=== PATIENT | female | born 1955 | race Caucasian/White ===

== ENCOUNTER 2016-10-25 16:12 | Inpatient (IN) | payer MEDICARE, OTHER ==
[2016-10-25] MEDS ORDERED: SODIUM CHLORIDE 0.9% 1,000 ML IV STA (16:43)
[2016-10-25] MEDS ORDERED: ONDANSETRON 4 MG/2 ML VIAL IVP STA (16:43)
--- NOTE | 2016-10-25 16:49 | ED ---
Nausea/Vomiting/Diarrhea HPI - General Chief complaint: Nausea/Vomiting/Diarrhea Stated complaint: chest pain Time Seen by Provider: 10/25/16 16:37 Source: patient Mode of arrival: EMS Limitations: no limitations - History of Present Illness Initial comments: 61-year-old female complains of onset of vomiting yesterday some dizziness diarrhea is concerned because she recently had a fecal transplant for C. diff. She's had no blood or mucous noted in the stool she's having dry heaves. Patient is a home peritoneal dialysis patient on dialysis for the last 6 months. She has history of pacemaker atrial fibrillation. She had no headaches dizziness focal numbness or weakness she has some brief chest discomfort but is actually describing PVCs. Occurs briefly feels like her heart flips. She does have PVCs on the monitor. She has no distinct fever chills no cough congestion she has back muscle pain and some discomfort in the abdomen. - Related Data Home Medications Medication Instructions Recorded Confirmed Insulin Glargine,Hum.rec.anlog 22 unit SQ HS 08/12/15 10/25/16 [Lantus Solostar] Ferrous Sulfate [Iron (65 MG 325 mg PO AC-SUPPER 08/13/15 10/25/16 Elemental)] Ergocalciferol [Vitamin D2 50,000 unit PO TH 04/01/16 10/25/16 (DRISDOL)] Methimazole 5 mg PO DAILY 04/01/16 10/25/16 INSULIN LISPRO (humaLOG) [humaLOG 15 units SQ AC-TID PRN 05/10/16 10/25/16 (formulary)] Omeprazole [PriLOSEC] 20 mg PO AC-BRKFST 05/10/16 10/25/16 Polyethylene Glycol 3350 [Miralax] 17 gm PO DAILY PRN 05/27/16 10/25/16 ALPRAZolam [Xanax] 1 mg PO HS 10/25/16 10/25/16 Albuterol Nebulized [Ventolin 2.5 mg INHALATION RT-QID 10/25/16 10/25/16 Nebulized] Docusate [Colace] 100 mg PO DAILY 10/25/16 10/25/16 HYDROcodone/APAP 10-325MG [[place] 1 tab PO Q6H 10/25/16 10/25/16 10-325] Lidocaine 4% Cream [Lmx 4] 1 applic TOPICAL BID PRN 10/25/16 10/25/16 Previous Rx's Medication Instructions Recorded Torsemide [Demadex] 60 mg PO DAILY tab 08/20/15 Magnesium Oxide [Mag-Ox] 250 mg PO TID tab 08/25/16 Midodrine [ProAmatine] 5 mg PO DAILY #60 tab 10/25/16 Allergies Allergy/AdvReac Type Severity Reaction Status Date / Time ketorolac tromethamine Allergy Severe Rash/Hives Verified 10/25/16 16:14 [From Toradol] influenza virus vaccine, Allergy Intermediate Swelling Verified 10/25/16 16:14 specific [Influenza Virus Vacc,Specific] Review of Systems ROS Statement: Those systems with pertinent positive or pertinent negative responses have been documented in the HPI. ROS Other: All systems not noted in ROS Statement are negative. Constitutional: Denies: fever, chills Eyes: Denies: eye pain ENT: Denies: ear pain, throat pain Respiratory: Denies: cough Cardiovascular: Reports: chest pain, palpitations Gastrointestinal: Reports: abdominal pain, nausea, vomiting, diarrhea Genitourinary: Reports: other (No urine production) Skin: Denies: rash Neurological: Denies: headache, numbness Psychiatric: Denies: anxiety, depression Hematological/Lymphatic: Denies: easy bleeding, easy bruising Past Medical History Past Medical History: Atrial Fibrillation, Chest Pain / Angina, Heart Failure, COPD, CVA/TIA, Deep Vein Thrombosis (DVT), GERD/Reflux, Hyperlipidemia, Hypertension, Memory Impairment, Renal Disease Additional Past Medical History / Comment(s): short term memory impairment;CHF- , UTI with sepsis-septic shock 10/2014; IDDM type II; back pain; neuropathy bilateral feet/legs; osteoporosis;DJD, fx sternum; blood clots/DVT, 2000 CVA with R sided weaknes, chronic kidney disease-peritoneal dialysis, 03/2016 L humerus fx, RLS, paroxysmal AFib, anemia multifactoral, cataracts bilaterally, anemia, rheumatic fever, urinary calculus , C Diff colitis, UTIs, UTI with sepsis/septic shock, chronic abdominal pain, falls. History of Any Multi-Drug Resistant Organisms: C-DIFF Date of last positivie culture/infection: 06/22/2016 MDRO Source:: stool- Cdiff Past Surgical History: Adenoidectomy, AICD, Bladder Surgery, Cholecystectomy, Heart Catheterization, Hysterectomy, Pacemaker, Tonsillectomy Additional Past Surgical History / Comment(s): AICD/pacer, colonoscopy with benign polyps removed, EGD with polyps removed from vocal cord; Benign R lung biopsy; bladder susp, peritoneal dialysis cath inserted , fecal transplant for cdiff 08/2016 Past Anesthesia/Blood Transfusion Reactions: No Reported Reaction Additional Past Anesthesia/Blood Transfusion Reaction / Comment(s): Pt has clausterphobia-doesn't like to be in room with door closed . Pt has received blood in past without reaction. Type of Cardiac Device: AICD Device Placement Date:: Past Psychological History: No Psychological Hx Reported Additional Psychological History / Comment(s): PT LIVES AT HOME WITH HER SWING SAW OPERATOR OF 23 YEARS(GABINO). She has a daughter who is very involved with her care. She has [facility] home care nurse and PT/OT. She NO LONGER DRIVES-HER DAUGHTER TAKES HER TO APPTS AND DOES SHOPPING. Pt uses a walker or cane to ambulate most of the time now. Pt has home o2 at 2.5L/NC ATC, a nebilizer, and hospital bed. 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 Adult daughter is very helpful with day- to-day activity and helping her with her CAPD. No animal exposures. No experience. No international travel Smoking Status: Former smoker Past Alcohol Use History: None Reported Additional Past Alcohol Use History / Comment(s): Pt startes smoking in 1964 and quit in 2011 Past Drug Use History: None Reported Additional Drug Use History / Comment(s): Pt has hx of alcoholism. She has not drank alcohol for 25 yrs. - Past Family History Sister(s) Family Medical History: Cancer Additional Family Medical History / Comment(s): SISTER IN HER MID 40'S OF [place] LYMPHOMA. Father Family Medical History: Congestive Heart Failure (CHF), COPD, Deep Vein Thrombosis (DVT) Additional Family Medical History / Comment(s): ETOH ABUSE. FATHER AT AGE 67 OF EMPHYSEMA AND CHF AND ETOH. Mother Family Medical History: Cancer Additional Family Medical History / Comment(s): MOTHER AT AGE 53 YRS OF LEUKEMIA. General Exam Limitations: no limitations General appearance: alert, in no apparent distress Head exam: Present: atraumatic Eye exam: Present: PERRL, EOMI. Absent: scleral icterus ENT exam: Present: normal oropharynx, mucous membranes moist Neck exam: Present: normal inspection Respiratory exam: Present: normal lung sounds bilaterally Cardiovascular Exam: Present: normal heart sounds GI/Abdominal exam: Present: soft, tenderness (Generalized tenderness no rebound or guarding) Neurological exam: Present: alert, CN II-XII intact Psychiatric exam: Present: normal affect, normal mood Skin exam: Present: warm, dry Course Vital Signs 10/25/16 10/25/16 10/25/16 16:14 17:29 18:29 Temperature 97.1 F L Pulse Rate 114 H 90 100 Respiratory 20 20 20 Rate Blood Pressure 119/75 130/56 113/65 O2 Sat by Pulse 96 97 94 L Oximetry 10/25/16 20:15 Temperature 98.1 F Pulse Rate 90 Respiratory 18 Rate Blood Pressure 101/59 O2 Sat by Pulse 97 Oximetry Medical Decision Making - Medical Decision Making Patient continues to be nauseated her lab is satisfactory for dialysis patient except for her troponin being slightly elevated but with normal CKs is mostly from her troponin leak related to her chronic renal failure. The spoken to Dr. Ko, Randallexor continue nauseated will admit her. To maintain hydration. - Lab Data Result diagrams: 10/25/16 16:20 10/25/16 16:20 Lab Results 10/25/16 10/25/16 10/25/16 Range/Units 13:24 16:20 16:20 WBC 9.0 (3.8-10.6) k/uL RBC 3.76 L (3.80-5.40) m/uL Hgb 11.3 L (11.4-16.0) gm/dL Hct 35.8 (34.0-46.0) % MCV 95.3 (80.0-100.0) fL MCH 30.1 (25.0-35.0) pg MCHC 31.6 (31.0-37.0) g/dL RDW 15.0 (11.5-15.5) % Plt Count 181 (150-450) k/uL Neutrophils % 73 % Lymphocytes % 16 % Monocytes % 6 % Eosinophils % 3 % Basophils % 1 % Neutrophils # 6.6 (1.3-7.7) k/uL Lymphocytes # 1.4 (1.0-4.8) k/uL Monocytes # 0.5 (0-1.0) k/uL Eosinophils # 0.3 (0-0.7) k/uL Basophils # 0.1 (0-0.2) k/uL Sodium 138 (137-145) mmol/L Potassium 4.6 (3.5-5.1) mmol/L Chloride 98 (98-107) mmol/L Carbon Dioxide 27 (22-30) mmol/L Anion Gap 13 mmol/L BUN 29 H (7-17) mg/dL Creatinine 7.20 H* (0.52-1.04) mg/dL Est GFR (MDRD) Af Amer 7 (>60 ml/min/1.73 sqM) Est GFR (MDRD) Non-Af 6 (>60 ml/min/1.73 sqM) Glucose 144 H (74-99) mg/dL POC Glucose (mg/dL) 147 H (75-99) mg/dL POC Glu Mortgage Loan Officer Originator ID Ailyn Douglas Calcium 8.0 L (8.4-10.2) mg/dL Total Bilirubin 0.6 (0.2-1.3) mg/dL AST 11 L (14-36) U/L ALT 30 (9-52) U/L Alkaline Phosphatase 156 H (38-126) U/L Total Creatine Kinase (30-135) U/L CK-MB (CK-2) (0.0-2.4) ng/mL CK-MB (CK-2) Rel Index Troponin I (0.000-0.034) ng/mL Total Protein 5.3 L (6.3-8.2) g/dL Albumin 2.6 L (3.5-5.0) g/dL Amylase <30 L (30-110) U/L Lipase 19 L (23-300) U/L 10/25/16 Range/Units 16:20 WBC (3.8-10.6) k/uL RBC (3.80-5.40) m/uL Hgb (11.4-16.0) gm/dL Hct (34.0-46.0) % MCV (80.0-100.0) fL MCH (25.0-35.0) pg MCHC (31.0-37.0) g/dL RDW (11.5-15.5) % Plt Count (150-450) k/uL Neutrophils % % Lymphocytes % % Monocytes % % Eosinophils % % Basophils % % Neutrophils # (1.3-7.7) k/uL Lymphocytes # (1.0-4.8) k/uL Monocytes # (0-1.0) k/uL Eosinophils # (0-0.7) k/uL Basophils # (0-0.2) k/uL Sodium (137-145) mmol/L Potassium (3.5-5.1) mmol/L Chloride (98-107) mmol/L Carbon Dioxide (22-30) mmol/L Anion Gap mmol/L BUN (7-17) mg/dL Creatinine (0.52-1.04) mg/dL Est GFR (MDRD) Af Amer (>60 ml/min/1.73 sqM) Est GFR (MDRD) Non-Af (>60 ml/min/1.73 sqM) Glucose (74-99) mg/dL POC Glucose (mg/dL) (75-99) mg/dL POC Glu Mortgage Loan Officer Originator ID Calcium (8.4-10.2) mg/dL Total Bilirubin (0.2-1.3) mg/dL AST (14-36) U/L ALT (9-52) U/L Alkaline Phosphatase (38-126) U/L Total Creatine Kinase 28 L (30-135) U/L CK-MB (CK-2) 3.0 H* (0.0-2.4) ng/mL CK-MB (CK-2) Rel Index 10.7 Troponin I 0.053 H* (0.000-0.034) ng/mL Total Protein (6.3-8.2) g/dL Albumin (3.5-5.0) g/dL Amylase (30-110) U/L Lipase (23-300) U/L - EKG Data -: EKG Interpreted by Me 10/25/16 16:49 EKG 10/25/2016 at 1622 ventricular rate 1 10 bpm, WA interval 116 ms, QRS duration 118 ms QT interval 386 ms atrial sensed ventricular paced rhythm biventricular pacemaker detected abnormal ECG - Radiology Data Radiology results: report reviewed Cardiomegaly interstitial opacities correlate for congestive heart failure Disposition Clinical Impression: Persistent vomiting, History of Clostridium difficile, Chronic renal failure Disposition: ADMITTED IP TO THIS HOSP Condition: Fair Time of Disposition: 20:54
[2016-10-25 17:07] LABS: Basophils # (A) 0.1 k/uL (0-0.2); Basophils % (A) 1 %; CH 30.8; CHCM 32.5; Eosinophils # (A) 0.3 k/uL (0-0.7); Eosinophils % (A) 3 %; HCT 35.8 % (34.0-46.0); HDW 2.82; HGB 11.3 gm/dL (11.4-16.0); Luc # (Auto) 0.11; Luc % (Auto) 1; Lymphocytes # (A) 1.4 k/uL (1.0-4.8); Lymphocytes % (A) 16 %; MCH 30.1 pg (25.0-35.0); MCHC 31.6 g/dL (31.0-37.0); MCV 95.3 fL (80.0-100.0); Mean Platelet Volume 8.2; Monocytes # (A) 0.5 k/uL (0-1.0); Monocytes % (A) 6 %; Neutrophils # (A) 6.6 k/uL (1.3-7.7); Neutrophils % (A) 73 %; RBC 3.76 m/uL (3.80-5.40); WBC (Perox) 9.17
[2016-10-25 17:20] LABS: ALT 30 U/L (9-52); AST 11 U/L (14-36); Alkaline Phosphatase 156 U/L (38-126); Amylase <30 U/L (30-110); Anion Gap 13 mmol/L; Blood Urea Nitrogen 29 mg/dL (7-17); Carbon Dioxide 27 mmol/L (22-30); Chloride 98 mmol/L (98-107); Glucose 144 mg/dL (74-99); Potassium 4.6 mmol/L (3.5-5.1); Sodium 138 mmol/L (137-145); Total Bilirubin 0.6 mg/dL (0.2-1.3); Total Protein 5.3 g/dL (6.3-8.2)
--- NOTE | 2016-10-25 17:22 | XR ---
EXAMINATION TYPE: XR chest 2V DATE OF EXAM: 10/25/2016 5:08 PM COMPARISON: 08/21/2016 HISTORY: 61-year-old female weakness, dizziness, pain. TECHNIQUE: AP and lateral views FINDINGS: Left anterior chest wall pacemaker generator with right atrial, right ventricular, and coronary sinus leads. Heart remains mildly enlarged. There is diffuse interstitial densities which persist. Suggestion of a small pleural effusion on the lateral view. No christopher consolidation. IMPRESSION: Mild cardiomegaly with interstitial opacities and small pleural effusion on the lateral view. Correla te for mild CHF with pulmonary vascular congestion.
[2016-10-25] MEDS ORDERED: HYDROmorphone 1 MG/ML 1 ML SYRINGE IVP STA ×2 (17:31→18:16)
[2016-10-25 17:33] LABS: Non-African American GFR(MDRD) 6 (>60 ml/min/1.73 sqM)
[2016-10-25 18:38] LABS: Troponin I 0.053 ng/mL (0.000-0.034)
[2016-10-25 20:40] LABS: Glucose,Whole Blood 147 mg/dL (75-99)
[2016-10-25] MEDS ORDERED: NALOXONE 0.4 MG/ML 1 ML VIAL IV PRN (20:55)
[2016-10-25] MEDS ORDERED: ONDANSETRON 4 MG/2 ML VIAL IVP PRN (20:55)
[2016-10-25] MEDS ORDERED: LIDOCAINE 4% CREAM 5 GM TUBE TOPICAL PRN (20:57)
[2016-10-25] MEDS ORDERED: INSULIN LISPRO (humaLOG) 300 UNIT/3 ML VIAL SQ PRN (20:57)
[2016-10-25] MEDS: HYDROcodone/APAP 10-325MG 1 EACH TAB PO SCH (21:16)
[2016-10-25] MEDS ORDERED: 0.9% NACL WITH KCL 20 MEQ/L 1,000 ML IV SCH (21:30)
[2016-10-25 21:39] LABS: Glucose,Whole Blood 114 mg/dL (75-99)
[2016-10-25] MEDS: INSULIN LISPRO (humaLOG) 300 UNIT/3 ML VIAL SQ SCH (22:09)
[2016-10-25] MEDS: INSULIN GLARGINE 100 UNIT/ML 10 ML VIAL SQ SCH (22:10)
[2016-10-25] MEDS: ALPRAZolam 0.5 MG TAB PO SCH (22:19)
[2016-10-25] MEDS: MAGNESIUM OXIDE 250 MG TAB PO SCH (22:20)
[2016-10-26] MEDS: HYDROcodone/APAP 10-325MG 1 EACH TAB PO SCH ×4 (03:44→20:53)
[2016-10-26 07:37] LABS: Glucose,Whole Blood 82 mg/dL (75-99)
[2016-10-26 08:01] LABS: Basophils # (A) 0.1 k/uL (0-0.2); Basophils % (A) 1 %; CH 30.5; CHCM 31.2; Eosinophils # (A) 0.3 k/uL (0-0.7); Eosinophils % (A) 4 %; HCT 32.3 % (34.0-46.0); HDW 2.73; Hypochromasia Slight; Luc # (Auto) 0.14; Luc % (Auto) 2; Lymphocytes # (A) 1.4 k/uL (1.0-4.8); Lymphocytes % (A) 24 %; MCH 29.7 pg (25.0-35.0); MCHC 30.1 g/dL (31.0-37.0); MCV 98.4 fL (80.0-100.0); Mean Platelet Volume 8.4; Monocytes # (A) 0.4 k/uL (0-1.0); Monocytes % (A) 6 %; Neutrophils # (A) 3.7 k/uL (1.3-7.7); Neutrophils % (A) 63 %; RBC 3.28 m/uL (3.80-5.40); RDW 14.8 % (11.5-15.5); WBC (Perox) 6.33
[2016-10-26 08:08] LABS: HGB 9.7 gm/dL (11.4-16.0)
[2016-10-26 08:33] LABS: Calcium 7.8 mg/dL (8.4-10.2); Potassium 5.3 mmol/L (3.5-5.1)
[2016-10-26] MEDS: MAGNESIUM OXIDE 250 MG TAB PO SCH ×3 (08:40→20:53)
[2016-10-26] MEDS: INSULIN LISPRO (humaLOG) 300 UNIT/3 ML VIAL SQ SCH ×4 (08:40→21:33)
[2016-10-26] MEDS: METHIMAZOLE 5 MG TAB PO SCH (08:40)
[2016-10-26] MEDS: PANTOPRAZOLE 40 MG TABLET PO SCH (08:40)
[2016-10-26] MEDS: TORSEMIDE 20 MG TAB PO SCH (08:40)
[2016-10-26] MEDS: ALBUTEROL NEBULIZED 2.5 MG/3 ML INHALATION SCH ×4 (09:02→19:31)
[2016-10-26 12:21] LABS: Glucose,Whole Blood 91 mg/dL (75-99)
--- NOTE | 2016-10-26 13:00 | P.NPCON ---
History of Present Illness - Reason for Consult Consult date: 10/26/16 end stage renal disease - Chief Complaint Nausea vomiting diarrhea in a patient with CAPD - History of Present Illness This is a 61-year-old female with ESRD on CAPD came in with nausea vomiting diarrhea for the last 2 days no fever chills. No headache dizziness cough shortness of breath. She is improved this morning with no nausea vomiting diarrhea. Past history significant for C. diff colitis with of fecal transplant supposedly approximately in August 2016 Prior to this recent illness 2 days ago she was doing very well on CAPD with a cycler she's not sure of the exchanges as her daughter does her for her. Past history significant for pacer atrial fibrillation COPD DVT and diabetes with diabetic neuropathy with severe pain in her legs. She has had a heart catheterization cholecystectomy tonsillectomy AICD pacer. Past Medical History Past Medical History: Atrial Fibrillation, Chest Pain / Angina, Heart Failure, COPD, CVA/TIA, Deep Vein Thrombosis (DVT), GERD/Reflux, Hyperlipidemia, Hypertension, Memory Impairment, Renal Disease Additional Past Medical History / Comment(s): short term memory impairment;CHF- , UTI with sepsis-septic shock 10/2014; IDDM type II; back pain; neuropathy bilateral feet/legs; osteoporosis;DJD, fx sternum; blood clots/DVT, 2000 CVA with R sided weaknes, chronic kidney disease-peritoneal dialysis, 03/2016 L humerus fx, RLS, paroxysmal AFib, anemia multifactoral, cataracts bilaterally, anemia, rheumatic fever, urinary calculus , C Diff colitis, UTIs, UTI with sepsis/septic shock, chronic abdominal pain, falls. History of Any Multi-Drug Resistant Organisms: C-DIFF Date of last positivie culture/infection: 06/22/2016 MDRO Source:: stool- Cdiff Past Surgical History: Adenoidectomy, AICD, Bladder Surgery, Cholecystectomy, Heart Catheterization, Hysterectomy, Pacemaker, Tonsillectomy Additional Past Surgical History / Comment(s): AICD/pacer, colonoscopy with benign polyps removed, EGD with polyps removed from vocal cord; Benign R lung biopsy; bladder susp, peritoneal dialysis cath inserted , fecal transplant for cdiff 08/2016 at [facility] Past Anesthesia/Blood Transfusion Reactions: No Reported Reaction Additional Past Anesthesia/Blood Transfusion Reaction / Comment(s): Pt has clausterphobia-doesn't like to be in room with door closed . Pt has received blood in past without reaction. Type of Cardiac Device: AICD Device Placement Date:: w Past Psychological History: No Psychological Hx Reported Additional Psychological History / Comment(s): PT LIVES AT HOME WITH HER TUBE MAN OF 23 YEARS(GABINO). She has a daughter who is very involved with her care. She has [facility] home care nurse and PT/OT. She NO LONGER DRIVES-HER DAUGHTER TAKES HER TO APPTS AND DOES SHOPPING. Pt uses a walker or cane to ambulate most of the time now. Pt has home o2 at 2.5L/NC ATC, a nebilizer, and hospital bed. 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 Adult daughter is very helpful with day- to-day activity and helping her with her CAPD. No animal exposures. No experience. No international travel Smoking Status: Former smoker Past Alcohol Use History: None Reported Additional Past Alcohol Use History / Comment(s): Pt startes smoking in 1964 and quit in 2011 Past Drug Use History: None Reported Additional Drug Use History / Comment(s): Pt has hx of alcoholism. She has not drank alcohol for 25 yrs. - Past Family History Sister(s) Family Medical History: Cancer Additional Family Medical History / Comment(s): SISTER IN HER MID 40'S OF [place] LYMPHOMA. Father Family Medical History: Congestive Heart Failure (CHF), COPD, Deep Vein Thrombosis (DVT) Additional Family Medical History / Comment(s): ETOH ABUSE. FATHER AT AGE 67 OF EMPHYSEMA AND CHF AND ETOH. Mother Family Medical History: Cancer Additional Family Medical History / Comment(s): MOTHER AT AGE 53 YRS OF LEUKEMIA. Medications and Allergies Home Medications Medication Instructions Recorded Confirmed Type Insulin Glargine,Hum.rec.anlog 22 unit SQ HS 08/12/15 10/25/16 History [Lantus Solostar] Ferrous Sulfate [Iron (65 MG 325 mg PO AC-SUPPER 08/13/15 10/25/16 History Elemental)] Ergocalciferol [Vitamin D2 50,000 unit PO TH 04/01/16 10/25/16 History (DRISDOL)] Methimazole 5 mg PO DAILY 04/01/16 10/25/16 History INSULIN LISPRO (humaLOG) [humaLOG 15 units SQ AC-TID PRN 05/10/16 10/25/16 History (formulary)] Omeprazole [PriLOSEC] 20 mg PO AC-BRKFST 05/10/16 10/25/16 History Polyethylene Glycol 3350 [Miralax] 17 gm PO DAILY PRN 05/27/16 10/25/16 History ALPRAZolam [Xanax] 1 mg PO HS 10/25/16 10/25/16 History Albuterol Nebulized [Ventolin 2.5 mg INHALATION RT-QID 10/25/16 10/25/16 History Nebulized] Docusate [Colace] 100 mg PO DAILY 10/25/16 10/25/16 History HYDROcodone/APAP 10-325MG [[place] 1 tab PO Q6H 10/25/16 10/25/16 History 10-325] Lidocaine 4% Cream [Lmx 4] 1 applic TOPICAL BID PRN 10/25/16 10/25/16 History Allergies Allergy/AdvReac Type Severity Reaction Status Date / Time ketorolac tromethamine Allergy Severe Rash/Hives Verified 10/25/16 16:14 [From Toradol] influenza virus vaccine, Allergy Intermediate Swelling Verified 10/25/16 16:14 specific [Influenza Virus Vacc,Specific] Physical Exam Vitals: Vital Signs Temp Pulse Pulse Resp BP BP Pulse Ox 10/26/16 07:00 96.9 F L 80 16 83/51 97 10/25/16 23:00 98.2 F 114 H 16 112/68 98 10/25/16 21:16 98.3 F 79 18 106/73 95 Intake and Output 10/25/16 10/26/16 10/26/16 22:59 06:59 14:59 Output Total 0 Balance 0 Output: Urine 0 Stool 0 Other: Voiding Method Toilet Bedside Commode CAPD CAPD # Voids 0 Weight 73 kg On examination she is awake alert oriented. HEENT exam no JVP neck is supple no facial asymmetry no thyromegaly card bruit no nodes in the neck axilla Lungs are clear to auscultation percussion good air entry bilaterally Heart sounds are unremarkable for any murmur rub gallop. Abdomen soft nontender no organomegaly status masses. Extremity exam was no edema Neurologically awake alert oriented. No focal motor deficit. She has painful legs because of neuropathy Results - Lab Results Most recent lab results Calcium 7.8 mg/dL (8.4-10.2) L 10/26/16 07:29 10/26/16 07:29 10/26/16 07:29 Assessment and Plan Plan: Impression. 1. ESRD on CAPD with a cycler at home. 2. Admitted with nausea vomiting diarrhea likely a viral syndrome for 2 days. Better this morning 3. History of diabetes with multiple competition including neuropathy and nephropathy. 4. History of DVT, CVA right-sided weakness which seemingly has resolved, atrial fibrillation, ASHD with cardiac catheterization, pacer, 5. History of recent C. diff colitis requiring fecal transplant in August 2016. 6. Anemia of ESRD. Hemoglobin is 11.3 yesterday and this morning 9.7, likely fall from IV fluids Recommendation. Discontinue IV fluids. We will watch hemoglobin either here in the hospital or as an outpatient. She will need to resume her Epogen. Patient may be discharged home if she is better by this evening. If necessary we'll start her on 1.5% 2500 mL 4 exchanges a day, if she has to stay back..
--- NOTE | 2016-10-26 14:08 | HP ---
DATE OF ADMISSION: 10/25/2016 PRESENTING COMPLAINT: Diarrhea and dry heaving. HISTORY OF PRESENTING COMPLAINT: This is a 61-year-old patient well known to be from multiple prior admissions. Patient's chronic stable medical conditions include end-stage kidney disease on peritoneal dialysis being followed by Dr. Renner. Other stable medical conditions include diabetes mellitus type 2 on insulin, COPD, chronic respiratory failure, home oxygen, sleep apnea, peripheral neuropathy, secondary hyperparathyroidism. Patient has got chronic abdominal pain on and off, has had multiple episodes. C. diff. [facility] to have any [facility] for 2 weeks. Patient presents with dry heaving for 24 hours and also had diarrhea for 2 days, mushy and actually after presenting to the hospital her diarrhea actually resolves. Patient is keen to eat food. Patient is on peritoneal dialysis. REVIEW OF SYSTEMS: CONSTITUTIONAL: Weak and tired. HEENT: None. RESPIRATORY: Baseline some short of breath. CARDIOVASCULAR: None. GASTROINTESTINAL: As above. GENITOURINARY: No urinary frequency or dysuria. MUSCULOSKELETAL: None. DERMATOLOGICAL: None. HEMATOLOGICAL: None. LYMPHATICS: None. PSYCHIATRY: Anxiety. NEUROLOGICAL: Peripheral neuropathy. 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 diff infection with fecal transplant, chronic abdominal pain. PAST SURGICAL HISTORY: Adenoidectomy, AICD, bladder surgery, cholecystectomy, cardiac catheterization, hysterectomy, pacemaker, tonsillectomy, bladder suspension. Past psych history of claustrophobia. SOCIAL HISTORY: Lives with a branch service representative over 20 years, name Gilberto, a daughter ( ). Uses a cane and a walker. Home oxygen 2.5 L nasal cannula. 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 Patient used to drink excessive alcohol in the past. HOME MEDICATIONS: 1. Demadex 60 mg p.o. daily. 2. MiraLax 17 gm p.o. daily p.r.n. 3. Prilosec 20 mg p.o. at breakfast. 4. ProAmatine 5 mg p.o. daily. 5. Methimazole 5 mg p.o. daily. 6. Magnesium-oxide 250 mg p.o. t.i.d. 7. Lidocaine 4% one application topical b.i.d. p.r.n. 8. Insulin Lantus 22 units subQ q.h.s. 9. Humalog 15 units subQ t.i.d. p.r.n. 10. [place] 10 one tablet q.6. 11. Iron 325 p.o. with supper. 12. Vitamin D2 fifty thousand units on . 13. Colace 100 mg p.o. daily. 14. Ventolin 2.5 nebulizer q.i.d. 15. Xanax 1 mg p.o. q.h.s. Allergies to KETOROLAC, INFLUENZA VACCINE. On examination, vital signs on presentation: Temperature 97.1, pulse 114, respiration 20, blood pressure 109/75, pulse ox 96% on room air. GENERAL APPEARANCE: Average build, lying in bed, tired-appearing. EYES: Pupils equal, conjunctivae are pale. HEENT: External and ears normal. Oral cavity dry. NECK: JVD unable to assess. Mass not palpable. Respiratory effort normal. LUNGS: Diminished breath sounds. CARDIOVASCULAR: First and second sounds normal. Mild edema. ABDOMEN: Mild distention, soft. Liver and spleen not palpable. LYMPHATIC: No lymph nodes palpable in neck or axillae. PSYCHIATRY: Alert and oriented x3. Mood and affect anxious-appearing. NEUROLOGICAL: Pupils are equal. Cranial nerves grossly intact. Power and sensation grossly intact. INVESTIGATIONS: White count 9. Hemoglobin 9.3, repeat 9.7. Potassium 5.3, BUN 33, creatinine 7.79, bilirubin 0.6, albumin 2.6. ASSESSMENT: 1. Acute gastroenteritis, probably viral, likely self-limiting as patient's diarrhea is settling down. Patient also had lot of nausea. Pain actually wanting food. There is no fever. History of Clostridium difficile with ( ) fecal transplant. 2. Chronic congestive heart failure; ejection fraction 20% to 25% systolic dysfunction from nonischemic cardiomyopathy. 3. End-stage kidney disease on peritoneal dialysis. 4. Diabetes mellitus type 2, causing peripheral neuropathy, currently requiring insulin. 5. Chronic obstructive pulmonary disease in an ex-smoker. 6. Chronic respiratory failure, hypoxic, on home oxygen 2.5 L. 7. Essential hypertension. 8. Chronic hyperlipidemia. 9. Sleep apnea. 10. Restless leg syndrome. 11. Pacemaker. 12. Chronically thrombosed portal vein. 13. Secondary hypoparathyroid. 14. Paroxysmal atrial fibrillation. 15. Anemia, multifactorial, including renal failure. 16. Chronic functional abdominal pain. PLAN: At this point, home medications are resumed. Patient is put on a clear liquid diet. As patient's stools have settled down, I highly doubt this is C. diff. Patient did not have any obvious evidence of active infection at this point. Care was discussed with the patient. Nephrology has been consulted for peritoneal dialysis.
[2016-10-26] MEDS: PSYLLIUM HUSK 100% 6 GM PACKET PO SCH ×2 (14:52→20:53)
[2016-10-26] MEDS: SODIUM CHLORIDE 0.9% 250 ML IV SCH ×4 (17:21→18:59)
[2016-10-26 17:30] LABS: Glucose,Whole Blood 110 mg/dL (75-99)
[2016-10-26] MEDS: DIALYSIS (PERITONEAL) DEX 1.5% 2,500 ML INTRAPERIT SCH ×2 (18:07→23:50)
[2016-10-26] MEDS: ALPRAZolam 0.5 MG TAB PO SCH (20:53)
[2016-10-26 21:22] LABS: Glucose,Whole Blood 199 mg/dL (75-99)
[2016-10-26] MEDS: INSULIN GLARGINE 100 UNIT/ML 10 ML VIAL SQ SCH (21:33)
[2016-10-27] MEDS: HYDROcodone/APAP 10-325MG 1 EACH TAB PO SCH ×4 (03:48→20:02)
[2016-10-27] MEDS: DIALYSIS (PERITONEAL) DEX 1.5% 2,500 ML INTRAPERIT SCH ×3 (06:01→17:54)
[2016-10-27 07:44] LABS: Glucose,Whole Blood 137 mg/dL (75-99)
[2016-10-27] MEDS: ALBUTEROL NEBULIZED 2.5 MG/3 ML INHALATION SCH ×4 (07:48→19:13)
[2016-10-27] MEDS: INSULIN LISPRO (humaLOG) 300 UNIT/3 ML VIAL SQ SCH ×6 (08:08→21:12)
[2016-10-27] MEDS: METHIMAZOLE 5 MG TAB PO SCH (08:09)
[2016-10-27] MEDS: TORSEMIDE 20 MG TAB PO SCH (08:09)
[2016-10-27] MEDS: MAGNESIUM OXIDE 250 MG TAB PO SCH ×3 (08:09→21:13)
[2016-10-27] MEDS: PANTOPRAZOLE 40 MG TABLET PO SCH (08:10)
[2016-10-27] MEDS: PSYLLIUM HUSK 100% 6 GM PACKET PO SCH ×2 (08:13→20:02)
--- NOTE | 2016-10-27 10:58 | P.PN ---
Subjective Patient is seen in follow-up for end-stage renal disease. She is maintained on peritoneal dialysis. Patient presented with nausea vomiting and diarrhea for 2 days. She did have 1 episode of diarrhea last night but none this morning area she did eat breakfast this morning. Denies any chest pain or shortness of breath. Vital signs are stable. General: The patient appeared well nourished and normally developed. HEENT: Head exam is unremarkable. Neck is without jugular venous distension. LUNGS: Lungs are clear to auscultation and percussion. Breath sounds decreased. HEART: Rate and Rhythm are regular. First and second heart sounds normal. No murmurs, rubs or gallops. ABDOMEN: Abdominal exam reveals normal bowel sounds. Non-tender and non- distended. No evidence of peritonitis. EXTREMITITES: No clubbing, cyanosis, or edema. Objective - Vital Signs Vital signs: Vital Signs Temp 96.8 F L 10/27/16 07:00 Pulse 93 10/27/16 07:00 Resp 18 10/27/16 08:00 BP 110/62 10/27/16 07:00 Pulse Ox 97 10/27/16 07:00 Intake & Output 10/26/16 10/27/16 10/27/16 18:59 06:59 18:59 Intake Total 440 200 Balance 440 200 Weight 75.4 kg Intake: Oral 440 200 Other: Voiding Method Bedside Commode Bedside Commode CAPD CAPD # Voids 0 0 # Bowel Movements 0 - Labs CBC & Chem 7: 10/26/16 07:29 10/26/16 07:29 Labs: Abnormal Lab Results - Last 24 Hours (Table) 10/26/16 10/26/16 10/27/16 Range/Units 17:12 21:21 07:42 POC Glucose (mg/dL) 110 H 199 H 137 H (75-99) mg/dL Assessment and Plan Plan: Assessment: #1. End-stage renal disease maintained on peritoneal dialysis. #2. Vomiting and diarrhea possibly related to gastroenteritis. Improved. #3. Anemia of chronic kidney disease. Rule out iron deficiency. #4. Chronic kidney disease mineral bone disease. #5. 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 Plan: Continue with current peritoneal dialysis exchanges with 2.5 L 1.5% exchanges every 6 hours. Nephrocaps daily. Check iron studies. Stable to be discharged home from nephrology standpoint.
[2016-10-27 11:57] LABS: Phosphorous 4.9 mg/dL (2.5-4.5)
[2016-10-27 12:05] LABS: % Iron Saturation 33.3 % (20-50)
[2016-10-27 12:24] LABS: Glucose,Whole Blood 115 mg/dL (75-99)
[2016-10-27] MEDS: FOLIC ACID-VIT B COMPLEX-VIT C 1 CAP PO SCH (13:14)
[2016-10-27 17:17] LABS: Glucose,Whole Blood 124 mg/dL (75-99)
[2016-10-27] MEDS: ALPRAZolam 0.5 MG TAB PO SCH (20:02)
[2016-10-27 20:51] LABS: Glucose,Whole Blood 151 mg/dL (75-99)
[2016-10-27] MEDS: INSULIN GLARGINE 100 UNIT/ML 10 ML VIAL SQ SCH ×2 (21:13→21:16)
[2016-10-27 21:33] LABS: Amorphous Sediment,Urine Occasional /hpf; Appearance,Urine Turbid (Clear); Bacteria,Urine Many /hpf; Bilirubin,Urine Negative (Negative); Glucose,Urine (UA) Negative (Negative); Ketones,Urine Negative (Negative); Leukocyte Esterase,Urine Large (Negative); Nitrite,Urine Negative (Negative); PH, Urine 6.5 (5.0-8.0); Particle Count 59121; Protein,Urine 2+ (Negative); RBC,Urine 31 /hpf (0-5); Squamous Epithelial Cell,Urine 28 /hpf (0-4); UA Billing (MACRO vs. MICRO) MICRO; Urobilinogen,Urine <2.0 mg/dL (<2.0); WBC,Urine >182 /hpf (0-5)
[2016-10-27 21:57] LABS: Specific Gravity,Urine 1.015 (1.001-1.035)
--- NOTE | 2016-10-27 22:03 | PN ---
DATE OF SERVICE: 10/27/2016 PRESENTING COMPLAINT: Diarrhea and ( ). INTERVAL HISTORY: This patient presented with multiple problems and end-stage kidney disease, presented with acute gastroenteritis. Diarrhea is actually resolved. Patient feeling much better, requesting to stay another day. Getting peritoneal dialysis. Review of systems done for constitutional, cardiovascular, GI, pulmonary; relevant findings as above. Current medications are reviewed. On examination, temperature 96.8, pulse 93, respirations 20, blood pressure 110/62, pulse ox 97% on room air. GENERAL APPEARANCE: Sitting up, comfortable. EYES: Pupils equal. Conjunctivae normal. NECK: JVD not raised. Mass not palpable. RESPIRATORY: Effort normal. LUNGS: Fair air entry. Decreased breath sounds. CARDIOVASCULAR: First and second sounds normal. Minimal edema. ABDOMEN: Soft, nontender. Liver and spleen not palpable. PSYCHIATRY: Awake, answering questions. INVESTIGATIONS: Accu-Cheks are noted. ASSESSMENT: 1. Acute gastroenteritis likely viral self-limiting much improved. 2. Patient is status post treatment for fecal transplant for Clostridium difficile. 3. Chronic congestive heart failure; ejection fraction 20% to 25% from nonischemic cardiomyopathy. 4. End stage kidney disease, on peritoneal dialysis. 5. Diabetes mellitus type 2 causing peripheral neuropathy requiring insulin. 6. Chronic obstructive pulmonary disease in an ex-smoker. 7. Respiratory failure, hypoxic, on home oxygen 2.5 liters. 8. Essential hypertension. 9. Chronic hyperlipidemia. 10. Sleep apnea. 11. Restless leg syndrome. 12. Pacemaker. 13. Chronically thrombosed portal vein. 14. Secondary hypoparathyroidism. 15. Paroxysmal atrial fibrillation. 16. Anemia, multifactorial, including renal failure. 17. Chronic functional abdominal pain. PLAN: Doing much better. The patient will be discharged tomorrow. Patient diet has been advanced to a soft bland.
[2016-10-28] MEDS: DIALYSIS (PERITONEAL) DEX 1.5% 2,500 ML INTRAPERIT SCH ×3 (00:21→13:16)
[2016-10-28] MEDS: HYDROcodone/APAP 10-325MG 1 EACH TAB PO SCH ×3 (02:09→14:12)
[2016-10-28 07:16] LABS: Glucose,Whole Blood 118 mg/dL (75-99)
[2016-10-28] MEDS: ALBUTEROL NEBULIZED 2.5 MG/3 ML INHALATION SCH ×2 (08:02→11:27)
[2016-10-28 08:26] VITALS: BP 99/64
[2016-10-28] MEDS: PSYLLIUM HUSK 100% 6 GM PACKET PO SCH (08:29)
[2016-10-28] MEDS: TORSEMIDE 20 MG TAB PO SCH (08:29)
[2016-10-28] MEDS: MAGNESIUM OXIDE 250 MG TAB PO SCH (08:29)
[2016-10-28] MEDS: METHIMAZOLE 5 MG TAB PO SCH (08:29)
[2016-10-28] MEDS: PANTOPRAZOLE 40 MG TABLET PO SCH (08:29)
[2016-10-28] MEDS: INSULIN LISPRO (humaLOG) 300 UNIT/3 ML VIAL SQ SCH ×4 (08:30→13:17)
[2016-10-28] MEDS: FOLIC ACID-VIT B COMPLEX-VIT C 1 CAP PO SCH (08:30)
--- NOTE | 2016-10-28 11:39 | P.PN ---
Subjective Patient is seen in follow-up for end-stage renal disease. She is maintained on peritoneal dialysis. Patient presented with nausea vomiting and diarrhea for 2 days. This seems to have resolved and she is tolerating oral intake well. Denies any chest pain or shortness of breath. Does admit to weight gain. Vital signs are stable. General: The patient appeared well nourished and normally developed. HEENT: Head exam is unremarkable. Neck is without jugular venous distension. LUNGS: Lungs are clear to auscultation and percussion. Breath sounds decreased. HEART: Rate and Rhythm are regular. First and second heart sounds normal. No murmurs, rubs or gallops. ABDOMEN: Abdominal exam reveals normal bowel sounds. Non-tender and non- distended. No evidence of peritonitis. EXTREMITITES: No clubbing, cyanosis, or edema. Objective - Vital Signs Vital signs: Vital Signs Temp 96.5 F L 10/28/16 07:00 Pulse 104 H 10/28/16 07:00 Resp 20 10/28/16 07:00 BP 99/64 10/28/16 07:00 Pulse Ox 95 10/28/16 07:00 Intake & Output 10/27/16 10/28/16 10/28/16 18:59 06:59 18:59 Intake Total 400 Output Total 0 Balance 0 400 Weight 78.3 kg 79.6 kg Intake: Oral 400 Output: Stool 0 Other: Voiding Method Bedside Commode Bedside Commode CAPD # Voids 0 1 # Bowel Movements 0 0 - Labs CBC & Chem 7: 10/26/16 07:29 10/26/16 07:29 Labs: Abnormal Lab Results - Last 24 Hours (Table) 10/27/16 10/27/16 10/27/16 Range/Units 11:09 12:23 17:15 POC Glucose (mg/dL) 115 H 124 H (75-99) mg/dL Phosphorus 4.9 H (2.5-4.5) mg/dL TIBC 189 L (265-497) ug/dL Ferritin 772 H (11-264) ng/mL Urine Appearance (Clear) Urine Protein (Negative) Urine Blood (Negative) Ur Leukocyte Esterase (Negative) Urine RBC (0-5) /hpf Urine WBC (0-5) /hpf Urine WBC Clumps (None) /hpf Ur Squamous Epith Cells (0-4) /hpf Amorphous Sediment (None) /hpf Urine Bacteria (None) /hpf 10/27/16 10/27/16 10/28/16 Range/Units 20:49 21:20 07:14 POC Glucose (mg/dL) 151 H 118 H (75-99) mg/dL Phosphorus (2.5-4.5) mg/dL TIBC (265-497) ug/dL Ferritin (11-264) ng/mL Urine Appearance Turbid H (Clear) Urine Protein 2+ H (Negative) Urine Blood Moderate H (Negative) Ur Leukocyte Esterase Large H (Negative) Urine RBC 31 H (0-5) /hpf Urine WBC >182 H (0-5) /hpf Urine WBC Clumps Many H (None) /hpf Ur Squamous Epith Cells 28 H (0-4) /hpf Amorphous Sediment Occasional H (None) /hpf Urine Bacteria Many H (None) /hpf Assessment and Plan Plan: Assessment: #1. End-stage renal disease maintained on peritoneal dialysis. #2. Vomiting and diarrhea possibly related to gastroenteritis. Improved. #3. Anemia of chronic kidney disease. #4. Chronic kidney disease mineral bone disease. #5. 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 Plan: Continue with current peritoneal dialysis exchanges - I will increase the dose to 2.5% solution. Nephrocaps daily. Stable to be discharged home from nephrology standpoint.
[2016-10-28] MEDS ORDERED: DIALYSIS (PERITONEAL) DEX 2.5% 2,500 ML INTRAPERIT ONE (12:00)
[2016-10-28 12:32] LABS: Glucose,Whole Blood 118 mg/dL (75-99)
[2016-10-28 15:08] VITALS: PULSE 109; RESP 21; TEMP 95.9
--- NOTE | 2016-10-28 22:12 | DS ---
DATE OF ADMISSION: 10/25/2016 DATE OF DISCHARGE: 10/28/2016 FINAL DIAGNOSES: 1. Acute gastroenteritis, likely viral, self-limiting. 2. Patient is status post treatment for fecal transplant for recurrent Clostridium difficile. 3. Chronic congestive heart failure, ejection fraction 25% from nonischemic cardiomyopathy. 4. End-stage kidney disease on peritoneal dialysis. 5. Diabetes mellitus type 2 causing peripheral neuropathy, requiring insulin. 6. Chronic obstructive pulmonary disease in an ex-smoker. 7. Respiratory failure, hypoxic, on home oxygen, chronic 2.5L. 8. Essential hypertension. 9. Chronic hyperlipidemia. 10. Sleep apnea. 11. Restless legs syndrome. 12. Patient has a chronically thrombosed portal vein. 13. Secondary hyperparathyroidism from end-stage kidney disease. 14. Paroxysmal atrial fibrillation. 15. Anemia, multifactorial, including renal failure. 16. Chronic functional abdominal pain. 17. End-stage kidney disease from diabetic nephropathy and hypertensive nephrosclerosis. HOSPITAL COURSE: This patient presented with diarrhea which was self-limiting, felt to be acute gastroenteritis. No further diarrhea, tolerating a diet. His peritoneal dialysis was coordinated by Dr. Martínez. Patient has had no urinary symptoms, but does frequency, dysuria. Hence, UA is not to be addressed any further. Patient is tolerating a diet. On examination: LUNGS: Slightly decreased breath sounds. CARDIOVASCULAR: First and second seconds are normal. PSYCH: Alert and oriented x3. Care was discussed with the patient in detail. DISCHARGE MEDICATIONS: 1. Lantus 22 units subcu q.h.s. 2. Iron 65 mg, 325 mg with supper. 3. Demadex 60 mg p.o. daily. 4. Drisdol 50,000 units p.o. on . 5. Methimazole 5 mg p.o. daily. 6. Humalog 50 units subcu a.c. t.i.d. 7. Prilosec 20 mg with breakfast. 8. MiraLax 17 g p.o. daily p.r.n. 9. Magnesium oxide 250 mg p.o. t.i.d. 10. Xanax 1 mg p.o. q.h.s. 11. Ventolin 2.5 q.i.d. 12. [place] 10, 1 tablet p.o. every 6 hours. 13. Lidocaine 4% cream topical b.i.d. p.r.n. 14. Midodrine 5 mg p.o. daily. 15. Vitamins. 16. Nephrocaps 1 capsule p.o. daily. Patient's peritoneal dialysis to continue. Follow up with Dr. Kothari in 1 week. Follow up with Dr. Renner in 1 week. Discharge planning more than 35 minutes, including discussion.
== END 2016-10-28 15:51 | disposition home health service (06) | DRG 391 ==
LOC: EC 16:12 → 4MS4W 20:55
PROVIDERS: ADMIT Hospitalist; ATTEND Hospitalist
PROC: 3E1M39Z Irrigation of Peritoneal Cavity using Dialysate, Percutaneous Approach (ICD-10-PCS; principal; 2016-10-26)
DX: A08.4 Viral intestinal infection, unspecified (principal); N18.6 End stage renal disease; I13.2 Hypertensive heart and chronic kidney disease with heart failure and with stage 5 chronic kidney disease, or end stage renal disease; J96.11 Chronic respiratory failure with hypoxia; I42.9 Cardiomyopathy, unspecified; N25.81 Secondary hyperparathyroidism of renal origin; E11.21 Type 2 diabetes mellitus with diabetic nephropathy; G25.81 Restless legs syndrome; I48.0 Paroxysmal atrial fibrillation; I50.22 Chronic systolic (congestive) heart failure; E11.42 Type 2 diabetes mellitus with diabetic polyneuropathy; E11.22 Type 2 diabetes mellitus with diabetic chronic kidney disease; D63.1 Anemia in chronic kidney disease; G47.30 Sleep apnea, unspecified; E78.5 Hyperlipidemia, unspecified; F40.240 Claustrophobia; F10.21 Alcohol dependence, in remission; G89.29 Other chronic pain; K21.9 Gastro-esophageal reflux disease without esophagitis; M81.0 Age-related osteoporosis without current pathological fracture; M19.90 Unspecified osteoarthritis, unspecified site; I49.3 Ventricular premature depolarization; J44.9 Chronic obstructive pulmonary disease, unspecified; Z99.2 Dependence on renal dialysis; Z16.24 Resistance to multiple antibiotics; Z99.81 Dependence on supplemental oxygen; Z87.442 Personal history of urinary calculi; Z90.49 Acquired absence of other specified parts of digestive tract; Z90.710 Acquired absence of both cervix and uterus; Z87.891 Personal history of nicotine dependence; Z88.7 Allergy status to serum and vaccine; Z95.810 Presence of automatic (implantable) cardiac defibrillator; Z86.73 Personal history of transient ischemic attack (TIA), and cerebral infarction without residual deficits; Z79.4 Long term (current) use of insulin; Z79.899 Other long term (current) drug therapy
CPT/HCPCS: 36415; 71020; 80048; 80053; 81001; 82150; 82550; 82553; 82728; 83036; 83540; 83550; 83690; 84100; 84484; 85025; 93005; 96361; 96374; 96375; 96376; 99285

== ENCOUNTER 2016-12-07 16:14 | Inpatient (IN) | payer MEDICARE, OTHER ==
[2016-12-07] MEDS ORDERED: IPRATROPIUM-ALBUTEROL 3 ML NEB INHALATION STA (16:32)
[2016-12-07] MEDS ORDERED: HYDROmorphone 1 MG/ML 1 ML SYRINGE IVP STA (16:39)
--- NOTE | 2016-12-07 16:39 | ED ---
General Adult HPI - General Chief complaint: Upper Respiratory Infection Stated complaint: cough Time Seen by Provider: 12/07/16 16:21 Source: family, EMS Mode of arrival: EMS Limitations: no limitations - History of Present Illness Initial comments: 61-year-old female presents with chief complaint of cough. Patient has insulin- dependent diabetes chronic renal failure on peritoneal dialysis history of atrial fibrillation coronary disease with the intake with a pacemaker defibrillator. She states the cough began yesterday she had a fever to almost 101. She is coughing up phlegm. Yellow. Pain with cough and deep breath. No diarrhea has dry heaves intermittently but this is not new. She has some no sore throat earache. Last dialysis was last night took an nebulized prior to calling the ambulance. - Related Data Home Medications Medication Instructions Recorded Confirmed Insulin Glargine,Hum.rec.anlog 20 unit SQ HS 08/12/15 12/07/16 [Lantus Solostar] Ferrous Sulfate [Iron (65 MG 325 mg PO AC-SUPPER 08/13/15 12/07/16 Elemental)] Ergocalciferol [Vitamin D2 50,000 unit PO TH 04/01/16 12/07/16 (DRISDOL)] Methimazole 5 mg PO DAILY 04/01/16 12/07/16 INSULIN LISPRO (humaLOG) [humaLOG See Protocol SQ AC-TID 05/10/16 12/07/16 (formulary)] Omeprazole [PriLOSEC] 20 mg PO DAILY PRN 05/10/16 12/07/16 Polyethylene Glycol 3350 [Miralax] 17 gm PO DAILY PRN 05/27/16 12/07/16 ALPRAZolam [Xanax] 1 mg PO HS 10/25/16 12/07/16 Albuterol Nebulized [Ventolin 2.5 mg INHALATION RT-QID 10/25/16 12/07/16 Nebulized] HYDROcodone/APAP 10-325MG [[place] 1 tab PO Q6H 10/25/16 12/07/16 10-325] Lidocaine 4% Cream [Lmx 4] 1 applic TOPICAL BID PRN 10/25/16 12/07/16 Folic Acid-Vit B Complex-Vit C 1 cap PO DAILY 12/07/16 12/07/16 [Nephrocaps] Previous Rx's Medication Instructions Recorded Torsemide [Demadex] 60 mg PO DAILY tab 08/20/15 Magnesium Oxide [Mag-Ox] 250 mg PO TID tab 08/25/16 Midodrine [ProAmatine] 5 mg PO DAILY #60 tab 10/25/16 Allergies Allergy/AdvReac Type Severity Reaction Status Date / Time ketorolac tromethamine Allergy Severe Rash/Hives Verified 12/07/16 17:11 [From Toradol] influenza virus vaccine, Allergy Intermediate Swelling Verified 12/07/16 17:11 specific [Influenza Virus Vacc,Specific] Review of Systems ROS Statement: Those systems with pertinent positive or pertinent negative responses have been documented in the HPI. ROS Other: All systems not noted in ROS Statement are negative. Constitutional: Reports: fever, weakness Eyes: Denies: eye pain ENT: Denies: ear pain, throat pain Respiratory: Reports: cough, dyspnea, wheezes Cardiovascular: Reports: chest pain Endocrine: Reports: fatigue Gastrointestinal: Reports: vomiting. Denies: diarrhea Genitourinary: Reports: other (On dialysis) Skin: Denies: rash Neurological: Denies: headache Psychiatric: Denies: anxiety, depression Hematological/Lymphatic: Denies: easy bleeding, easy bruising Past Medical History Past Medical History: Atrial Fibrillation, Chest Pain / Angina, Heart Failure, COPD, CVA/TIA, Deep Vein Thrombosis (DVT), GERD/Reflux, Hyperlipidemia, Hypertension, Memory Impairment, Renal Disease Additional Past Medical History / Comment(s): short term memory impairment;CHF- , UTI with sepsis-septic shock 10/2014; IDDM type II; back pain; neuropathy bilateral feet/legs; osteoporosis;DJD, fx sternum; blood clots/DVT, 2000 CVA with R sided weaknes, chronic kidney disease-peritoneal dialysis, 03/2016 L humerus fx, RLS, paroxysmal AFib, anemia multifactoral, cataracts bilaterally, anemia, rheumatic fever, urinary calculus , C Diff colitis, UTIs, UTI with sepsis/septic shock, chronic abdominal pain, falls. History of Any Multi-Drug Resistant Organisms: C-DIFF Date of last positivie culture/infection: 06/22/2016 MDRO Source:: stool- Cdiff Past Surgical History: Adenoidectomy, AICD, Bladder Surgery, Cholecystectomy, Heart Catheterization, Hysterectomy, Pacemaker, Tonsillectomy Additional Past Surgical History / Comment(s): AICD/pacer, colonoscopy with benign polyps removed, EGD with polyps removed from vocal cord; Benign R lung biopsy; bladder susp, peritoneal dialysis cath inserted , fecal transplant for cdiff 08/2016 at [facility] Past Anesthesia/Blood Transfusion Reactions: No Reported Reaction Additional Past Anesthesia/Blood Transfusion Reaction / Comment(s): Pt has clausterphobia-doesn't like to be in room with door closed . Pt has received blood in past without reaction. 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 She has a daughter who is very involved with her care. She has [facility] home care nurse and PT/OT. She NO LONGER DRIVES-HER DAUGHTER TAKES HER TO APPTS AND DOES SHOPPING. Pt uses a walker or cane to ambulate most of the time now. Pt has home o2 at 2.5L/NC ATC, a nebilizer, and hospital bed. 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 Adult daughter is very helpful with day- to-day activity and helping her with her CAPD. No animal exposures. No experience. No international travel Smoking Status: Former smoker Past Alcohol Use History: None Reported Additional Past Alcohol Use History / Comment(s): Pt startes smoking in 1965 and quit in 2011 Past Drug Use History: None Reported Additional Drug Use History / Comment(s): Pt has hx of alcoholism. She has not drank alcohol for 25 yrs. - Past Family History Sister(s) Family Medical History: Cancer Additional Family Medical History / Comment(s): SISTER IN HER MID 40'S OF [place] LYMPHOMA. Father Family Medical History: Congestive Heart Failure (CHF), COPD, Deep Vein Thrombosis (DVT) Additional Family Medical History / Comment(s): ETOH ABUSE. FATHER AT AGE 67 OF EMPHYSEMA AND CHF AND ETOH. Mother Family Medical History: Cancer Additional Family Medical History / Comment(s): MOTHER AT AGE 53 YRS OF LEUKEMIA. General Exam Limitations: no limitations General appearance: alert, in no apparent distress Head exam: Present: atraumatic Eye exam: Present: PERRL, EOMI ENT exam: Present: normal oropharynx, mucous membranes moist, TM's normal bilaterally Neck exam: Present: normal inspection. Absent: tenderness Respiratory exam: Present: wheezes. Absent: respiratory distress Cardiovascular Exam: Present: normal heart sounds GI/Abdominal exam: Present: soft. Absent: tenderness, guarding Neurological exam: Present: alert, CN II-XII intact Psychiatric exam: Present: normal affect, normal mood Skin exam: Present: warm, dry Course Vital Signs 12/07/16 12/07/16 12/07/16 16:16 16:56 17:10 Temperature 97.9 F Pulse Rate 104 H 108 H 112 H Respiratory 20 Rate Blood Pressure 94/61 O2 Sat by Pulse 96 Oximetry 12/07/16 12/07/16 12/07/16 18:00 18:43 19:00 Temperature Pulse Rate 104 H 95 92 Respiratory 18 20 18 Rate Blood Pressure 85/49 112/62 95/58 O2 Sat by Pulse 94 L 95 95 Oximetry Medical Decision Making - Medical Decision Making Spoke to Dr. Ko patient will be admitted would treat is a infective bronchitis with exacerbation COPD patient is chronically hypotensive with a borderline O2 saturation which is been chronic. - Lab Data Result diagrams: 12/07/16 16:35 12/07/16 16:35 Lab Results 12/07/16 12/07/16 12/07/16 Range/Units 16:35 16:35 16:35 WBC 6.0 (3.8-10.6) k/uL RBC 4.05 (3.80-5.40) m/uL Hgb 11.9 (11.4-16.0) gm/dL Hct 37.8 (34.0-46.0) % MCV 93.4 D (80.0-100.0) fL MCH 29.3 (25.0-35.0) pg MCHC 31.4 (31.0-37.0) g/dL RDW 14.1 (11.5-15.5) % Plt Count 104 L (150-450) k/uL Neutrophils % 64 % Lymphocytes % 24 % Monocytes % 5 % Eosinophils % 3 % Basophils % 1 % Neutrophils # 3.8 (1.3-7.7) k/uL Lymphocytes # 1.5 (1.0-4.8) k/uL Monocytes # 0.3 (0-1.0) k/uL Eosinophils # 0.2 (0-0.7) k/uL Basophils # 0.1 (0-0.2) k/uL Sodium 140 (137-145) mmol/L Potassium 4.5 (3.5-5.1) mmol/L Chloride 101 (98-107) mmol/L Carbon Dioxide 25 (22-30) mmol/L Anion Gap 14 mmol/L BUN 40 H (7-17) mg/dL Creatinine 7.70 H* (0.52-1.04) mg/dL Est GFR (MDRD) Af Amer 6 (>60 ml/min/1.73 sqM) Est GFR (MDRD) Non-Af 5 (>60 ml/min/1.73 sqM) Glucose 200 H (74-99) mg/dL Plasma Lactic Acid Edu 1.9 (0.7-2.0) mmol/L Calcium 7.4 L (8.4-10.2) mg/dL Total Bilirubin 0.4 (0.2-1.3) mg/dL AST 19 (14-36) U/L ALT 30 (9-52) U/L Alkaline Phosphatase 116 (38-126) U/L Total Protein 5.6 L (6.3-8.2) g/dL Albumin 2.9 L (3.5-5.0) g/dL Influenza Type A RNA (Not Detectd) Influenza Type B (PCR) (Not Detectd) 12/07/16 Range/Units 16:50 WBC (3.8-10.6) k/uL RBC (3.80-5.40) m/uL Hgb (11.4-16.0) gm/dL Hct (34.0-46.0) % MCV (80.0-100.0) fL MCH (25.0-35.0) pg MCHC (31.0-37.0) g/dL RDW (11.5-15.5) % Plt Count (150-450) k/uL Neutrophils % % Lymphocytes % % Monocytes % % Eosinophils % % Basophils % % Neutrophils # (1.3-7.7) k/uL Lymphocytes # (1.0-4.8) k/uL Monocytes # (0-1.0) k/uL Eosinophils # (0-0.7) k/uL Basophils # (0-0.2) k/uL Sodium (137-145) mmol/L Potassium (3.5-5.1) mmol/L Chloride (98-107) mmol/L Carbon Dioxide (22-30) mmol/L Anion Gap mmol/L BUN (7-17) mg/dL Creatinine (0.52-1.04) mg/dL Est GFR (MDRD) Af Amer (>60 ml/min/1.73 sqM) Est GFR (MDRD) Non-Af (>60 ml/min/1.73 sqM) Glucose (74-99) mg/dL Plasma Lactic Acid Edu (0.7-2.0) mmol/L Calcium (8.4-10.2) mg/dL Total Bilirubin (0.2-1.3) mg/dL AST (14-36) U/L ALT (9-52) U/L Alkaline Phosphatase (38-126) U/L Total Protein (6.3-8.2) g/dL Albumin (3.5-5.0) g/dL Influenza Type A RNA Not Detected (Not Detectd) Influenza Type B (PCR) Not Detected (Not Detectd) - EKG Data -: EKG Interpreted by Me 12/07/16 16:40 EKG 12/07/2016 1624 ventricular rate 105 bpm, DE interval 124 ms, QRS duration 120 ms QT interval 410 ms atrial sensed ventricular paced rhythm biventricular pacemaker detected Disposition Clinical Impression: COPD exacerbation, Acute bronchitis, Chronic renal failure, Chronic hypotension Disposition: ADMITTED IP TO THIS [facility] Time of Disposition: 19:07
[2016-12-07 17:10] LABS: Calcium 7.4 mg/dL (8.4-10.2); Potassium 4.5 mmol/L (3.5-5.1); Total Bilirubin 0.4 mg/dL (0.2-1.3); Total Protein 5.6 g/dL (6.3-8.2)
[2016-12-07 17:12] LABS: Basophils # (A) 0.1 k/uL (0-0.2); Basophils % (A) 1 %; CH 29.9; CHCM 32.1; Eosinophils # (A) 0.2 k/uL (0-0.7); Eosinophils % (A) 3 %; HCT 37.8 % (34.0-46.0); HDW 2.81; HGB 11.9 gm/dL (11.4-16.0); Luc # (Auto) 0.19; Luc % (Auto) 3; Lymphocytes # (A) 1.5 k/uL (1.0-4.8); Lymphocytes % (A) 24 %; MCH 29.3 pg (25.0-35.0); MCHC 31.4 g/dL (31.0-37.0); Mean Platelet Volume 7.6; Monocytes # (A) 0.3 k/uL (0-1.0); Monocytes % (A) 5 %; Neutrophils # (A) 3.8 k/uL (1.3-7.7); Neutrophils % (A) 64 %; RBC 4.05 m/uL (3.80-5.40); RDW 14.1 % (11.5-15.5); WBC (Perox) 6.42
[2016-12-07 17:15] LABS: MCV 93.4 fL (80.0-100.0)
--- NOTE | 2016-12-07 17:54 | XR ---
EXAMINATION TYPE: XR chest 2V DATE OF EXAM: 12/07/2016 5:38 PM COMPARISON: 10/25/2016 HISTORY: Shortness of breath TECHNIQUE: Frontal and lateral views of the chest are obtained. FINDINGS: Scattered senescent parenchymal changes noted. Hyperinflation compatible with COPD. No evidence for infiltrate. No evidence for atelectasis. Heart size is large. Mediastinal structures are stable and grossly unremarkable. No evidence for hilar prominence. Degenerative changes dorsal spine. IMPRESSION: 1. No evidence for acute pulmonary disease.
[2016-12-07] MEDS ORDERED: ACETAMINOPHEN TAB 325 MG TAB PO PRN (18:59)
[2016-12-07] MEDS ORDERED: NALOXONE 0.4 MG/ML 1 ML VIAL IV PRN (18:59)
[2016-12-07] MEDS ORDERED: LIDOCAINE 4% CREAM 5 GM TUBE TOPICAL PRN (19:02)
[2016-12-07] MEDS ORDERED: PANTOPRAZOLE 40 MG TABLET PO PRN (19:02)
[2016-12-07] MEDS ORDERED: POLYETHYLENE GLYCOL 3350 17 GM POWD.PACK PO PRN (19:02)
[2016-12-07] MEDS: SODIUM CHLORIDE 0.9% 1,000 ML IV SCH (19:11)
[2016-12-07] MEDS ORDERED: methylPREDNISolone SOD SUCCI 40 MG/ML 1 ML VIAL IV STA (19:13)
[2016-12-07] MEDS: HYDROcodone/APAP 10-325MG 1 EACH TAB PO SCH (19:22)
[2016-12-07 20:44] VITALS: BMI 27.3
[2016-12-07 21:03] LABS: Glucose,Whole Blood 145 mg/dL (75-99)
[2016-12-07] MEDS: ALPRAZolam 0.5 MG TAB PO SCH (21:07)
[2016-12-07] MEDS: MAGNESIUM OXIDE 400 MG TAB PO SCH (21:07)
[2016-12-07] MEDS: ALBUTEROL NEBULIZED 2.5 MG/3 ML INHALATION SCH (21:40)
[2016-12-07] MEDS: INSULIN GLARGINE 100 UNIT/ML 10 ML VIAL SQ SCH (22:06)
[2016-12-07] MEDS: INSULIN LISPRO (humaLOG) 300 UNIT/3 ML VIAL SQ SCH (22:06)
[2016-12-08] MEDS: DIALYSIS (PERITONEAL) DEX 2.5% 2,500 ML INTRAPERIT SCH ×5 (00:33→23:27)
[2016-12-08] MEDS: HYDROcodone/APAP 10-325MG 1 EACH TAB PO SCH ×4 (00:49→18:00)
[2016-12-08] MEDS: methylPREDNISolone SOD SUCCI 40 MG/ML 1 ML VIAL IV SCH ×3 (04:46→21:00)
[2016-12-08] MEDS: ALBUTEROL NEBULIZED 2.5 MG/3 ML INHALATION SCH ×4 (07:46→18:58)
[2016-12-08 08:05] LABS: Basophils % (A) 0 %; CH 29.4; CHCM 30.5; Eosinophils % (A) 0 %; HCT 34.9 % (34.0-46.0); HDW 2.71; HGB 10.7 gm/dL (11.4-16.0); Hypochromasia Moderate; Luc # (Auto) 0.08; Luc % (Auto) 2; Lymphocytes # (A) 0.7 k/uL (1.0-4.8); Lymphocytes % (A) 13 %; MCH 29.5 pg (25.0-35.0); MCHC 30.5 g/dL (31.0-37.0); MCV 96.7 fL (80.0-100.0); Mean Platelet Volume 8.2; Monocytes # (A) 0.1 k/uL (0-1.0); Monocytes % (A) 2 %; Neutrophils # (A) 4.1 k/uL (1.3-7.7); Neutrophils % (A) 83 %; RBC 3.61 m/uL (3.80-5.40); WBC (Perox) 5.12
[2016-12-08 08:05] LABS: Glucose,Whole Blood 422 mg/dL (75-99)
[2016-12-08] MEDS: INSULIN LISPRO (humaLOG) 300 UNIT/3 ML VIAL SQ SCH ×5 (08:23→21:02)
[2016-12-08] MEDS: MAGNESIUM OXIDE 400 MG TAB PO SCH ×3 (08:25→21:03)
[2016-12-08] MEDS: TORSEMIDE 20 MG TAB PO SCH (08:25)
[2016-12-08] MEDS: FOLIC ACID-VIT B COMPLEX-VIT C 1 CAP PO SCH (08:26)
[2016-12-08] MEDS: METHIMAZOLE 5 MG TAB PO SCH (08:26)
[2016-12-08 08:37] LABS: Calcium 7.2 mg/dL (8.4-10.2); Potassium 5.7 mmol/L (3.5-5.1)
[2016-12-08 09:31] LABS: Glucose,Whole Blood 410 mg/dL (75-99)
[2016-12-08] MEDS ORDERED: INSULIN NPH/REG INSULIN 70/30 300 UNIT/3 ML VIAL SQ ONE (10:13)
[2016-12-08 10:19] LABS: Hemoglobin A1C 7.3 % (4.2-6.1)
[2016-12-08 11:05] LABS: Glucose,Whole Blood 331 mg/dL (75-99)
--- NOTE | 2016-12-08 11:13 | P.NPCON ---
History of Present Illness - Reason for Consult end stage renal disease - History of Present Illness Reason for consultation: End-stage renal disease History of present illness: Patient is a 61-year-old female seen in renal consultation for end- stage renal disease. She is maintained on peritoneal dialysis. Patient presented with fever of 101F as well as a productive cough with green phlegm. Patient states his been going on for the last 2-3 days. She also admits to wheezing. Her appetite has been good. Denies any vomiting or diarrhea. Denies chest pain. No issues with peritoneal dialysis. Denies cloudy dialysate. No significant fluid overload. States edema has been getting better. Vital signs are stable. General: The patient appeared well nourished and normally developed. HEENT: Head exam is unremarkable. Neck is without jugular venous distension. LUNGS: Lungs are clear to auscultation and percussion. Breath sounds decreased. HEART: Rate and Rhythm are regular. First and second heart sounds normal. No murmurs, rubs or gallops. ABDOMEN: Abdominal exam reveals normal bowel sounds. Non-tender and non- distended. No evidence of peritonitis. EXTREMITITES: No clubbing, cyanosis, or edema. Past Medical History Past Medical History: Atrial Fibrillation, Chest Pain / Angina, Heart Failure, COPD, CVA/TIA, Deep Vein Thrombosis (DVT), GERD/Reflux, Hyperlipidemia, Hypertension, Memory Impairment, Renal Disease Additional Past Medical History / Comment(s): short term memory impairment;CHF- , UTI with sepsis-septic shock 10/2014; IDDM type II; back pain; neuropathy bilateral feet/legs; osteoporosis;DJD, fx sternum; blood clots/DVT, 2000 CVA with R sided weaknes, chronic kidney disease-peritoneal dialysis, 03/2016 L humerus fx, RLS, paroxysmal AFib, anemia multifactoral, cataracts bilaterally, anemia, rheumatic fever, urinary calculus , C Diff colitis, UTIs, UTI with sepsis/septic shock, chronic abdominal pain, falls. History of Any Multi-Drug Resistant Organisms: C-DIFF Date of last positivie culture/infection: 06/22/2016 MDRO Source:: stool- Cdiff Past Surgical History: Adenoidectomy, AICD, Bladder Surgery, Cholecystectomy, Hysterectomy, Pacemaker, Tonsillectomy Additional Past Surgical History / Comment(s): AICD/pacer, colonoscopy with benign polyps removed, EGD with polyps removed from vocal cord; Benign R lung biopsy; bladder susp, peritoneal dialysis cath inserted , fecal transplant for cdiff 08/2016 at [facility] Past Anesthesia/Blood Transfusion Reactions: No Reported Reaction Additional Past Anesthesia/Blood Transfusion Reaction / Comment(s): Pt has clausterphobia-doesn't like to be in room with door closed . Pt has received blood in past without reaction. Type of Cardiac Device: AICD Device Placement Date:: unknw Past Psychological History: No Psychological Hx Reported Additional Psychological History / Comment(s): PT LIVES AT HOME WITH HER HEARTH FEEDER OF 23 YEARS(GABINO). She has a daughter who is very involved with her care. She has [facility] home care nurse and PT/OT. She NO LONGER DRIVES-HER DAUGHTER TAKES HER TO APPTS AND DOES SHOPPING. Pt uses a walker or cane to ambulate most of the time now. Pt has home o2 at 2.5L/NC ATC, a nebilizer, and hospital bed. 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 Adult daughter is very helpful with day- to-day activity and helping her with her CAPD. No animal exposures. No experience. No international travel Smoking Status: Former smoker Past Alcohol Use History: None Reported Additional Past Alcohol Use History / Comment(s): Pt startes smoking in 1965 and quit in 2011 Past Drug Use History: None Reported Additional Drug Use History / Comment(s): Pt has hx of alcoholism. She has not drank alcohol for 25 yrs. - Past Family History Sister(s) Family Medical History: Cancer Additional Family Medical History / Comment(s): SISTER IN HER MID 40'S OF [place] LYMPHOMA. Father Family Medical History: Congestive Heart Failure (CHF), COPD, Deep Vein Thrombosis (DVT) Additional Family Medical History / Comment(s): ETOH ABUSE. FATHER AT AGE 67 OF EMPHYSEMA AND CHF AND ETOH. Mother Family Medical History: Cancer Additional Family Medical History / Comment(s): MOTHER AT AGE 53 YRS OF LEUKEMIA. Medications and Allergies Home Medications Medication Instructions Recorded Confirmed Type Insulin Glargine,Hum.rec.anlog 20 unit SQ HS 08/12/15 12/07/16 History [Lantus Solostar] Ferrous Sulfate [Iron (65 MG 325 mg PO AC-SUPPER 08/13/15 12/07/16 History Elemental)] Ergocalciferol [Vitamin D2 50,000 unit PO TH 04/01/16 12/07/16 History (DRISDOL)] Methimazole 5 mg PO DAILY 04/01/16 12/07/16 History INSULIN LISPRO (humaLOG) [humaLOG See Protocol SQ AC-TID 05/10/16 12/07/16 History (formulary)] Omeprazole [PriLOSEC] 20 mg PO DAILY PRN 05/10/16 12/07/16 History Polyethylene Glycol 3350 [Miralax] 17 gm PO DAILY PRN 05/27/16 12/07/16 History ALPRAZolam [Xanax] 1 mg PO HS 10/25/16 12/07/16 History Albuterol Nebulized [Ventolin 2.5 mg INHALATION RT-QID 10/25/16 12/07/16 History Nebulized] HYDROcodone/APAP 10-325MG [[place] 1 tab PO Q6H 10/25/16 12/07/16 History 10-325] Lidocaine 4% Cream [Lmx 4] 1 applic TOPICAL BID PRN 10/25/16 12/07/16 History Folic Acid-Vit B Complex-Vit C 1 cap PO DAILY 12/07/16 12/07/16 History [Nephrocaps] Allergies Allergy/AdvReac Type Severity Reaction Status Date / Time ketorolac tromethamine Allergy Severe Rash/Hives Verified 12/07/16 17:11 [From Toradol] influenza virus vaccine, Allergy Intermediate Swelling Verified 12/07/16 17:11 specific [Influenza Virus Vacc,Specific] Physical Exam Vitals: Vital Signs Temp Pulse Pulse Resp BP Pulse Ox 12/08/16 11:06 108 H 12/08/16 10:53 104 H 12/08/16 07:00 97.8 F 105 H 17 114/73 92 L 12/08/16 00:00 118 H 17 12/07/16 20:18 97.5 F L 118 H 17 104/67 93 L 12/07/16 19:22 18 95 Intake and Output 12/07/16 12/08/16 12/08/16 22:59 06:59 14:59 Intake Total 630 520 Output Total 2900 Balance 630 -2380 Intake: IV 80 280 Sodium Chloride 0.9% 1, 80 280 000 ml @ 40 mls/hr IV . Q24H [facility] Rx#:[id number] Amount of Fluid Infused ( 150 ml) Oral 400 240 Output: Other 2900 Other: Weight 70 kg 70 kg Results - Lab Results Most recent lab results Calcium 7.2 mg/dL (8.4-10.2) L 12/08/16 07:37 Phosphorus 5.3 mg/dL (2.5-4.5) H 12/08/16 07:37 12/08/16 07:37 12/08/16 07:37 Assessment and Plan Plan: Assessment: #1. End-stage renal disease maintained on peritoneal dialysis. #2. Acute bronchitis. #3. Anemia of chronic kidney disease. Hemoglobin at goal. #4. Chronic hypotension. Stable. #5. Insulin-dependent diabetes mellitus. #6. Hyperkalemia secondary to chronic kidney disease as well as hyperglycemia. Plan: Continue with 2.5 L 2.5% dextrose exchanges every 6 hours. Check phosphorus level. Nephrocaps daily. Follow-up cultures. Maintain low potassium diet. Tight blood sugar control. Thank you for the consultation. I will continue to follow the patient with you during her hospital stay.
[2016-12-08 12:02] LABS: Glucose,Whole Blood 299 mg/dL (75-99)
[2016-12-08] MEDS ORDERED: PIPERACILLIN-TAZOBACTAM 2.25 GM in DEXTROSE/WATER 1 50ML.BAG IVPB SCH (13:30)
[2016-12-08] MEDS: PIPERACILLIN-TAZOBACTAM 3.375 GM in DEXTROSE/WATER 1 50ML.BAG IVPB SCH (14:35)
[2016-12-08] MEDS: FERROUS SULFATE 325 MG TAB PO SCH (17:08)
[2016-12-08 17:48] LABS: Glucose,Whole Blood 126 mg/dL (75-99)
[2016-12-08] MEDS: SODIUM CHLORIDE 0.9% 1,000 ML IV SCH (18:01)
--- NOTE | 2016-12-08 19:18 | HP ---
DATE OF ADMISSION: 12/07/2016 PRESENTING COMPLAINT: Shortness of breath, cough. HISTORY OF PRESENTING COMPLAINT: This is a pleasant 61-year-old patient who has a rather extensive medical history. Patient's chronic stable medical conditions include end-stage kidney disease, on peritoneal dialysis, being followed by Dr. Renner, diabetes mellitus, type 2, on insulin, COPD, chronic respiratory failure, sleep apnea, peripheral nephropathy, secondary hyperparathyroidism. Patient also has chronic abdominal pain; has had multiple episodes of C difficile. She also had fecal transplant at [facility]. Patient presented with increasing shortness of breath, cough, sputum production, tired, rundown, with low-grade fever. Maintaining her appetite. Bowels are good. Sputum is yellow-green in color. Short of breath. Patient continues to get peritoneal dialysis. REVIEW OF SYSTEMS: CONSTITUTIONAL: Febrile, weak, tired. HEENT: None. RESPIRATORY: As above. CARDIOVASCULAR: None. GASTROINTESTINAL: Some abdominal distention. GENITOURINARY: None. MUSCULOSKELETAL: None. DERMATOLOGICAL: None. HEMATOLOGICAL: None. LYMPHATIC: None. PSYCHIATRY: Anxiety. NEUROLOGICAL: Peripheral neuropathy. PAST MEDICAL HISTORY: 1. Congestive heart failure; EF 20% to 25%; from nonischemic cardiomyopathy. 2. End-stage kidney disease, on peritoneal dialysis. 3. Diabetes mellitus, type 2. 4. COPD, on home oxygen. 5. Chronic hyperlipidemia. 6. Sleep apnea. 7. Restless leg syndrome. 8. Pacemaker. 9. 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 10. Secondary hyperparathyroidism. 11. Stroke with some residual right-sided weakness that actually has greatly improved. 12. Paroxysmal atrial fibrillation. 13. Anemia, multifactorial. 14. Urinary calculus. 15. 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 16. Chronic abdominal pain. PAST SURGICAL HISTORY: 1. Adenoidectomy. 2. AICD. 3. Bladder surgery. 4. Cholecystectomy. 5. Cardiac catheterization. 6. Hysterectomy. 7. Pacemaker. 8. Tonsillectomy. 9. Bladder suspension. PAST PSYCHIATRIC HISTORY: Claustrophobia. SOCIAL HISTORY: Patient has lived with her significant other, Jesse, for over 20 years. Has a cane and a walker. Home oxygen at 2.5 L. 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 Smoked from 1965 until 2011. Did drink excess alcohol in the past. HOME MEDICATIONS: 1. Demadex 60 mg p.o. daily. 2. MiraLax 17 grams p.o. daily p.r.n. 3. Prilosec 20 mg p.o. daily. 4. Midodrine 5 mg p.o. daily. 5. Methimazole 5 mg p.o. daily. 6. Magnesium oxide 250 mg p.o. t.i.d. 7. Lidocaine 4% topically b.i.d. 8. Lantus 20 units subcutaneously at bedtime. 9. Humalog per protocol before meals t.i.d. 10. [place] 10 one tablet q.6. 11. Nephrocaps 1 capsule p.o. daily. 12. Iron 65 mg at supper. 13. Vitamin D2, 50,000 units on . 14. Ventolin 2.5 q.i.d. 15. Xanax 1 mg p.o. at bedtime. ALLERGIES: 1. TORADOL. 2. INFLUENZA VACCINE. PHYSICAL EXAMINATION: VITAL SIGNS ON PRESENTATION: Temperature 95.9, pulse 109, respiration 21, blood pressure 94/61, pulse ox 96% on 2 L. Patient did have a fever at home. GENERAL APPEARANCE: Lying in bed. Tired-appearing. EYES: Pupils equal. Conjunctivae normal. HEENT: Oral cavity normal. NECK: JVD not raised. Mass not palpable. RESPIRATORY: Effort increased. LUNGS: Diminished breath sounds. CARDIOVASCULAR: First and second seconds are normal. Minimal edema. ABDOMEN: Distended, soft. Liver and spleen not palpable. PD catheter in place. LYMPHATIC: No lymph node palpable in neck or axillae. PSYCHIATRIC: Alert and oriented x3. Mood and affect normal. NEUROLOGICAL: Pupils equal. Cranial nerves grossly intact. Power and sensation grossly intact. Decreased sensation in the feet. INVESTIGATIONS: White count 5, hemoglobin 10.7, platelets 109. Potassium 5.7. BUN 43, creatinine 7.50. Glucose 459; repeat down to 299. Phosphorus 5.3. Chest x-ray shows some cardiomegaly, questionable infiltrate. ASSESSMENT: 1. Acute chronic obstructive pulmonary disease exacerbation in an ex-smoker. 2. Possible right basal pneumonia from Gram-negative organism. 3. Chronic congestive heart failure from systolic dysfunction; ejection fraction 20% to 25%. 4. End-stage kidney disease, on peritoneal dialysis. 5. Diabetes mellitus, type 2, causing peripheral neuropathy. 6. Chronic hypoxic respiratory failure, on home oxygen 2.5 liters. 7. Essential hypertension, chronic. 8. Hyperlipidemia. 9. Sleep apnea. 10. Restless leg syndrome. 11. Pacemaker. 12. Chronically thrombosed portal vein. 13. Secondary hyperthyroidism. 14. Paroxysmal atrial fibrillation. 15. Anemia, multifactorial, including renal failure. 16. Chronic functional abdominal pain. PLAN: Patient's home medications are resumed. Will add Zosyn, breathing treatments, ( ) and some IV Solu-Medrol. Care was discussed with Dr. Martínez and the patient. Peritoneal dialysis is to continue.
[2016-12-08 20:29] LABS: Glucose,Whole Blood 188 mg/dL (75-99)
--- NOTE | 2016-12-08 20:40 | CONS ---
DATE OF CONSULTATION: This patient's EMR and past medical records were reviewed. The patient is known to us from previous admission. Patient came to the emergency room with the complaint of cough and fever. Patient had a temperature of 101 at home. Patient had some yellowish sputum. Patient did have some shortness of breath. This patient has a history of nonischemic cardiomyopathy with severely impaired left ventricular systolic function as well as chronic renal failure. She is currently getting peritoneal dialysis. Patient has a history of AICD. Patient's AICD has not been checked for several months because she has not been to our office for some time. Home medications include: 1. Lantus insulin. 2. Ferrous sulfate. 3. Vitamin D2. 4. Methimazole. 5. Humalog protocol. 6. Miralax. 7. Xanax. 8. Folic acid. 9. Demadex. REVIEW OF SYSTEMS: Otherwise unremarkable. Past medical history includes: 1. History of recurrent urinary tract infection. 2. History of paroxysmal atrial fibrillation. 3. History of AICD placement. 4. History of refractory C difficile colitis, for which patient was treated recently at [facility]. 5. History of cholecystectomy. 6. Bladder surgery. 7. Prior history of cardiac catheterization. SMOKING HISTORY: Patient is a former smoker. Physical examination at present revealed a 61-year-old female who does not appear to be in any acute distress. Patient's temperature in the emergency room was 97.9. The heart rate is 112. Head/ENT examination is negative. Neck is supple. There no increase in jugular venous pressure. Both the carotid pulses are felt. There is no bruit. Chest is symmetrical. HEART: The PMI is not felt. First and second heart sounds are normal. Lung examination reveals bilateral diminished air entry. No other significant wheezing or rales are noted. Abdomen is soft. EXTREMITIES: There is no evidence of leg edema. Peripheral pulsations are not well felt. Patient's initial electrolytes were normal. Repeat potassium was 5.7. Creatinine is 7.5 Chest x-ray does not show any significant heart failure. Influenza screening was negative. EKG shows atrial sensed, ventricularly paced rhythm. FINAL IMPRESSION: 1. This patient is admitted with cough and shortness of breath, most likely acute bronchitis. There is no clear-cut evidence of any congestive cardiac failure. Patient does have evidence of sinus tachycardia. 2. History of nonischemic cardiomyopathy with severely impaired left ventricular systolic function. Patient needs to have her AICD checked. RECOMMENDATIONS: At present I recommend continuing the patient on the current medications. In view of the sinus tachycardia, I will start the patient on a small dose of beta rishabh.
[2016-12-08] MEDS: ALPRAZolam 0.5 MG TAB PO SCH (20:59)
[2016-12-08] MEDS: guaiFENesin-DM 100-10MG/5ML 10 ML CUP PO PRN (20:59)
[2016-12-08] MEDS: INSULIN GLARGINE 100 UNIT/ML 10 ML VIAL SQ SCH (22:10)
[2016-12-09] MEDS: HYDROcodone/APAP 10-325MG 1 EACH TAB PO SCH ×4 (01:21→17:09)
[2016-12-09] MEDS: methylPREDNISolone SOD SUCCI 40 MG/ML 1 ML VIAL IV SCH ×3 (04:37→22:21)
[2016-12-09] MEDS: DIALYSIS (PERITONEAL) DEX 2.5% 2,500 ML INTRAPERIT SCH ×3 (05:46→19:24)
[2016-12-09] MEDS: PIPERACILLIN-TAZOBACTAM 3.375 GM in DEXTROSE/WATER 1 50ML.BAG IVPB SCH ×2 (05:48→19:32)
[2016-12-09 06:03] LABS: Glucose,Whole Blood 270 mg/dL (75-99)
[2016-12-09] MEDS: ALBUTEROL NEBULIZED 2.5 MG/3 ML INHALATION SCH ×4 (08:00→19:01)
[2016-12-09] MEDS: INSULIN LISPRO (humaLOG) 300 UNIT/3 ML VIAL SQ SCH ×4 (09:36→21:53)
[2016-12-09] MEDS: MAGNESIUM OXIDE 400 MG TAB PO SCH ×3 (09:37→21:35)
[2016-12-09] MEDS: METHIMAZOLE 5 MG TAB PO SCH (09:39)
[2016-12-09] MEDS: METOPROLOL SUCCINATE (ER) 25 MG TAB.ER.24H PO SCH (09:40)
[2016-12-09] MEDS: TORSEMIDE 20 MG TAB PO SCH (09:40)
[2016-12-09] MEDS: FOLIC ACID-VIT B COMPLEX-VIT C 1 CAP PO SCH (09:40)
[2016-12-09] MEDS: guaiFENesin-DM 100-10MG/5ML 10 ML CUP PO PRN (09:47)
--- NOTE | 2016-12-09 10:47 | ECHOF ---
Referral Reason:chf MEASUREMENTS -------- HEIGHT: 160.0 cm WEIGHT: 69.8 kg BP: RVIDd: 4.3 cm (< 3.3) IVSd: 0.8 cm (0.6 - 1.1) LVIDd: 6.0 cm (3.9 - 5.3) LVPWd: 1.0 cm (0.6 - 1.1) IVSs: 1.0 cm LVIDs: 5.7 cm LVPWs: 1.1 cm LA Diam: 4.1 cm (2.7 - 3.8) LAESV Index (A-L): 29.57 ml/m Ao Diam: 2.8 cm (2.0 - 3.7) AV Cusp: 2.0 cm (1.5 - 2.6) LA Diam: 3.1 cm (2.7 - 3.8) MV EXCURSION: 10.716 mm (> 18.000) MV EF SLOPE: 41 mm/s (70 - 150) EPSS: 2.0 cm RAP: 5.00 mmHg RVSP: 49.86 mmHg FINDINGS -------- Paced rhythm. Pacerwire seen in RV and RA. This was a technically good study. The left ventricle is moderately dilated. Left ventricular wall thickness is normal. Overall left ventricular systolic function is severely impaired with, an EF < 20%. The right ventricle is severely enlarged. Normal LA size by volume 22+/-6 ml/m2. There is mild aortic valve sclerosis. The mitral valve leaflets are mildly thickened. Mild mitral annular calcification present. Anla-eh-boftoxhw mitral regurgitation is present. Dcbo-kr-cntxrhls tricuspid regurgitation present. There is moderate pulmonary hypertension. The right ventricular systolic pressure, as measured by Doppler, is 49.86mmHg. Trace/mild (physiologic) pulmonic regurgitation. The aortic root, ascending aorta and aortic arch are normal. Normal inferior vena cava with normal inspiratory collapse consistent with estimated right atrial pressure of 5 mmHg. There is no pericardial effusion. CONCLUSIONS -------- 1. Paced rhythm. 2. The mitral valve leaflets are mildly thickened. 3. Mild mitral annular calcification present. 4. Vxyf-yz-gcbhdwpn mitral regurgitation is present. 5. Gmmt-kp-pkzzujsx tricuspid regurgitation present. 6. There is moderate pulmonary hypertension. 7. The right ventricular systolic pressure, as measured by Doppler, is 49.86mmHg. 8. Trace/mild (physiologic) pulmonic regurgitation. 9. The aortic root, ascending aorta and aortic arch are normal. 10. There is no pericardial effusion. 11. Pacerwire seen in RV and RA. 12. This was a technically good study. 13. The left ventricle is moderately dilated. 14. Left ventricular wall thickness is normal. 15. Overall left ventricular systolic function is severely impaired with, an EF < 20%. 16. The right ventricle is severely enlarged. 17. Normal LA size by volume 22+/-6 ml/m2. 18. There is mild aortic valve sclerosis. CARPENTER MATE: Anabel Oneal RDCS
--- NOTE | 2016-12-09 11:25 | P.PN ---
Subjective Patient is seen in follow for end-stage renal disease. She is maintained on peritoneal dialysis. Patient presented with dyspnea and is currently being treated for pneumonia. Dyspnea is somewhat improved today. No vomiting or diarrhea. Appetite is fair. No issues with peritoneal dialysis. Vital signs are stable. General: The patient appeared well nourished and normally developed. HEENT: Head exam is unremarkable. Neck is without jugular venous distension. LUNGS: Lungs are clear to auscultation and percussion. Breath sounds decreased. HEART: Rate and Rhythm are regular. First and second heart sounds normal. No murmurs, rubs or gallops. ABDOMEN: Abdominal exam reveals normal bowel sounds. Non-tender and non- distended. No evidence of peritonitis. EXTREMITITES: No clubbing, cyanosis, or edema. Objective - Vital Signs Vital signs: Vital Signs Temp 98.2 F 12/09/16 07:00 Pulse 84 12/09/16 08:09 Resp 16 12/09/16 08:00 BP 110/69 12/09/16 07:00 Pulse Ox 95 12/09/16 07:00 Intake & Output 12/08/16 12/09/16 12/09/16 18:59 06:59 18:59 Intake Total 320 1362 Balance 320 1362 Weight 71.8 kg 71.8 kg Intake: IV 320 640 Sodium Chloride 0.9% 1, 320 640 000 ml @ 40 mls/hr IV . Q24H [facility] Rx#:[id number] Oral 722 Other: # Voids 0 0 - Labs CBC & Chem 7: 12/08/16 07:37 12/08/16 07:37 Labs: Abnormal Lab Results - Last 24 Hours (Table) 12/08/16 12/08/16 12/08/16 Range/Units 11:40 17:46 20:28 POC Glucose (mg/dL) 299 H 126 H 188 H (75-99) mg/dL 12/09/16 Range/Units 05:59 POC Glucose (mg/dL) 270 H (75-99) mg/dL Assessment and Plan Plan: Assessment: #1. End-stage renal disease maintained on peritoneal dialysis. #2. Acute bronchitis. #3. Anemia of chronic kidney disease. Hemoglobin at goal. #4. Chronic hypotension. Stable. #5. Insulin-dependent diabetes mellitus. #6. Hyperkalemia secondary to chronic kidney disease as well as hyperglycemia. #7. Hyperphosphatemia secondary to chronic kidney disease. Plan: Continue with 2.5 L 2.5% dextrose exchanges every 6 hours. Start PhosLo 3 times daily with meals. Nephrocaps daily. Follow-up cultures. Maintain low potassium diet. Tight blood sugar control.
[2016-12-09 12:33] LABS: Glucose,Whole Blood 333 mg/dL (75-99)
[2016-12-09] MEDS: CALCIUM ACETATE 667 MG CAP PO SCH ×2 (13:13→17:07)
--- NOTE | 2016-12-09 17:03 | PN ---
This patient has a history of nonischemic cardiomyopathy. Patient also has end-stage renal disease. Patient is admitted with cough and shortness of breath and possibly acute bronchitis. Patient's echocardiogram reveals severely impaired left ventricular systolic function, which is unchanged from before. Her IVC is not dilated and there is no evidence of any significant elevation in the left atrial pressure. Patient's vital signs are stable. Patient remains afebrile. Blood pressure is 110/69 mmHg. First and second heart sounds are normal. Lungs are fairly clear to auscultation and percussion. IMPRESSION: Patient is stable cardiac-samayoa at present. There is no evidence of any overt left ventricular failure. Continue the current medications.
[2016-12-09] MEDS: FERROUS SULFATE 325 MG TAB PO SCH (17:07)
--- NOTE | 2016-12-09 17:11 | PN ---
DATE OF SERVICE: 12/09/2016 PRESENTING COMPLAINT: Short of breath, cough. INTERVAL HISTORY: This is a patient admitted with possible right basal pneumonia, COPD exacerbation. Breathing is getting better ( ). Did tolerate some diet. Feeling tired. Review of systems done for constitutional, cardiovascular, GI, pulmonary; relevant findings as above. Current medications are reviewed and include IV Zosyn. On examination, temperature 98.2, pulse 99, respiration 16, blood pressure 110/69, pulse ox 95% on 4 L. GENERAL APPEARANCE: Lying in bed, tired-appearing. EYES: Pupils equal. Conjunctivae normal. NECK: JVD not raised. Mass not palpable. RESPIRATORY: Effort increased. LUNGS: Diminished breath sounds. CARDIOVASCULAR: First and second sounds normal. No edema. ABDOMEN: Distended, soft. Liver and spleen not palpable. PSYCHIATRY: Alert and oriented x3. Mood and affect normal. INVESTIGATIONS: Accu-Cheks are noted. ASSESSMENT: 1. Acute chronic obstructive pulmonary disease exacerbation in an ex-smoker, slowly improving. 2. Possible right basal pneumonia from Gram-negative organism, present on admission, improving. 3. Chronic congestive heart failure from systolic dysfunction; ejection fraction 20% to 25%. 4. End-stage kidney disease, on peritoneal dialysis. 5. Diabetes mellitus, type 2, causing peripheral neuropathy. 6. Chronic hypoxic respiratory failure, on home oxygen 2.5 liters. 7. Essential hypertension. 8. Hyperlipidemia. 9. Sleep apnea. 10. Restless leg syndrome. 11. Pacemaker. 12. Chronically thrombosed portal vein. 13. Secondary hyperthyroidism. 14. Paroxysmal atrial fibrillation. 15. Anemia, multifactorial, from renal failure. 16. Chronic functional abdominal pain. PLAN: Continue current medication and treatment plan. Patient overall looks to be doing better. Diet is to be advanced. Care was discussed with the patient.
[2016-12-09 17:27] LABS: Glucose,Whole Blood 293 mg/dL (75-99)
[2016-12-09 20:27] LABS: Glucose,Whole Blood 357 mg/dL (75-99)
[2016-12-09 20:27] LABS: Glucose,Whole Blood 362 mg/dL (75-99)
[2016-12-09] MEDS: ALPRAZolam 0.5 MG TAB PO SCH (21:35)
[2016-12-09] MEDS: INSULIN GLARGINE 100 UNIT/ML 10 ML VIAL SQ SCH (21:53)
[2016-12-10] MEDS: HYDROcodone/APAP 10-325MG 1 EACH TAB PO SCH ×5 (00:08→23:46)
[2016-12-10 00:32] LABS: Glucose,Whole Blood 315 mg/dL (75-99)
[2016-12-10] MEDS: DIALYSIS (PERITONEAL) DEX 2.5% 2,500 ML INTRAPERIT SCH ×2 (00:54→05:47)
[2016-12-10] MEDS: guaiFENesin-DM 100-10MG/5ML 10 ML CUP PO PRN ×2 (01:02→08:40)
[2016-12-10] MEDS: methylPREDNISolone SOD SUCCI 40 MG/ML 1 ML VIAL IV SCH ×2 (05:01→12:36)
[2016-12-10] MEDS: PIPERACILLIN-TAZOBACTAM 3.375 GM in DEXTROSE/WATER 1 50ML.BAG IVPB SCH ×2 (05:57→17:26)
[2016-12-10 07:50] LABS: Glucose,Whole Blood 354 mg/dL (75-99)
[2016-12-10] MEDS: CALCIUM ACETATE 667 MG CAP PO SCH ×3 (08:05→17:09)
[2016-12-10] MEDS: TORSEMIDE 20 MG TAB PO SCH (08:05)
[2016-12-10] MEDS: METOPROLOL SUCCINATE (ER) 25 MG TAB.ER.24H PO SCH (08:05)
[2016-12-10] MEDS: MAGNESIUM OXIDE 400 MG TAB PO SCH ×3 (08:05→21:13)
[2016-12-10] MEDS: FOLIC ACID-VIT B COMPLEX-VIT C 1 CAP PO SCH (08:06)
[2016-12-10] MEDS: ALBUTEROL NEBULIZED 2.5 MG/3 ML INHALATION SCH ×4 (08:08→19:52)
[2016-12-10] MEDS: INSULIN LISPRO (humaLOG) 300 UNIT/3 ML VIAL SQ SCH ×4 (08:08→20:37)
[2016-12-10 08:25] LABS: Calcium 8.7 mg/dL (8.4-10.2); Potassium 5.6 mmol/L (3.5-5.1)
[2016-12-10] MEDS: METHIMAZOLE 5 MG TAB PO SCH (08:40)
[2016-12-10 11:17] LABS: Glucose,Whole Blood 380 mg/dL (75-99)
[2016-12-10] MEDS: DIALYSIS (PERITONL) DEX 4.25% 2,500 ML INTRAPERIT SCH ×4 (12:36→23:25)
[2016-12-10] MEDS: FERROUS SULFATE 325 MG TAB PO SCH (17:09)
[2016-12-10 17:19] LABS: Glucose,Whole Blood 307 mg/dL (75-99)
[2016-12-10 20:03] LABS: Glucose,Whole Blood 391 mg/dL (75-99)
--- NOTE | 2016-12-10 20:09 | PN ---
Patient is seen for followup for end-stage renal disease. She is complaining of significant abdominal distention and abdominal pain. Patient is currently maintained on 2.5% exchanges and has not had much ultrafiltration. On examination, blood pressure is 100/59, heart rate 98 per minute. She is afebrile. EXAMINATION OF THE HEART: S1 and S2. EXAMINATION OF LUNGS: Decreased breath sounds in the bases. ABDOMEN: Soft, distended, not significantly tender. Examination of lower extremities shows trace edema. Labs show sodium 136, potassium 5.6; BUN 51, serum creatinine 6.7. ASSESSMENT: 1. End-stage renal disease, on peritoneal dialysis. Will increase exchanges to 4.25% solution q.4 hours. 2. Volume overload. Patient mainly carries her extra fluid in her belly and lungs. We will try to increase UF with dialysis. 3. Mild hyperkalemia, currently stable. Patient should be maintained on low-potassium diet. 4. Chronic kidney disease bone mineral disorder, maintained on PhosLo. 5. Hyperthyroidism, currently on Tapazole. PLAN: Continue with Demadex. Will increase PD exchanges to 4.25% solutions q.4 hours.
[2016-12-10] MEDS ORDERED: INSULIN NPH/REG INSULIN 70/30 300 UNIT/3 ML VIAL SQ ONE (20:13)
[2016-12-10] MEDS: ALPRAZolam 0.5 MG TAB PO SCH (20:23)
[2016-12-10] MEDS: AMOXIC-POT CLAV 500-125 MG 1 EACH TAB PO SCH (20:26)
[2016-12-10] MEDS: INSULIN GLARGINE 100 UNIT/ML 10 ML VIAL SQ SCH (20:37)
[2016-12-11 00:19] LABS: Glucose,Whole Blood 373 mg/dL (75-99)
[2016-12-11] MEDS: DIALYSIS (PERITONL) DEX 4.25% 2,500 ML INTRAPERIT SCH ×6 (03:33→23:45)
--- NOTE | 2016-12-11 05:54 | PN ---
DATE OF SERVICE: 12/10/2016 PRESENTING COMPLAINT: Short of breath, cough. INTERVAL HISTORY: This patient presented with possible right basal pneumonia. Breathing is getting better. Less wheezing, tolerating her diet. Abdomen is still rather distended. Dr. Renner today changed the dialysate fluid. There seems to be ( ) of the same. Review of systems done for constitutional, cardiovascular, GI, pulmonary; relevant findings as above. Current medications are reviewed that include IV Zosyn. On examination, temperature 98, pulse 80, respirations 18, blood pressure 102/74, pulse ox 93% on 2 L. GENERAL APPEARANCE: Lying in bed, tired appearing. EYES: Pupils equal. Conjunctivae normal. NECK: JVD not raised. Mass not palpable. RESPIRATORY: Effort increased. LUNGS: Diminished breath sounds. CARDIOVASCULAR: First and second sounds normal. No edema. ABDOMEN: Distended, soft. Liver and spleen not palpable. PSYCHIATRY: Alert and oriented x3. Mood and affect slightly low. INVESTIGATIONS: Potassium 5.6, BUN 51, creatinine 6.70. Accu-Cheks are noted, running high. ASSESSMENT: 1. Acute chronic obstructive pulmonary disease exacerbation in an ex-smoker. 2. Possible right basal pneumonia from gram-negative organism present on admission, improving. 3. Chronic congestive heart failure from systolic dysfunction, ejection fraction 20% to 25%. 4. End-stage kidney disease on peritoneal dialysis with some ( ) retention in the belly. 5. Diabetes mellitus, type 2, causing peripheral neuropathy. 6. Chronic hypoxic respiratory failure, on home oxygen 2.5 L. 7. Essential hypertension. 8. Hyperlipidemia. 9. Sleep apnea. 10. Restless leg syndrome. 11. Pacemaker. 12. Chronically thrombosed portal vein. 13. Secondary ( ) bone disease. 14. Paroxysmal atrial fibrillation. 15. Anemia, multifactorial from renal disease. 16. Chronic functional abdominal pain. PLAN: I discussed the care with Dr. Renner. The dialysate fluid is being changed. She is getting now 4.25 dextrose . Will discontinue the Solu-Medrol, switch to oral antibiotic.
[2016-12-11] MEDS: HYDROcodone/APAP 10-325MG 1 EACH TAB PO SCH ×3 (06:03→17:59)
[2016-12-11 07:20] LABS: Glucose,Whole Blood 421 mg/dL (75-99)
[2016-12-11] MEDS: ALBUTEROL NEBULIZED 2.5 MG/3 ML INHALATION SCH ×4 (07:46→19:52)
[2016-12-11] MEDS: INSULIN LISPRO (humaLOG) 300 UNIT/3 ML VIAL SQ SCH ×4 (07:50→21:02)
[2016-12-11 08:04] VITALS: RESP 16
[2016-12-11] MEDS ORDERED: ERGOCALCIFEROL 50,000 UNIT CAP PO SCH (09:00)
[2016-12-11] MEDS: METHIMAZOLE 5 MG TAB PO SCH (10:12)
[2016-12-11] MEDS: MAGNESIUM OXIDE 400 MG TAB PO SCH ×3 (10:12→21:02)
[2016-12-11] MEDS: TORSEMIDE 20 MG TAB PO SCH (10:12)
[2016-12-11] MEDS: METOPROLOL SUCCINATE (ER) 25 MG TAB.ER.24H PO SCH (10:12)
[2016-12-11] MEDS: FOLIC ACID-VIT B COMPLEX-VIT C 1 CAP PO SCH (10:12)
[2016-12-11] MEDS: CALCIUM ACETATE 667 MG CAP PO SCH ×3 (10:13→17:59)
[2016-12-11 11:09] LABS: Calcium 8.9 mg/dL (8.4-10.2); Potassium 3.9 mmol/L (3.5-5.1); Total Bilirubin 0.6 mg/dL (0.2-1.3); Total Protein 5.7 g/dL (6.3-8.2)
[2016-12-11 11:43] LABS: Glucose,Whole Blood 159 mg/dL (75-99)
--- NOTE | 2016-12-11 13:54 | PN ---
Patient is seen for followup for end-stage renal disease. She is complaining of significant abdominal distention and abdominal pain yesterday. She was volume overloaded and I increase her exchanges to 4.25% solution q.4 hours. She is currently getting much better ultrafiltrations and patient's abdominal pain and distention has improved but she has also been short of breath. However, her blood sugars are running high. She has not been started on insulin drip yet. Her regular dose of insulin has been increased. On examination, blood pressure is 118/70, heart rate 83 per minute. She is afebrile. Examination shows edema 1+ in the lower extremities with chronic skin changes. Currently, patient is in the bathroom, therefore her lungs are not heard. Abdomen seems less distended. Labs show potassium 3.9, sodium 140, albumin is 3.0. ASSESSMENT: 1. End-stage renal disease, maintained on peritoneal dialysis. Continue with the to 4.25% solution q.4 hours for now. Will decrease to q.6 hours starting midnight. 2. Volume overload, slowly improving. Weight is down from yesterday by about 0.5 kg if this is accurate. 3. Diabetes with high blood sugars, the sliding scale will be adjusted and her regular dose of insulin has also been increased. PLAN: Decrease ( ) exchanges to q.6 hours starting midnight and hopefully the blood sugars will improve as well. Increase insulin as needed.
[2016-12-11 17:31] LABS: Glucose,Whole Blood 203 mg/dL (75-99)
[2016-12-11] MEDS: FERROUS SULFATE 325 MG TAB PO SCH (17:59)
[2016-12-11 21:00] LABS: Glucose,Whole Blood 284 mg/dL (75-99)
[2016-12-11] MEDS: AMOXIC-POT CLAV 500-125 MG 1 EACH TAB PO SCH (21:01)
[2016-12-11] MEDS: ALPRAZolam 0.5 MG TAB PO SCH (21:01)
[2016-12-11] MEDS: INSULIN GLARGINE 100 UNIT/ML 10 ML VIAL SQ SCH (21:02)
[2016-12-11] MEDS: guaiFENesin-DM 100-10MG/5ML 10 ML CUP PO PRN (21:23)
[2016-12-12] MEDS: HYDROcodone/APAP 10-325MG 1 EACH TAB PO SCH ×3 (00:27→12:26)
[2016-12-12] MEDS: DIALYSIS (PERITONL) DEX 4.25% 2,500 ML INTRAPERIT SCH ×2 (05:25→12:51)
--- NOTE | 2016-12-12 07:06 | PN ---
DATE OF SERVICE: 12/11/2016 PRESENTING COMPLAINT: Short of breath. INTERVAL HISTORY: This patient presented with possible right pneumonia, responded well to antibiotics. Breathing has actually gotten better. Patient is ( ) her peritoneal dialysate fluid that is being changed by Dr. Renner. Abdomen is still distended. No bowel movement. Did tolerate her diet. Lying in bed, tired. Review of systems done for constitutional, cardiovascular, GI, pulmonary; relevant findings as above. Current medications are reviewed that include Augmentin. On examination, temperature 97.1, pulse 86, respirations 16, blood pressure 111/71, pulse ox 97% on 2 L. GENERAL APPEARANCE: Lying in bed, tired appearing. EYES: Pupils equal. Conjunctivae normal. NECK: JVD not raised. Mass palpable. RESPIRATORY: Effort normal. LUNGS: Decreased breath sounds. CARDIOVASCULAR: First and second sounds normal. No edema. ABDOMEN: Distended, soft. Liver and spleen not palpable. PSYCHIATRY: Alert and oriented x3. Mood and affect a bit low. INVESTIGATIONS: Potassium 3.9. BUN 49, creatinine 6.35. Accu-Cheks are noted. ASSESSMENT: 1. Acute chronic obstructive pulmonary disease exacerbation in an ex-smoker. 2. Possible right basal pneumonia suspect gram-negative organism, present admission, improving. 3. Chronic congestive heart failure from systolic dysfunction; ejection fraction 20% to 25%. 4. End-stage kidney disease on peritoneal dialysis with retention of dialysate fluid. 5. Diabetes mellitus type 2 causing peripheral neuropathy. 6. Chronic hypoxic respiratory failure on home oxygen 2.5 L. 7. Essential hypertension. 8. Hyperlipidemia. 9. Sleep apnea. 10. Restless leg syndrome. 11. Pacemaker. 12. Chronically thrombosed portal vein. 13. Secondary hyperparathyroidism/renal bone disease. 14. Paroxysmal atrial fibrillation. 15. Anemia, multifactorial from renal disease. 16. Chronic functional abdominal pain. PLAN: At this point, continue current medication and treatment plan. Dialysate fluid is being changed as per Dr. Renner. Patient's oral antibiotics will be discontinued after today.
[2016-12-12 07:39] LABS: Glucose,Whole Blood 171 mg/dL (75-99)
[2016-12-12] MEDS: TORSEMIDE 20 MG TAB PO SCH (08:13)
[2016-12-12] MEDS: METHIMAZOLE 5 MG TAB PO SCH (08:13)
[2016-12-12] MEDS: FOLIC ACID-VIT B COMPLEX-VIT C 1 CAP PO SCH (08:13)
[2016-12-12] MEDS: METOPROLOL SUCCINATE (ER) 25 MG TAB.ER.24H PO SCH (08:13)
[2016-12-12] MEDS: CALCIUM ACETATE 667 MG CAP PO SCH ×2 (08:14→12:51)
[2016-12-12] MEDS: MAGNESIUM OXIDE 400 MG TAB PO SCH (08:14)
[2016-12-12] MEDS: INSULIN LISPRO (humaLOG) 300 UNIT/3 ML VIAL SQ SCH ×2 (08:15→12:14)
[2016-12-12] MEDS: ALBUTEROL NEBULIZED 2.5 MG/3 ML INHALATION SCH ×2 (08:58→13:21)
[2016-12-12 11:43] LABS: Glucose,Whole Blood 109 mg/dL (75-99)
[2016-12-12 12:40] VITALS: BP 93/64; TEMP 97.6
[2016-12-12 13:24] VITALS: PULSE 86
--- NOTE | 2016-12-12 21:20 | PN ---
Patient is seen for follow-up for end-stage renal disease. She was volume overloaded and has been maintained on 4.25% exchanges initially every four hours yesterday and then decreased to q.6 hours. Patient continues to have good UF. Her volume status has improved. She states overall she is feeling better so she will be discharged. On examination, blood pressure is 93/64, heart rate 82 per minute. She is afebrile. Examination shows decreased abdominal distention. No abdominal tenderness noted. Examination of the lower extremities shows 1+ edema with chronic skin changes bilaterally. ASSESSMENT: 1. End-stage renal disease, on peritoneal dialysis. Patient can be discharged from nephrology standpoint. We will continue with the 4.25% exchanges and follow up as outpatient. 2. Volume overload, currently significantly improved. 3. Hyperglycemia now much better controlled with higher dose insulin coverage for sliding scale. 4. Severe cardiomyopathy. PLAN: Okay to discharge patient. Will follow up as outpatient.
--- NOTE | 2016-12-13 09:20 | DS ---
DATE OF ADMISSION: 12/07/2016 DATE OF DISCHARGE: 12/12/2016 FINAL DIAGNOSIS(ES): 1. Acute chronic obstructive pulmonary disease exacerbation in an ex-smoker, present at admission. 2. Possible right basal pneumonia, suspect gram-negative organism, present on admission. 3. Chronic congestive heart failure from systolic dysfunction; ejection fraction of 20-25%. 4. End-stage kidney disease on peritoneal dialysis retention of the dialysis fluid/ineffective peritoneal dialysis. 5. Diabetes mellitus type 2, causing peripheral neuropathy. 6. Chronic hypoxic respiratory failure on home oxygen 2.5 liters. 7. Essential hypertension. 8. Hyperlipidemia. 9. Sleep apnea. 10. Restless leg syndrome. 11. Pacemaker. 12. Chronically thrombosed portal vein. 13. Secondary hyperparathyroidism renal bone disease. 14. Paroxysmal atrial fibrillation. 15. Anemia, multifactorial from renal disease. 16. Chronic functional abdominal pain. HOSPITAL COURSE: This patient presented with cough, shortness of breath, abdominal distention, felt to have pneumonia and right lower lobe treated with a course of antibiotics. Also was retaining fluid in the belly. Dialysis fluid was changed. Doing much better at the time of discharge. Tolerating a diet. Afebrile, had a bowel movement. On examination: ABDOMEN: Soft, nontender. LUNGS: Air entry. DISCHARGE MEDICATIONS: 1. Lantus 20 units subcu q.h.s. 2. Iron 325 p.o. with supper. 3. Demadex 60 mg p.o. daily. 4. Drisdol 50,000 units on . 5. Methimazole 5 mg p.o. daily. 6. Humalog per protocol before meals t.i.d. 7. Prilosec 20 mg p.o. daily p.r.n. 8. MiraLax 17 grams p.o. daily p.r.n. 9. Magnesium oxide 250 mg p.o. t.i.d. 10. Xanax 1 mg p.o. q.h.s. 11. Ventolin 2.5 mg q.i.d. 12. [place] 10, 1 tablet q.6. 13. Lidocaine 4% topical b.i.d. p.r.n. 14. Midodrine 5 mg p.o. daily. 15. Nephrocaps 1 capsule p.o. daily. 16. PhosLo 3 times a day with meals. 17. Toprol-XL 12.5 mg p.o. q.h.s. Follow-up with Dr. Kothari in one week. Follow with nephrology as scheduled. Peritoneal dialysis by Dr. Renner.
== END 2016-12-12 15:15 | disposition home health service (06) | DRG 190 ==
LOC: EC 16:14 → 5MS5E 19:09
PROVIDERS: ADMIT Hospitalist; ATTEND Hospitalist
PROC: 3E1M39Z Irrigation of Peritoneal Cavity using Dialysate, Percutaneous Approach (ICD-10-PCS; principal; 2016-12-08)
DX: J44.0 Chronic obstructive pulmonary disease with (acute) lower respiratory infection (principal); J15.6 Pneumonia due to other Gram-negative bacteria; I81 Portal vein thrombosis; I13.2 Hypertensive heart and chronic kidney disease with heart failure and with stage 5 chronic kidney disease, or end stage renal disease; J96.11 Chronic respiratory failure with hypoxia; I42.9 Cardiomyopathy, unspecified; N25.81 Secondary hyperparathyroidism of renal origin; N18.6 End stage renal disease; I69.351 Hemiplegia and hemiparesis following cerebral infarction affecting right dominant side; I50.22 Chronic systolic (congestive) heart failure; I95.89 Other hypotension; E11.42 Type 2 diabetes mellitus with diabetic polyneuropathy; E11.22 Type 2 diabetes mellitus with diabetic chronic kidney disease; E87.5 Hyperkalemia; E83.39 Other disorders of phosphorus metabolism; E05.90 Thyrotoxicosis, unspecified without thyrotoxic crisis or storm; E11.65 Type 2 diabetes mellitus with hyperglycemia; J44.1 Chronic obstructive pulmonary disease with (acute) exacerbation; G47.30 Sleep apnea, unspecified; E78.5 Hyperlipidemia, unspecified; I48.0 Paroxysmal atrial fibrillation; F40.240 Claustrophobia; G25.81 Restless legs syndrome; M81.0 Age-related osteoporosis without current pathological fracture; F10.21 Alcohol dependence, in remission; J20.9 Acute bronchitis, unspecified; D63.1 Anemia in chronic kidney disease; G89.29 Other chronic pain; H26.9 Unspecified cataract; K21.9 Gastro-esophageal reflux disease without esophagitis; M19.90 Unspecified osteoarthritis, unspecified site; R10.9 Unspecified abdominal pain; Z82.5 Family history of asthma and other chronic lower respiratory diseases; Z99.81 Dependence on supplemental oxygen; Z99.2 Dependence on renal dialysis; Z95.810 Presence of automatic (implantable) cardiac defibrillator; Z90.49 Acquired absence of other specified parts of digestive tract; Z90.710 Acquired absence of both cervix and uterus; Z87.891 Personal history of nicotine dependence; Z87.442 Personal history of urinary calculi; Z87.440 Personal history of urinary (tract) infections; Z79.4 Long term (current) use of insulin; Z79.891 Long term (current) use of opiate analgesic; Z79.899 Other long term (current) drug therapy
CPT/HCPCS: 36415; 71020; 80048; 80053; 83036; 83605; 84100; 85025; 87040; 87070; 87205; 87502; 90935; 93005; 93306; 94640; 94760; 96365; 96375; 99285

== ENCOUNTER 2016-12-26 15:07 | Inpatient (IN) | payer MEDICARE, OTHER ==
[2016-12-26] MEDS ORDERED: SODIUM CHLORIDE 0.9% 1,000 ML IV STA (16:47)
--- NOTE | 2016-12-26 16:54 | ED ---
General Adult HPI - General Chief complaint: Extremity Problem,Nontraumatic Stated complaint: EDEMA Time Seen by Provider: 12/26/16 15:55 Source: patient, EMS, RN notes reviewed, old records reviewed Mode of arrival: EMS Limitations: no limitations - History of Present Illness Initial comments: Chief complaint and history of present illness is a 61-year-old female with multiple medical problems. She was in hospital several weeks ago with similar problems at that time she was having fluid retention. She has for the past 13 months been doing. She is doing peritoneal dialysis at night. She reports the past 3 weeks she's gained proximally 6 pounds. She states she is not taking off as much fluid as she needs to. Not urinating. But she also states she's not been urinating for a long time. Complaining of shortness of breath with a past history of CHF. Also pain to her feet. She is noted since last night she' s had vasculitis to both lower extremities. - Related Data Home Medications Medication Instructions Recorded Confirmed Insulin Glargine,Hum.rec.anlog 20 unit SQ HS 08/12/15 12/26/16 [Lantus Solostar] Ferrous Sulfate [Iron (65 MG 325 mg PO AC-SUPPER 08/13/15 12/26/16 Elemental)] Ergocalciferol [Vitamin D2 50,000 unit PO TH 04/01/16 12/26/16 (DRISDOL)] Methimazole 5 mg PO DAILY 04/01/16 12/26/16 Omeprazole [PriLOSEC] 20 mg PO DAILY PRN 05/10/16 12/26/16 ALPRAZolam [Xanax] 1 mg PO HS 10/25/16 12/26/16 Albuterol Nebulized [Ventolin 2.5 mg INHALATION RT-QID 10/25/16 12/26/16 Nebulized] HYDROcodone/APAP 10-325MG [[place] 1 tab PO Q6H 10/25/16 12/26/16 10-325] Lidocaine 4% Cream [Lmx 4] 1 applic TOPICAL BID PRN 10/25/16 12/26/16 Folic Acid-Vit B Complex-Vit C 1 cap PO DAILY 12/07/16 12/26/16 [Nephrocaps] Previous Rx's Medication Instructions Recorded Torsemide [Demadex] 60 mg PO DAILY tab 08/20/15 Magnesium Oxide [Mag-Ox] 250 mg PO TID tab 08/25/16 Midodrine [ProAmatine] 5 mg PO DAILY #60 tab 10/25/16 Calcium Acetate [PhosLo] 667 mg PO TID-W/MEALS #90 cap 12/12/16 Metoprolol Succinate (ER) [Toprol 12.5 mg PO HS #30 tab.er.24h 12/12/16 XL] Allergies Allergy/AdvReac Type Severity Reaction Status Date / Time ketorolac tromethamine Allergy Severe Rash/Hives Verified 12/26/16 15:52 [From Toradol] influenza virus vaccine, Allergy Intermediate Swelling Verified 12/26/16 15:52 specific [Influenza Virus Vacc,Specific] Review of Systems ROS Statement: Those systems with pertinent positive or pertinent negative responses have been documented in the HPI. Review of systems. No complaint of visual acuity no headache she is not complaint chest pain just shortness of breath though complains of abdominal fullness. States she's not getting as much fluid off as she had been in the past she's gained 5-6 pounds over the last 3 weeks. Patient is complaining of pain to her feet difficulty walking. All systems are reviewed. Past medical problems significant for stroke and 01, insulin-dependent diabetes mellitus, GERD, hyperlipidemia, hypertension, renal failureend-stage. On peritoneal dialysis.. Dialysis for the last 13 months. History of COPD, angina and chronic A. fib. Also some short-term memory problems. The patient' s surgeries include tonsils, adenoids, AICD, bladder surgery, gallbladder, hysterectomy. Family history mother had leukemia both sisters had Hodgkin's lymphoma. The patient's aunt had breast cancer. Patient has ALLERGIES to ketorolac and influenza vaccine. She quit smoking 25 years ago she's recovering alcoholic for the past 3 years. ROS Other: All systems not noted in ROS Statement are negative. Past Medical History Past Medical History: Atrial Fibrillation, Chest Pain / Angina, Heart Failure, COPD, CVA/TIA, Deep Vein Thrombosis (DVT), GERD/Reflux, Hyperlipidemia, Hypertension, Memory Impairment, Renal Disease Additional Past Medical History / Comment(s): short term memory impairment;CHF- , UTI with sepsis-septic shock 10/2014; IDDM type II; back pain; neuropathy bilateral feet/legs; osteoporosis;DJD, fx sternum; blood clots/DVT, 2000 CVA with R sided weaknes, chronic kidney disease-peritoneal dialysis, 03/2016 L humerus fx, RLS, paroxysmal AFib, anemia multifactoral, cataracts bilaterally, anemia, rheumatic fever, urinary calculus , C Diff colitis, UTIs, UTI with sepsis/septic shock, chronic abdominal pain, falls. 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 Pt has received blood in past without reaction. 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 She has a daughter who is very involved with her care. She has [facility] home care nurse and PT/OT. She NO LONGER DRIVES-HER DAUGHTER TAKES HER TO APPTS AND DOES SHOPPING. Pt uses a walker or cane to ambulate most of the time now. Pt has home o2 at 2.5L/NC ATC, a nebilizer, and hospital bed. 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 Adult daughter is very helpful with day- to-day activity and helping her with her CAPD. No animal exposures. No experience. No international travel Smoking Status: Former smoker Past Alcohol Use History: None Reported Additional Past Alcohol Use History / Comment(s): Pt startes smoking in 1965 and quit in 2011 Past Drug Use History: None Reported Additional Drug Use History / Comment(s): Pt has hx of alcoholism. She has not drank alcohol for 25 yrs. - Past Family History Sister(s) Family Medical History: Cancer Additional Family Medical History / Comment(s): SISTER IN HER MID 40'S OF HODGKINS LYMPHOMA. Father Family Medical History: Congestive Heart Failure (CHF), COPD, Deep Vein Thrombosis (DVT) Additional Family Medical History / Comment(s): ETOH ABUSE. FATHER AT AGE 67 OF EMPHYSEMA AND CHF AND ETOH. Mother Family Medical History: Cancer Additional Family Medical History / Comment(s): MOTHER AT AGE 53 YRS OF LEUKEMIA. General Exam - General Exam Comments Initial Comments: General: The patient is awake and alert, complaining of not feeling well in general. Complains of painful feet since last night difficulty walking. Feels that his gaining fluid weight, 6 pounds the last 3 weeks. He does night long. She does dialysis at night via peritoneal dialysis. Vital signs are temperature 98.0 pulse 120 over story rate 16 pulse ox 98% on 2 L. Blood pressure 105/71 Eye: Pupils are equal, round and reactive to light, extra-ocular movements are intact ; there is normal conjunctiva bilaterally. No signs of icterus. Ears, nose, mouth and throat: There are moist mucous membranes and no oral lesions. Neck: The neck is supple, there is no tenderness . Cardiovascular: Tachycardic heart rate. No murmur, rub or gallop is appreciated. Respiratory: Complains of feeling short of breath. Crepitant rales appreciated at the bases. Gastrointestinal: Soft, non-distended, non-tender abdomen without masses or organomegaly noted. There is no rebound or guarding present. No CVA tenderness. Bowel sounds are unremarkable. No pain with palpation. Patient does have peritoneal dialysis nightly. She states that the dialysate is clear. No fever. Back: There is no tenderness to palpation in the midline. There is no obvious deformity. No rashes noted. Musculoskeletal: Complains of peripheral neuropathy from chronic diabetes. 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 Pedis dorsalis pulses obtained with Doppler. Neurological: Neurologically intact but complains of difficulty walking because of painful feet and peripheral neuropathy. Skin: Vasculitic changes to both feet Psychiatric: Cooperative, appropriate mood & affect, normal judgment. Limitations: no limitations Course Vital Signs 12/26/16 12/26/16 12/26/16 15:11 15:25 15:31 Temperature 98.0 F Pulse Rate 131 H 128 H Pulse Rate [ 120 H Bilateral Radial] Respiratory 18 16 Rate Blood Pressure 109/67 105/71 O2 Sat by Pulse 90 L 98 Oximetry 12/26/16 12/26/16 17:22 18:31 Temperature 98.8 F Pulse Rate 124 H 104 H Pulse Rate [ Bilateral Radial] Respiratory 15 14 Rate Blood Pressure 97/55 99/59 O2 Sat by Pulse 99 95 Oximetry EKG Findings - EKG Comments: EKG Findings:: EKG was done and reviewed at 1517 showing sinus tachycardia with a nonspecific intraventricular conduction delay. Age undetermined anterolateral infarct. Rate 126 QRS 144 QRS 142 QT 356 QTc 5:15. Dr. Dave this EKG was compared to one done on 09/06/2017. At that time and November the patient was being atrially sensed ventricularly paced at a rapid rate of 105 no other comparison made. Medical Decision Making - Medical Decision Making Medical decision making; patient's white count 8.6 hemoglobin 10.8 hematocrit of 33. The patient's INR 1.0. Potassium is 4.7 with a BUN of 27 creatinine elevated at 7.91 and GFR of only 5. Glucose 146, troponin 0.039 and MB fraction 2.8. BNP is 91,000. Chest x-ray was done and reviewed by radiologist his impression is cardiomegaly. Small left pleural effusion. No heart failure and no change compared to last exam. As read by Dr. Alvarenga The case discussed with nurse practitioner national sales associate for Dr. Walker. Patient be admitted to Dr. Walker service. Consultation from nephrology - Lab Data Result diagrams: 12/26/16 15:39 12/26/16 15:39 Lab Results 12/26/16 12/26/16 12/26/16 Range/Units 15:39 15:39 15:39 WBC 8.6 (3.8-10.6) k/uL RBC 3.62 L (3.80-5.40) m/uL Hgb 10.8 L (11.4-16.0) gm/dL Hct 33.2 L (34.0-46.0) % MCV 91.9 (80.0-100.0) fL MCH 29.9 (25.0-35.0) pg MCHC 32.6 (31.0-37.0) g/dL RDW 14.8 (11.5-15.5) % Plt Count 186 D (150-450) k/uL Neutrophils % 70 % Lymphocytes % 16 % Monocytes % 5 % Eosinophils % 5 % Basophils % 1 % Neutrophils # 6.0 (1.3-7.7) k/uL Lymphocytes # 1.4 (1.0-4.8) k/uL Monocytes # 0.4 (0-1.0) k/uL Eosinophils # 0.4 (0-0.7) k/uL Basophils # 0.1 (0-0.2) k/uL PT (9.0-12.0) sec INR (<1.1) APTT (22.0-30.0) sec Sodium 141 (137-145) mmol/L Potassium 4.7 (3.5-5.1) mmol/L Chloride 98 (98-107) mmol/L Carbon Dioxide 29 (22-30) mmol/L Anion Gap 14 mmol/L BUN 27 H (7-17) mg/dL Creatinine 7.91 H* (0.52-1.04) mg/dL Est GFR (MDRD) Af Amer 6 (>60 ml/min/1.73 sqM) Est GFR (MDRD) Non-Af 5 (>60 ml/min/1.73 sqM) Glucose 146 H (74-99) mg/dL Calcium 8.1 L (8.4-10.2) mg/dL Total Bilirubin 0.7 (0.2-1.3) mg/dL AST 14 (14-36) U/L ALT 35 (9-52) U/L Alkaline Phosphatase 183 H (38-126) U/L Total Creatine Kinase 34 (30-135) U/L CK-MB (CK-2) 2.8 H* (0.0-2.4) ng/mL CK-MB (CK-2) Rel Index 8.2 Troponin I 0.039 H* (0.000-0.034) ng/mL NT-Pro-B Natriuret Pep pg/mL Total Protein 5.7 L (6.3-8.2) g/dL Albumin 3.0 L (3.5-5.0) g/dL 12/26/16 12/26/16 Range/Units 15:39 15:39 WBC (3.8-10.6) k/uL RBC (3.80-5.40) m/uL Hgb (11.4-16.0) gm/dL Hct (34.0-46.0) % MCV (80.0-100.0) fL MCH (25.0-35.0) pg MCHC (31.0-37.0) g/dL RDW (11.5-15.5) % Plt Count (150-450) k/uL Neutrophils % % Lymphocytes % % Monocytes % % Eosinophils % % Basophils % % Neutrophils # (1.3-7.7) k/uL Lymphocytes # (1.0-4.8) k/uL Monocytes # (0-1.0) k/uL Eosinophils # (0-0.7) k/uL Basophils # (0-0.2) k/uL PT 10.1 (9.0-12.0) sec INR 1.0 (<1.1) APTT 24.2 (22.0-30.0) sec Sodium (137-145) mmol/L Potassium (3.5-5.1) mmol/L Chloride (98-107) mmol/L Carbon Dioxide (22-30) mmol/L Anion Gap mmol/L BUN (7-17) mg/dL Creatinine (0.52-1.04) mg/dL Est GFR (MDRD) Af Amer (>60 ml/min/1.73 sqM) Est GFR (MDRD) Non-Af (>60 ml/min/1.73 sqM) Glucose (74-99) mg/dL Calcium (8.4-10.2) mg/dL Total Bilirubin (0.2-1.3) mg/dL AST (14-36) U/L ALT (9-52) U/L Alkaline Phosphatase (38-126) U/L Total Creatine Kinase (30-135) U/L CK-MB (CK-2) (0.0-2.4) ng/mL CK-MB (CK-2) Rel Index Troponin I (0.000-0.034) ng/mL NT-Pro-B Natriuret Pep 65147 pg/mL Total Protein (6.3-8.2) g/dL Albumin (3.5-5.0) g/dL Disposition Clinical Impression: End stage renal disease on dialysis Disposition: ADMITTED IP TO THIS HOSP
[2016-12-26 17:11] LABS: Basophils # (A) 0.1 k/uL (0-0.2); Basophils % (A) 1 %; CH 30.1; CHCM 32.9; Eosinophils # (A) 0.4 k/uL (0-0.7); Eosinophils % (A) 5 %; HCT 33.2 % (34.0-46.0); HDW 2.81; HGB 10.8 gm/dL (11.4-16.0); Luc # (Auto) 0.25; Luc % (Auto) 3; Lymphocytes # (A) 1.4 k/uL (1.0-4.8); Lymphocytes % (A) 16 %; MCH 29.9 pg (25.0-35.0); MCHC 32.6 g/dL (31.0-37.0); MCV 91.9 fL (80.0-100.0); Mean Platelet Volume 7.6; Monocytes # (A) 0.4 k/uL (0-1.0); Monocytes % (A) 5 %; Neutrophils % (A) 70 %; RBC 3.62 m/uL (3.80-5.40); RDW 14.8 % (11.5-15.5); WBC 8.6 k/uL (3.8-10.6); WBC (Perox) 8.67
[2016-12-26 17:16] LABS: Partial Thromboplastin Time 24.2 sec (22.0-30.0); Prothrombin Time 10.1 sec (9.0-12.0)
[2016-12-26 17:17] LABS: Calcium 8.1 mg/dL (8.4-10.2); Potassium 4.7 mmol/L (3.5-5.1); Total Bilirubin 0.7 mg/dL (0.2-1.3); Total Protein 5.7 g/dL (6.3-8.2)
[2016-12-26] MEDS ORDERED: HYDROmorphone 1 MG/ML 1 ML SYRINGE IVP STA (17:27)
[2016-12-26 17:51] LABS: Creatine Kinase MB 2.8 ng/mL (0.0-2.4); Troponin I 0.039 ng/mL (0.000-0.034)
--- NOTE | 2016-12-26 18:06 | XR ---
EXAMINATION TYPE: XR chest 2V DATE OF EXAM: 12/26/2016 5:45 PM COMPARISON: 12/07/2016 HISTORY: Difficulty breathing TECHNIQUE: Frontal and lateral views of the chest are obtained. FINDINGS: There is no heart failure. Heart appears slightly enlarged. There is a small left pleural effusion. There are no hilar masses. There is left axillary pacemaker with the lead tip in the right ventricle. There are chest leads. IMPRESSION: Cardiomegaly. Small left pleural effusion. No heart failure and no change compared to la st exam.
[2016-12-26] MEDS ORDERED: NALOXONE 0.4 MG/ML 1 ML VIAL IV PRN (18:40)
[2016-12-26] MEDS ORDERED: PROCHLORPERAZINE 5 MG TAB PO PRN (18:40)
[2016-12-26] MEDS ORDERED: LIDOCAINE 4% CREAM 5 GM TUBE TOPICAL PRN (18:44)
[2016-12-26] MEDS ORDERED: HYDROcodone/APAP 10-325MG 1 EACH TAB PO SCH (18:45)
[2016-12-26] MEDS: SODIUM CHLORIDE 0.9% 1,000 ML IV SCH (18:57)
[2016-12-26 19:05] LABS: Glucose,Whole Blood 126 mg/dL (75-99)
[2016-12-26] MEDS ORDERED: ALBUTEROL NEBULIZED 2.5 MG/3 ML INHALATION SCH (20:00)
[2016-12-26 20:04] LABS: Hemoglobin A1C 8.1 % (4.2-6.1)
[2016-12-26] MEDS ORDERED: METOPROLOL SUCCINATE (ER) 25 MG TAB.ER.24H PO SCH (21:00)
[2016-12-26] MEDS: MAGNESIUM OXIDE 400 MG TAB PO SCH (21:52)
[2016-12-26] MEDS: HYDROmorphone 1 MG/ML 1 ML SYRINGE IVP PRN (21:55)
[2016-12-26] MEDS: DIALYSIS DEX INTRAPERIT SCH (22:08)
[2016-12-26 22:38] VITALS: BMI 27.6
[2016-12-26] MEDS: INSULIN LISPRO (humaLOG) 300 UNIT/3 ML VIAL SQ SCH (23:00)
[2016-12-26] MEDS: ALPRAZolam 0.5 MG TAB PO SCH (23:12)
[2016-12-26] MEDS: HYDROcodone/APAP 10-325MG 1 EACH TAB PO SCH (23:12)
[2016-12-27] MEDS: HYDROmorphone 1 MG/ML 1 ML SYRINGE IVP PRN ×4 (03:05→23:09)
[2016-12-27] MEDS: DIALYSIS DEX INTRAPERIT SCH ×4 (04:48→23:45)
[2016-12-27] MEDS: guaiFENesin-DM 100-10MG/5ML 10 ML CUP PO PRN ×3 (05:05→23:12)
[2016-12-27] MEDS: HYDROcodone/APAP 10-325MG 1 EACH TAB PO SCH ×3 (05:14→18:21)
[2016-12-27 06:26] LABS: Glucose,Whole Blood 206 mg/dL (75-99)
[2016-12-27 06:58] LABS: Calcium 7.9 mg/dL (8.4-10.2); Potassium 3.8 mmol/L (3.5-5.1)
[2016-12-27] MEDS: INSULIN LISPRO (humaLOG) 300 UNIT/3 ML VIAL SQ SCH ×4 (06:58→21:24)
[2016-12-27] MEDS: CALCIUM ACETATE 667 MG CAP PO SCH ×3 (06:58→17:01)
[2016-12-27] MEDS: METHIMAZOLE 5 MG TAB PO SCH (08:09)
[2016-12-27] MEDS: FOLIC ACID-VIT B COMPLEX-VIT C 1 CAP PO SCH (08:09)
[2016-12-27] MEDS: PANTOPRAZOLE 40 MG/10 ML VIAL IV SCH (08:10)
[2016-12-27] MEDS: MAGNESIUM OXIDE 400 MG TAB PO SCH ×3 (08:12→22:10)
--- NOTE | 2016-12-27 08:43 | P.NPCON ---
History of Present Illness - Reason for Consult end stage renal disease - History of Present Illness Reason for consultation: End-stage renal disease History of present illness: Patient is a 61-year-old female seen in renal consultation for end- stage renal disease. She is maintained on peritoneal dialysis. Patient presented to the hospital with 6 pound weight gain as well as red discoloration of her feet. Patient stated her feet are tender to touch. She doesn't really have significant edema and chest x-ray reveals a small left-sided pleural effusion. With her last peritoneal dialysis exchange she maintained in that - 400 mL balance. States peritoneal dialysate has been clear. She denies any abdominal pain. She does admit to dyspnea as well as chest discomfort with exertion. Denies vomiting or diarrhea. Appetite is fair. She does feel as if she has a urinary tract infection. She does have history of systolic CHF with ejection fraction of less than 20% along with mild to moderate mitral and tricuspid regurgitation. Also has moderate pulmonary hypertension. Vital signs are stable. General: The patient appeared well nourished and normally developed. HEENT: Head exam is unremarkable. Neck is without jugular venous distension. LUNGS: Lungs are clear to auscultation and percussion. Breath sounds decreased. HEART: Rate and Rhythm are regular. First and second heart sounds normal. No murmurs, rubs or gallops. ABDOMEN: Abdominal exam reveals normal bowel sounds. Moderately distended. No evidence of peritonitis. EXTREMITITES: Trace edema. Red discoloration of the feet noted. Palpable pulses. Past Medical History Past Medical History: Atrial Fibrillation, Chest Pain / Angina, Heart Failure, COPD, CVA/TIA, Deep Vein Thrombosis (DVT), GERD/Reflux, Hyperlipidemia, Hypertension, Memory Impairment, Renal Disease Additional Past Medical History / Comment(s): short term memory impairment;CHF- , UTI with sepsis-septic shock 10/2014; IDDM type II; back pain; neuropathy bilateral feet/legs; osteoporosis;DJD, fx sternum; blood clots/DVT, 2000 CVA with R sided weaknes, chronic kidney disease-peritoneal dialysis, 03/2016 L humerus fx, RLS, paroxysmal AFib, anemia multifactoral, cataracts bilaterally, anemia, rheumatic fever, urinary calculus , C Diff colitis, UTIs, UTI with sepsis/septic shock, chronic abdominal pain, falls. 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 Pt has received blood in past without reaction. 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 She has a daughter who is very involved with her care. She has [facility] home care nurse and PT/OT. She NO LONGER DRIVES-HER DAUGHTER TAKES HER TO APPFive minutes AND DOES SHOPPING. Pt uses a walker or cane to ambulate most of the time now. Pt has home o2 at 2.5L/NC ATC, a nebilizer, and hospital bed. 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 Adult daughter is very helpful with day- to-day activity and helping her with her CAPD. No animal exposures. No experience. No international travel Smoking Status: Former smoker Past Alcohol Use History: None Reported Additional Past Alcohol Use History / Comment(s): Pt startes smoking in 1965 and quit in 2011 Past Drug Use History: None Reported Additional Drug Use History / Comment(s): Pt has hx of alcoholism. She has not drank alcohol for 25 yrs. - Past Family History Sister(s) Family Medical History: Cancer Additional Family Medical History / Comment(s): SISTER IN HER MID 40'S OF HODGKINS LYMPHOMA. Father Family Medical History: Congestive Heart Failure (CHF), COPD, Deep Vein Thrombosis (DVT) Additional Family Medical History / Comment(s): ETOH ABUSE. FATHER AT AGE 67 OF EMPHYSEMA AND CHF AND ETOH. Mother Family Medical History: Cancer Additional Family Medical History / Comment(s): MOTHER AT AGE 53 YRS OF LEUKEMIA. Medications and Allergies Home Medications Medication Instructions Recorded Confirmed Type Insulin Glargine,Hum.rec.anlog 20 unit SQ HS 08/12/15 12/26/16 History [Lantus Solostar] Ferrous Sulfate [Iron (65 MG 325 mg PO AC-SUPPER 08/13/15 12/26/16 History Elemental)] Ergocalciferol [Vitamin D2 50,000 unit PO TH 04/01/16 12/26/16 History (DRISDOL)] Methimazole 5 mg PO DAILY 04/01/16 12/26/16 History Omeprazole [PriLOSEC] 20 mg PO DAILY PRN 05/10/16 12/26/16 History ALPRAZolam [Xanax] 1 mg PO HS 10/25/16 12/26/16 History Albuterol Nebulized [Ventolin 2.5 mg INHALATION RT-QID 10/25/16 12/26/16 History Nebulized] HYDROcodone/APAP 10-325MG [[place] 1 tab PO Q6H 10/25/16 12/26/16 History 10-325] Lidocaine 4% Cream [Lmx 4] 1 applic TOPICAL BID PRN 10/25/16 12/26/16 History Folic Acid-Vit B Complex-Vit C 1 cap PO DAILY 12/07/16 12/26/16 History [Nephrocaps] Allergies Allergy/AdvReac Type Severity Reaction Status Date / Time ketorolac tromethamine Allergy Severe Rash/Hives Verified 12/26/16 15:52 [From Toradol] influenza virus vaccine, Allergy Intermediate Swelling Verified 12/26/16 15:52 specific [Influenza Virus Vacc,Specific] Physical Exam Vitals: Vital Signs Temp Pulse Pulse Resp BP BP Pulse Ox 12/27/16 08:00 97.0 F L 94 16 97/52 94 L 12/27/16 05:53 96.4 F L 107 H 16 99/67 92 L 12/27/16 05:52 96.1 F L 107 H 16 93/57 97 12/27/16 03:18 95.5 F L 109 H 16 94/61 93 L 12/27/16 00:00 108 H 16 12/26/16 22:57 126 H 16 96 12/26/16 22:41 97.1 F L 108 H 16 102/65 93 L 12/26/16 20:00 133 H 16 12/26/16 19:30 96.6 F L 133 H 16 107/63 96 12/26/16 19:04 97.0 F L 110 H 14 104/58 98 Intake and Output 12/26/16 12/27/16 12/27/16 22:59 06:59 14:59 Intake Total 150 Balance 150 Intake: IV 150 Sodium Chloride 0.9% 1, 150 000 ml @ 30 mls/hr IV . Q24H JENNY Rx#:[id number] Other: Weight 70.6 kg 74.8 kg Results - Lab Results Most recent lab results Calcium 7.9 mg/dL (8.4-10.2) L 12/27/16 05:50 12/26/16 15:39 12/27/16 05:50 Assessment and Plan Plan: Assessment: #1. End-stage renal disease maintained on peritoneal dialysis. #2. Mild fluid overload. #3. Red discoloration of the feet possibly related to cellulitis. #4. Chronic kidney disease mineral bone disease. #5. Anemia of chronic kidney disease. #6. Chronic hypotension related to underlying cardiac status. #7. Systolic CHF with ejection fraction of less than 20%. #8. Moderate pulmonary hypertension. Plan: Continue with 2 L exchanges with 2.5% dextrose solution every 6 hours. If doesn't maintain net negative fluid balance, will increase the frequency and use 4.25% solution. Check phosphorus level. Check urinalysis and a urine culture. 1 g IV vancomycin once today. Obtain infectious disease recommendations. Thank you for the consultation. I will continue to follow the patient with you during her hospital stay.
--- NOTE | 2016-12-27 11:11 | P.CRDCN ---
History of Present Illness Consult date: 12/27/16 Chief complaint: Shortness of breath History of present illness: This is a pleasant 61-year-old female patient who sees Dr. Nuñez as an outpatient with a past medical history significant for nonischemic cardiomyopathy and status post AICD, end stage renal disease on peroneal dialysis, hypertension, dyslipidemia, as well as multiple comorbid conditions presented to the hospital with progressive dyspnea and bilateral lower extremities edema. The patient stated that she was maintaining care daily peritoneal dialysis and she was compliant with it. She gained significant amount of weight within a few days only. She has been more short of breath in the term of exertional dyspnea. Also she developed severe bilateral lower extremities edema. She denies having any anginal chest discomfort. The cardiac enzymes were checked and came in to be slightly abnormal. Upon presentation to the hospital and during her hospitalization she has been in sinus tachycardia with a resting heart rate around 100. The patient was seen and evaluated by the nephrology service and they recommended some changes on the dialysis fluid and possible increasing in the frequency if the patient did not have any negative fluid balance. From the cardiovascular standpoint overview, I am going to increase the dose of Toprol-XL to 25 mg by mouth daily. I would add aspirin to the current medical treatment as well. The abnormal cardiac enzymes is likely secondary to severity cardiomyopathy as well as sinus tachycardia. The patient is known to have nonischemic cardiomyopathy. Past Medical History Past Medical History: Atrial Fibrillation, Chest Pain / Angina, Heart Failure, COPD, CVA/TIA, Deep Vein Thrombosis (DVT), GERD/Reflux, Hyperlipidemia, Hypertension, Memory Impairment, Renal Disease Additional Past Medical History / Comment(s): short term memory impairment;CHF- , UTI with sepsis-septic shock 10/2014; IDDM type II; back pain; neuropathy bilateral feet/legs; osteoporosis;DJD, fx sternum; blood clots/DVT, 2000 CVA with R sided weaknes, chronic kidney disease-peritoneal dialysis, 03/2016 L humerus fx, RLS, paroxysmal AFib, anemia multifactoral, cataracts bilaterally, anemia, rheumatic fever, urinary calculus , C Diff colitis, UTIs, UTI with sepsis/septic shock, chronic abdominal pain, falls. 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 Pt has received blood in past without reaction. 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 She has a daughter who is very involved with her care. She has [facility] home care nurse and PT/OT. She NO LONGER DRIVES-HER DAUGHTER TAKES HER TO APPTS AND DOES SHOPPING. Pt uses a walker or cane to ambulate most of the time now. Pt has home o2 at 2.5L/NC ATC, a nebilizer, and hospital bed. 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 Adult daughter is very helpful with day- to-day activity and helping her with her CAPD. No animal exposures. No experience. No international travel Smoking Status: Former smoker Past Alcohol Use History: None Reported Additional Past Alcohol Use History / Comment(s): Pt startes smoking in 1964 and quit in 2011 Past Drug Use History: None Reported Additional Drug Use History / Comment(s): Pt has hx of alcoholism. She has not drank alcohol for 25 yrs. - Past Family History Sister(s) Family Medical History: Cancer Additional Family Medical History / Comment(s): SISTER IN HER MID 40'S OF HODGKINS LYMPHOMA. Father Family Medical History: Congestive Heart Failure (CHF), COPD, Deep Vein Thrombosis (DVT) Additional Family Medical History / Comment(s): ETOH ABUSE. FATHER AT AGE 67 OF EMPHYSEMA AND CHF AND ETOH. Mother Family Medical History: Cancer Additional Family Medical History / Comment(s): MOTHER AT AGE 53 YRS OF LEUKEMIA. Medications and Allergies Home Medications Medication Instructions Recorded Confirmed Type Insulin Glargine,Hum.rec.anlog 20 unit SQ HS 08/12/15 12/26/16 History [Lantus Solostar] Ferrous Sulfate [Iron (65 MG 325 mg PO AC-SUPPER 08/13/15 12/26/16 History Elemental)] Ergocalciferol [Vitamin D2 50,000 unit PO TH 04/01/16 12/26/16 History (DRISDOL)] Methimazole 5 mg PO DAILY 04/01/16 12/26/16 History Omeprazole [PriLOSEC] 20 mg PO DAILY PRN 05/10/16 12/26/16 History ALPRAZolam [Xanax] 1 mg PO HS 10/25/16 12/26/16 History Albuterol Nebulized [Ventolin 2.5 mg INHALATION RT-QID 10/25/16 12/26/16 History Nebulized] HYDROcodone/APAP 10-325MG [[place] 1 tab PO Q6H 10/25/16 12/26/16 History 10-325] Lidocaine 4% Cream [Lmx 4] 1 applic TOPICAL BID PRN 10/25/16 12/26/16 History Folic Acid-Vit B Complex-Vit C 1 cap PO DAILY 12/07/16 12/26/16 History [Nephrocaps] Allergies Allergy/AdvReac Type Severity Reaction Status Date / Time ketorolac tromethamine Allergy Severe Rash/Hives Verified 12/26/16 15:52 [From Toradol] influenza virus vaccine, Allergy Intermediate Swelling Verified 12/26/16 15:52 specific [Influenza Virus Vacc,Specific] Physical Exam Vitals: Vital Signs Temp Pulse Pulse Resp BP BP Pulse Ox 12/27/16 08:00 97.0 F L 96 16 97/52 94 L 12/27/16 05:53 96.4 F L 107 H 16 99/67 92 L 12/27/16 05:52 96.1 F L 107 H 16 93/57 97 12/27/16 03:18 95.5 F L 109 H 16 94/61 93 L 12/27/16 00:00 108 H 16 12/26/16 22:57 126 H 16 96 12/26/16 22:41 97.1 F L 108 H 16 102/65 93 L 12/26/16 20:00 133 H 16 12/26/16 19:30 96.6 F L 133 H 16 107/63 96 12/26/16 19:04 97.0 F L 110 H 14 104/58 98 Intake and Output 12/26/16 12/27/16 12/27/16 22:59 06:59 14:59 Intake Total 150 340 Balance 150 340 Intake: IV 150 Sodium Chloride 0.9% 1, 150 000 ml @ 30 mls/hr IV . Q24H JENNY Rx#:[id number] Oral 340 Other: # Bowel Movements 1 Weight 70.6 kg 74.8 kg - Constitutional General appearance: no acute distress - Respiratory Respiratory: bilateral: diminished - Cardiovascular Rhythm: regular Heart sounds: normal: S1, S2 Results 12/26/16 15:39 12/27/16 05:50 Comprehensive Metabolic Panel 12/27/16 Range/Units 05:50 Sodium 141 (137-145) mmol/L Potassium 3.8 (3.5-5.1) mmol/L Chloride 99 (98-107) mmol/L Carbon Dioxide 27 (22-30) mmol/L BUN 29 H (7-17) mg/dL Creatinine 8.11 H* (0.52-1.04) mg/dL Glucose 191 H (74-99) mg/dL Calcium 7.9 L (8.4-10.2) mg/dL Current Medications Generic Name Dose Route Start Last Admin Trade Name Freq PRN Reason Stop Dose Admin Hydrocodone Bitart/Acetaminophen 1 each 12/26/16 19:04 12/27/16 05:14 [place] 10 PO 1 each Q6HR JENNY Administration Albuterol Sulfate 2.5 mg 12/26/16 19:03 Ventolin Nebulized INHALATION RT-Q4H PRN Shortness Of Breath Or Wheezing Alprazolam 1 mg 12/26/16 21:00 12/26/16 23:12 Xanax PO 1 mg HS [facility] Administration Calcium Acetate 667 mg 12/27/16 07:30 12/27/16 06:58 Phoslo PO 667 mg TID-W/MEALS [facility] Administration Ergocalciferol 50,000 unit 01/01/17 09:00 Vitamin D2 PO TH [facility] Ferrous Sulfate 325 mg 12/27/16 17:30 Feosol PO AC-SUPPER [facility] Guaifenesin/Dextromethorphan 10 ml 12/27/16 00:47 12/27/16 05:05 Robitussin Dm PO 10 ml Q6H PRN Administration Cough Hydromorphone HCl 0.5 mg 12/26/16 21:28 12/27/16 10:39 Dilaudid IVP 0.5 mg Q6HR PRN Administration Pain Sodium Chloride 1,000 mls @ 20 mls/hr 12/26/16 16:47 12/26/16 17:25 Saline 0.9% IV 12/27/16 16:46 20 mls/hr .Q24H STA Administration Sodium Chloride 1,000 mls @ 30 mls/hr 12/26/16 18:45 12/26/16 18:57 Saline 0.9% IV 30 mls/hr .Q24H JENNY Administration Peritoneal Dialysis Solution 2,000 mls @ 0 mls/hr 12/26/16 22:00 12/27/16 04: 48 Delflex With 2.5% Dextrose INTRAPERIT 2,000 mls/hr Q6HR JENNY Administration As Directed Insulin Human Lispro 0 unit 12/26/16 21:00 12/27/16 06:58 Humalog SQ 3 unit ACHS JENNY Administration Protocol Lidocaine HCl 1 applic 12/26/16 18:44 Lmx 4 TOPICAL BID PRN Foot Pain Magnesium Oxide 400 mg 12/26/16 22:00 12/27/16 08:12 Mag-Ox PO 400 mg TID JENNY Administration Methimazole 5 mg 12/27/16 09:00 12/27/16 08:09 Tapazole PO 5 mg DAILY JENNY Administration Metoprolol Succinate 25 mg 12/27/16 11:05 Toprol Xl PO HS JENNY Multivit/Ca Carb/B Cmplx/FA/Prenat 1 each 12/27/16 09:00 12/27/16 08:09 Nephrocaps PO 1 each DAILY JENNY Administration Naloxone HCl 0.2 mg 12/26/16 18:40 Narcan IV Q2M PRN Opioid Reversal Pantoprazole Sodium 40 mg 12/27/16 09:00 12/27/16 08:10 Protonix IV 40 mg DAILY JENNY Administration Prochlorperazine Maleate 5 mg 12/26/16 18:40 Compazine PO Q8HR PRN Nausea And Vomiting Torsemide 60 mg 12/27/16 09:00 Demadex PO DAILY JENNY Intake and Output 12/26/16 12/27/16 12/27/16 22:59 06:59 14:59 Intake Total 150 340 Balance 150 340 Intake: IV 150 Sodium Chloride 0.9% 1, 150 000 ml @ 30 mls/hr IV . Q24H JENNY Rx#:[id number] Oral 340 Other: # Bowel Movements 1 Weight 70.6 kg 74.8 kg 12/27/16 05:50 Assessment and Plan Plan: Assessment Fluid overloaded Severe nonischemic cardiomyopathy Sinus tachycardia End stage renal disease on peritoneal dialysis Multiple comorbid conditions Plan Continue the dialysis per nephrology recommendation Increase the dose of Toprol-XL for better heart rate control Add aspirin to the current medical treatment Follow-up with the patient
[2016-12-27 11:58] LABS: Glucose,Whole Blood 114 mg/dL (75-99)
[2016-12-27] MEDS: TORSEMIDE 20 MG TAB PO SCH (12:38)
[2016-12-27] MEDS ORDERED: VANCOMYCIN 1,000 MG in SODIUM CHLORIDE 0.9% 250 ML IVPB STA (12:52)
[2016-12-27 15:46] LABS: Glucose,Whole Blood 207 mg/dL (75-99)
--- NOTE | 2016-12-27 16:51 | HP ---
DATE OF SERVICE: 12/27/2016 Chief complaint is increased swelling of her lower extremity along with pain. HISTORY OF PRESENT ILLNESS: Ms. Ibrahim is 61-year-old female with a past medical history of COPD, atrial fibrillation, congestive heart failure, stroke/TIA, DVT, GERD, hypertension, hyperlipidemia, chronic renal disease on peritoneal dialysis, coming into the hospital with a chief complaint of increased swelling of her lower extremities along with the pain. The patient states that her lower extremities have been swollen and also have this discoloration going on for the past 2 to 3 days. Patient complains of generalized weakness but denies having any fevers. Patient also reports weight gain of almost 6 pounds. She states that she has been not able to maintain negative balance with her peritoneal dialysis so she came in for further management. Patient denies having any fevers. No generalized abdominal pain. No change in her peritoneal dialysate fluid. It has been clear. Patient also complains of some difficulty in breathing and chest discomfort with exertion. Denies having any nausea, vomiting, or diarrhea. Patient does not make urine and denies having any symptoms of UTI. Patient does have history of congestive heart failure with ejection fraction of less than 20% along with mild to moderate mitral and tricuspid regurgitation and she has moderate pulmonary hypertension. Nephrology and Cardiology services have been consulted who has seen the patient this morning. Patient did get one run of peritoneal dialysis this morning. REVIEW OF SYSTEMS: All 14 review of systems are done and negative except for the ones mentioned above. PAST MEDICAL HISTORY: Significant for atrial fibrillation and congestive heart failure with EF of 20% and history of deep venous thrombosis and COPD, GERD, hypertension, hyperlipidemia, CKD on peritoneal dialysis, chronic anemia. PAST SURGICAL HISTORY: Adenoidectomy, ICD, bladder surgery, cholecystectomy, hysterectomy, pacemaker, tonsillectomy. SOCIAL HISTORY: Former smoker. Occasional alcohol. Quit alcohol 12-years back. Family history of Hodgkin's lymphoma in her sister and COPD and DVT in her father. History of leukemia in her mother. ALLERGIES: KETOROLAC, INFLUENZA VACCINE. HOME MEDICATIONS: 1. Lantus 20 units subcu q.h.s. 2. Ferrous sulfate 325 mg with supper. 3. Vitamin D2 50,000 units once a week. 4. Methimazole 5 mg p.o. daily. 5. Omeprazole 20 mg p.o. p.r.n. for abdominal pain. 6. Xanax 1 mg p.o. q.h.s. 7. Albuterol inhalations. 8. [place] 10/325, 1 tablet q.6 hours p.r.n. for pain. 9. Lidocaine 4% cream topically b.i.d. 10. Nephrocaps 1 capsule p.o. daily. On examination, patient's vital signs temperature 97, heart rate 94, respiratory rate 16, blood pressure 97/52, saturating at 94% on 2 liters of nasal cannula. Patient is sitting up in her bed, states that she is in pain due to swelling and redness in her lower extremities. HEAD: Atraumatic, nontraumatic. EYES: Mild pallor. No icterus. NECK: No JVD. No thyromegaly. CARDIOVASCULAR: S1, S2 heard. LUNGS: Bilateral breath sounds are positive, slightly diminished in the lower lung bases. GI: Abdomen is soft, nontender. Bowel sounds are positive. EXTREMITIES: Positive for pitting edema bilaterally and reddish to pinkish discoloration of both feet along with some petechia that dena. Pedal pulses are difficult to palpate due to edema and pain. 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 No focal neurological deficits. MUSCULOSKELETAL: No joint swellings or deformities. PSYCHIATRIC: Appropriate mood and affect. Patient's labs: Sodium is 141, potassium 3.8, chloride 99, bicarb 27, BUN 29, creatinine is 8.11, white count of 8.6, hemoglobin 10.8, platelets of 186. PT of 10.1, INR 1. APTT of 24.2. Album[place] 3[place] [address]. Troponin 0.039. ASSESSMENT AND PLAN: 1. Bilateral lower extremity swelling with pain, most likely secondary to cellulitis. Will need to rule out deep venous thrombosis so will get a bilateral lower extremity Doppler. 2. Patient is in fluid overload. 3. Chronic kidney disease with peritoneal dialysis. 4. Anemia of chronic kidney disease. 5. Systolic congestive heart failure with ejection fraction of 20%, in acute exacerbation currently. 6. Moderate pulmonary hypertension. 7. Severe nonischemic cardiomyopathy. 8. Hypertension. 9. Hyperlipidemia. 10. Gastroesophageal reflux disease. 11. History of deep venous thrombosis. 12. History of stroke with right-sided weakness. 13. AICD in place. PLAN: The patient has bilateral lower extremity cellulitis. She dose of vancomycin. Infectious Disease, Dr. Goyal, is on board. Nephrology has been consulted. She is undergoing peritoneal dialysis. As the patient's blood pressure is running on the lower side, we hold off her blood pressure medications for now. Cardiology has been consulted due to slight elevation in her troponin. Overall prognosis is guarded due to chronic medical conditions. Further recommendations to follow depending on the progress of the patient. She is a NO CODE. MTDD
[2016-12-27] MEDS: FERROUS SULFATE 325 MG TAB PO SCH (17:01)
[2016-12-27 17:04] LABS: Glucose,Whole Blood 165 mg/dL (75-99)
[2016-12-27 20:33] LABS: Glucose,Whole Blood 157 mg/dL (75-99)
[2016-12-27] MEDS: ALBUTEROL NEBULIZED 2.5 MG/3 ML INHALATION PRN (20:51)
[2016-12-27] MEDS: METOPROLOL SUCCINATE (ER) 25 MG TAB.ER.24H PO SCH (21:24)
[2016-12-27] MEDS: SODIUM CHLORIDE 0.9% 1,000 ML IV SCH (22:10)
[2016-12-27] MEDS: ALPRAZolam 0.5 MG TAB PO SCH (23:09)
[2016-12-27 23:49] LABS: Appearance,Urine Turbid (Clear); Bacteria,Urine Few /hpf; Bilirubin,Urine Negative (Negative); Glucose,Urine (UA) Negative (Negative); Ketones,Urine Negative (Negative); Leukocyte Esterase,Urine Large (Negative); Nitrite,Urine Negative (Negative); PH, Urine 7.5 (5.0-8.0); Particle Count 84884; Protein,Urine 2+ (Negative); RBC,Urine 21 /hpf (0-5); Squamous Epithelial Cell,Urine 40 /hpf (0-4); UA Billing (MACRO vs. MICRO) MICRO; Urobilinogen,Urine <2.0 mg/dL (<2.0); WBC,Urine >182 /hpf (0-5)
[2016-12-27 23:50] LABS: Specific Gravity,Urine 1.018 (1.001-1.035)
[2016-12-28] MEDS: HYDROcodone/APAP 10-325MG 1 EACH TAB PO SCH ×4 (00:32→21:53)
[2016-12-28 01:31] LABS: RBC, Body Fluid 12 /uL
[2016-12-28] MEDS: DIALYSIS DEX INTRAPERIT SCH ×3 (05:15→18:07)
[2016-12-28] MEDS: HYDROmorphone 1 MG/ML 1 ML SYRINGE IVP PRN ×3 (05:16→17:45)
[2016-12-28 06:18] LABS: Glucose,Whole Blood 180 mg/dL (75-99)
[2016-12-28] MEDS ORDERED: hydrOXYzine HCL 25 MG TAB PO PRN (06:22)
[2016-12-28] MEDS: CALCIUM ACETATE 667 MG CAP PO SCH ×3 (06:46→17:44)
[2016-12-28] MEDS: INSULIN LISPRO (humaLOG) 300 UNIT/3 ML VIAL SQ SCH ×4 (06:47→21:54)
[2016-12-28 07:06] LABS: Basophils % (A) 1 %; CH 29.6; CHCM 31.6; Eosinophils # (A) 0.3 k/uL (0-0.7); Eosinophils % (A) 5 %; HCT 33.3 % (34.0-46.0); HDW 2.79; HGB 10.7 gm/dL (11.4-16.0); Hypochromasia Slight; Luc # (Auto) 0.17; Luc % (Auto) 3; Lymphocytes # (A) 1.3 k/uL (1.0-4.8); Lymphocytes % (A) 21 %; MCH 30.2 pg (25.0-35.0); MCHC 32.1 g/dL (31.0-37.0); MCV 94.2 fL (80.0-100.0); Monocytes # (A) 0.3 k/uL (0-1.0); Monocytes % (A) 5 %; Neutrophils % (A) 66 %; RBC 3.54 m/uL (3.80-5.40); RDW 14.7 % (11.5-15.5); WBC 6.1 k/uL (3.8-10.6); WBC (Perox) 6.76
[2016-12-28 07:22] LABS: Potassium 4.9 mmol/L (3.5-5.1)
[2016-12-28] MEDS: guaiFENesin-DM 100-10MG/5ML 10 ML CUP PO PRN (07:31)
[2016-12-28] MEDS: FOLIC ACID-VIT B COMPLEX-VIT C 1 CAP PO SCH (07:53)
[2016-12-28] MEDS: MAGNESIUM OXIDE 400 MG TAB PO SCH ×3 (07:54→21:54)
[2016-12-28] MEDS: TORSEMIDE 20 MG TAB PO SCH (07:54)
[2016-12-28] MEDS: PANTOPRAZOLE 40 MG/10 ML VIAL IV SCH (07:54)
[2016-12-28] MEDS: METHIMAZOLE 5 MG TAB PO SCH (07:54)
--- NOTE | 2016-12-28 08:04 | P.PN ---
Subjective Patient is seen in follow-up for end-stage renal disease. She is maintained on peritoneal dialysis. Patient presented with pain in her lower extremities. No issues with peritoneal dialysis overnight. Continues to complain of pain in her lower extremities. Denies any chest pain or shortness of breath. No vomiting or diarrhea. Denies abdominal pain. Vital signs are stable. General: The patient appeared well nourished and normally developed. HEENT: Head exam is unremarkable. Neck is without jugular venous distension. LUNGS: Lungs are clear to auscultation and percussion. Breath sounds decreased. HEART: Rate and Rhythm are regular. First and second heart sounds normal. No murmurs, rubs or gallops. ABDOMEN: Abdominal exam reveals normal bowel sounds. Non-tender and non- distended. No evidence of peritonitis. EXTREMITITES: Trace edema. Erythema noted. Objective - Vital Signs Vital signs: Vital Signs Temp 96.2 F L 12/28/16 05:35 Pulse 89 12/28/16 06:09 Resp 16 12/28/16 06:09 BP 89/58 12/28/16 06:09 Pulse Ox 98 12/28/16 06:09 Intake & Output 12/27/16 12/28/16 12/28/16 18:59 06:59 18:59 Intake Total 340 930 Output Total 10 Balance 340 920 Weight 75.5 kg Intake: IV 930 Sodium Chloride 0.9% 1, 930 000 ml @ 30 mls/hr IV . Q24H JENNY Rx#:[id number] Oral 340 Output: Urine 10 Other: # Voids 0 # Bowel Movements 1 - Labs CBC & Chem 7: 12/28/16 06:35 12/28/16 06:35 Labs: Abnormal Lab Results - Last 24 Hours (Table) 12/27/16 12/27/16 12/27/16 Range/Units 11:56 15:43 17:01 RBC (3.80-5.40) m/uL Hgb (11.4-16.0) gm/dL Hct (34.0-46.0) % Plt Count (150-450) k/uL BUN (7-17) mg/dL Creatinine (0.52-1.04) mg/dL Glucose (74-99) mg/dL POC Glucose (mg/dL) 114 H 207 H 165 H (75-99) mg/dL Calcium (8.4-10.2) mg/dL Phosphorus (2.5-4.5) mg/dL Urine Appearance (Clear) Urine Protein (Negative) Urine Blood (Negative) Ur Leukocyte Esterase (Negative) Urine RBC (0-5) /hpf Urine WBC (0-5) /hpf Urine WBC Clumps (None) /hpf Ur Squamous Epith Cells (0-4) /hpf Urine Bacteria (None) /hpf 12/27/16 12/27/16 12/28/16 Range/Units 20:22 23:30 06:15 RBC (3.80-5.40) m/uL Hgb (11.4-16.0) gm/dL Hct (34.0-46.0) % Plt Count (150-450) k/uL BUN (7-17) mg/dL Creatinine (0.52-1.04) mg/dL Glucose (74-99) mg/dL POC Glucose (mg/dL) 157 H 180 H (75-99) mg/dL Calcium (8.4-10.2) mg/dL Phosphorus (2.5-4.5) mg/dL Urine Appearance Turbid H (Clear) Urine Protein 2+ H (Negative) Urine Blood Small H (Negative) Ur Leukocyte Esterase Large H (Negative) Urine RBC 21 H (0-5) /hpf Urine WBC >182 H (0-5) /hpf Urine WBC Clumps Many H (None) /hpf Ur Squamous Epith Cells 40 H (0-4) /hpf Urine Bacteria Few H (None) /hpf 12/28/16 12/28/16 12/28/16 Range/Units 06:35 06:35 07:40 RBC 3.54 L (3.80-5.40) m/uL Hgb 10.7 L (11.4-16.0) gm/dL Hct 33.3 L (34.0-46.0) % Plt Count 141 L (150-450) k/uL BUN 33 H (7-17) mg/dL Creatinine 7.07 H* (0.52-1.04) mg/dL Glucose 198 H (74-99) mg/dL POC Glucose (mg/dL) (75-99) mg/dL Calcium 8.0 L (8.4-10.2) mg/dL Phosphorus 6.2 H (2.5-4.5) mg/dL Urine Appearance (Clear) Urine Protein (Negative) Urine Blood (Negative) Ur Leukocyte Esterase (Negative) Urine RBC (0-5) /hpf Urine WBC (0-5) /hpf Urine WBC Clumps (None) /hpf Ur Squamous Epith Cells (0-4) /hpf Urine Bacteria (None) /hpf Assessment and Plan Plan: Assessment: #1. End-stage renal disease maintained on peritoneal dialysis. #2. Mild fluid overload. #3. Red discoloration of the feet possibly related to cellulitis. Rule out DVT. #4. Chronic kidney disease mineral bone disease. #5. Anemia of chronic kidney disease. #6. Chronic hypotension related to underlying cardiac status. #7. Systolic CHF with ejection fraction of less than 20%. #8. Moderate pulmonary hypertension. Plan: Continue with 2 L exchanges with 2.5% dextrose solution every 6 hours. If doesn't maintain net negative fluid balance, will increase the frequency and use 4.25% solution. Check phosphorus level. Await urinalysis and a urine culture. 1 g IV vancomycin given 12/27. Now on rocephin. Obtain infectious disease recommendations. F/u LE uls results.
[2016-12-28] MEDS ORDERED: LACTULOSE 20 GM/30 ML CUP PO PRN (10:37)
[2016-12-28] MEDS ORDERED: DOCUSATE 100 MG CAP PO PRN (10:38)
[2016-12-28 12:06] LABS: Glucose,Whole Blood 177 mg/dL (75-99)
--- NOTE | 2016-12-28 12:48 | P.PN ---
Subjective Principal diagnosis: Fluid overload This is a pleasant 61-year-old female patient who sees Dr. Nuñez as an outpatient with a past medical history significant for nonischemic cardiomyopathy and status post AICD, end stage renal disease on peroneal dialysis, hypertension, dyslipidemia, as well as multiple comorbid conditions presented to the hospital with progressive dyspnea and bilateral lower extremities edema. The patient stated that she was maintaining care daily peritoneal dialysis and she was compliant with it. She gained significant amount of weight within a few days only. She has been more short of breath in the term of exertional dyspnea. Also she developed severe bilateral lower extremities edema. She denies having any anginal chest discomfort. The cardiac enzymes were checked and came in to be slightly abnormal. Upon presentation to the hospital and during her hospitalization she has been in sinus tachycardia with a resting heart rate around 100. The patient was seen and evaluated by the nephrology service and they recommended some changes on the dialysis fluid and possible increasing in the frequency if the patient did not have any negative fluid balance. Yesterday I did increase the dose of Toprol-XL to 25 mg by mouth daily. I'll follow-up with her today, the heart rate continues to be in the 100 but the blood pressure has been marginally low. From the cardiac vascular standpoint overview, I would continue the current medical treatment and continue following up with the patient. Objective - Vital Signs Vital signs: Vital Signs Temp 97.0 F L 12/28/16 11:30 Pulse 101 H 12/28/16 11:47 Resp 16 12/28/16 11:47 BP 99/62 12/28/16 11:30 Pulse Ox 98 12/28/16 11:30 Intake & Output 12/27/16 12/28/16 12/28/16 18:59 06:59 18:59 Intake Total 340 930 Output Total 10 0 Balance 340 920 0 Weight 75.5 kg 75.5 kg Intake: IV 930 Sodium Chloride 0.9% 1, 930 000 ml @ 30 mls/hr IV . Q24H JENNY Rx#:[id number] Oral 340 Output: Urine 10 0 Other: # Voids 0 0 # Bowel Movements 1 1 - Constitutional General appearance: Present: no acute distress - Respiratory Respiratory: bilateral: rhonchi - Cardiovascular Rhythm: regular Heart sounds: normal: S1, S2 - Labs CBC & Chem 7: 12/28/16 06:35 12/28/16 06:35 Labs: Abnormal Lab Results - Last 24 Hours (Table) 12/27/16 12/27/16 12/27/16 Range/Units 15:43 17:01 20:22 RBC (3.80-5.40) m/uL Hgb (11.4-16.0) gm/dL Hct (34.0-46.0) % Plt Count (150-450) k/uL BUN (7-17) mg/dL Creatinine (0.52-1.04) mg/dL Glucose (74-99) mg/dL POC Glucose (mg/dL) 207 H 165 H 157 H (75-99) mg/dL Calcium (8.4-10.2) mg/dL Phosphorus (2.5-4.5) mg/dL Urine Appearance (Clear) Urine Protein (Negative) Urine Blood (Negative) Ur Leukocyte Esterase (Negative) Urine RBC (0-5) /hpf Urine WBC (0-5) /hpf Urine WBC Clumps (None) /hpf Ur Squamous Epith Cells (0-4) /hpf Urine Bacteria (None) /hpf 12/27/16 12/28/16 12/28/16 Range/Units 23:30 06:15 06:35 RBC (3.80-5.40) m/uL Hgb (11.4-16.0) gm/dL Hct (34.0-46.0) % Plt Count (150-450) k/uL BUN 33 H (7-17) mg/dL Creatinine 7.07 H* (0.52-1.04) mg/dL Glucose 198 H (74-99) mg/dL POC Glucose (mg/dL) 180 H (75-99) mg/dL Calcium 8.0 L (8.4-10.2) mg/dL Phosphorus (2.5-4.5) mg/dL Urine Appearance Turbid H (Clear) Urine Protein 2+ H (Negative) Urine Blood Small H (Negative) Ur Leukocyte Esterase Large H (Negative) Urine RBC 21 H (0-5) /hpf Urine WBC >182 H (0-5) /hpf Urine WBC Clumps Many H (None) /hpf Ur Squamous Epith Cells 40 H (0-4) /hpf Urine Bacteria Few H (None) /hpf 12/28/16 12/28/16 12/28/16 Range/Units 06:35 07:40 11:41 RBC 3.54 L (3.80-5.40) m/uL Hgb 10.7 L (11.4-16.0) gm/dL Hct 33.3 L (34.0-46.0) % Plt Count 141 L (150-450) k/uL BUN (7-17) mg/dL Creatinine (0.52-1.04) mg/dL Glucose (74-99) mg/dL POC Glucose (mg/dL) 177 H (75-99) mg/dL Calcium (8.4-10.2) mg/dL Phosphorus 6.2 H (2.5-4.5) mg/dL Urine Appearance (Clear) Urine Protein (Negative) Urine Blood (Negative) Ur Leukocyte Esterase (Negative) Urine RBC (0-5) /hpf Urine WBC (0-5) /hpf Urine WBC Clumps (None) /hpf Ur Squamous Epith Cells (0-4) /hpf Urine Bacteria (None) /hpf Microbiology - Last 24 Hours (Table) 12/27/16 23:30 Urine Culture - Preliminary Urine,Voided 12/28/16 00:39 Body Fluid Culture - Preliminary Dialysate Assessment and Plan Plan: Assessment Fluid overloaded Severe nonischemic cardiomyopathy Sinus tachycardia End stage renal disease on peritoneal dialysis Multiple comorbid conditions Plan Continue the dialysis per nephrology recommendation Continue the current dose of Toprol-XL Follow-up with the patient
--- NOTE | 2016-12-28 17:01 | CONS ---
DATE OF CONSULTATION: 12/27/2016 REASON FOR CONSULTATION: Bilateral lower extremity cellulitis. HISTORY OF PRESENT ILLNESS: The pa is a 61-year-old female with past medical history significant for endstage renal disease on peritoneal dialysis, also with history of cardiomyopathy with an EF of 20%. The patient is presenting to the ER with chief complaints of increased lower extremity swelling and pain. The patient also has developing painful rash on the dorsum of both feet that has been going on for the last 2 to 3 days. Pain is described to be sharp, 4 to 5 out of 10 and no radiation. There is no skin breakdown. There is no drainage. Patient denies any high-grade fever and chills. The patient also mentioned that she has gained about 6 pounds and she is unable to get a significant amount of fluid through her peritoneal dialysis. She has been complaining of generalized weakness. With these symptoms, the patient has been evaluated by primary who called Nephrology service and medications have been adjusted. She did receive dose of Vancomycin for possible cellulitis and I was asked to see the patient for further recommendations regarding antibiotic therapy. REVIEW OF SYSTEMS: CONSTITUTIONAL: Positive for weakness and denies any high-grade fever. EYES: No complaint. ENT: No complaint. RESPIRATORY: Shortness of breath. CARDIOVASCULAR: As per HPI. GENITOURINARY: No complaint. GASTROINTESTINAL: No complaint. MUSCULOSKELETAL: No complaint. INTEGUMENTARY: As per HPI. PSYCHOLOGIC: No complaint. ENDOCRINE: No complaint. NEUROLOGICAL: No complaint. PAST MEDICAL HISTORY: Hypertension, hyperlipidemia, end-stage renal disease on peritoneal dialysis, chronic anemia, gastroesophageal reflux disease, COPD, history of DVT, atrial fibrillation, congestive heart failure. PAST SURGICAL HISTORY: Adenoidectomy, ICD, cholecystectomy, hysterectomy, pacemaker placement, tonsillectomy and peritoneal dialysis catheter placement. SOCIAL HISTORY: Remote history of smoking, quit drinking back about 25-years ago. No drug use. FAMILY HISTORY: Sister with history of Hodgkin's lymphoma, DVT, COPD in the father. Mother with history of leukemia. ALLERGIES: INFLUENZA VACCINE AND KETOROLAC. Medications include the patient is currently on [place], Ventolin, Xanax, PhosLo, Vitamin D2, iron sulfate, Robitussin, Dilaudid, Humalog, mag oxide, Tapazole, Toprol-XL, Nephrocaps, Narcan, Protonix, Compazine and vancomycin. On examination, her blood pressure is 97/61 with a pulse 113, temperature 96.3. She is 97% on 2-liters nasal cannula. General description is a middle-age female lying in bed in no distress. No tachypnea or accessory muscle of respiration use. HEENT examination shows pallor. There is no scleral icterus. Oral mucous membrane dry. NECK: Trachea central. No thyromegaly. LUNGS: Unlabored breathing. Clear to auscultation anteriorly. HEART: S1, S2 regular rate and rhythm. ABDOMEN: Soft, no tenderness. EXTREMITIES: Bilateral lower extremity about 2+ edema of feet. There is no redness of legs or on the feet. On the dorsum there is erythematous rash. However, it is very cold to touch. No evidence of any No skin breakdown. No drainage. NEUROLOGICAL: The patient is awake, alert, oriented x3. Mood and affect normal. LABS: Hemoglobin is 10.8, white count 8.6 with a BUN of 29, creatinine 8.11. No culture has been obtained. DIAGNOSTIC IMPRESSION AND PLAN: Patient admitted to the hospital with increasing lower extremity swelling in a patient who was having an erythematous rash to the dorsum of both feet; however, the feet are very cold and concern for possible underlying ischemia to be high on the list rather than acute bacterial cellulitis as we should have seen some warmth to it, fever and elevated white count. PLAN: 1. Patient did receive a dose of vancomycin which will stay in her system for the next 48 to 72 hours. 2. Will recommend obtaining arterial Dopplers to assess the circulation in the legs and feet areas. 3. Will follow up on the clinical condition and investigations to further adjust the medication if needed. Thank you for this consultation. We will follow this patient along with you. GLORIA
[2016-12-28 17:13] LABS: Glucose,Whole Blood 134 mg/dL (75-99)
[2016-12-28] MEDS: FERROUS SULFATE 325 MG TAB PO SCH (17:44)
[2016-12-28 20:38] LABS: Glucose,Whole Blood 176 mg/dL (75-99)
[2016-12-28] MEDS: ALPRAZolam 0.5 MG TAB PO SCH (21:53)
[2016-12-28] MEDS: SODIUM CHLORIDE 0.9% 1,000 ML IV SCH (21:53)
[2016-12-28] MEDS: METOPROLOL SUCCINATE (ER) 25 MG TAB.ER.24H PO SCH (21:54)
[2016-12-29] MEDS: DIALYSIS DEX INTRAPERIT SCH ×2 (00:13→06:11)
[2016-12-29] MEDS: HYDROcodone/APAP 10-325MG 1 EACH TAB PO SCH ×5 (01:13→23:58)
[2016-12-29] MEDS: HYDROmorphone 1 MG/ML 1 ML SYRINGE IVP PRN ×4 (01:13→20:20)
[2016-12-29 05:41] LABS: Glucose,Whole Blood 134 mg/dL (75-99)
[2016-12-29] MEDS: INSULIN LISPRO (humaLOG) 300 UNIT/3 ML VIAL SQ SCH ×4 (06:47→17:43)
[2016-12-29] MEDS: CALCIUM ACETATE 667 MG CAP PO SCH ×3 (06:57→17:42)
[2016-12-29] MEDS: METHIMAZOLE 5 MG TAB PO SCH (08:30)
[2016-12-29] MEDS: PANTOPRAZOLE 40 MG/10 ML VIAL IV SCH (08:30)
[2016-12-29] MEDS: TORSEMIDE 20 MG TAB PO SCH (08:30)
[2016-12-29] MEDS: FOLIC ACID-VIT B COMPLEX-VIT C 1 CAP PO SCH (08:30)
[2016-12-29] MEDS: MAGNESIUM OXIDE 400 MG TAB PO SCH ×3 (08:30→23:58)
--- NOTE | 2016-12-29 09:10 | P.PN ---
Subjective Patient is seen in follow-up for end-stage renal disease. She is maintained on peritoneal dialysis. Patient presented with pain in her lower extremities. No issues with peritoneal dialysis overnight. Continues to complain of pain in her lower extremities. Denies any chest pain or shortness of breath. No vomiting or diarrhea. Denies abdominal pain. Vital signs are stable. General: The patient appeared well nourished and normally developed. HEENT: Head exam is unremarkable. Neck is without jugular venous distension. LUNGS: Lungs are clear to auscultation and percussion. Breath sounds decreased. HEART: Rate and Rhythm are regular. First and second heart sounds normal. No murmurs, rubs or gallops. ABDOMEN: Abdominal exam reveals normal bowel sounds. Non-tender and non- distended. No evidence of peritonitis. EXTREMITITES: Trace edema. Erythema noted. Objective - Vital Signs Vital signs: Vital Signs Temp 97.2 F L 12/29/16 08:02 Pulse 98 12/29/16 08:02 Resp 18 12/29/16 08:02 BP 85/50 12/29/16 08:02 Pulse Ox 98 12/29/16 08:02 Intake & Output 12/28/16 12/29/16 12/29/16 18:59 06:59 18:59 Intake Total 240 120 Output Total 0 Balance 240 120 Weight 75.5 kg 76.4 kg Intake: IV 120 Sodium Chloride 0.9% 1, 120 000 ml @ 30 mls/hr IV . Q24H JENNY Rx#:[id number] Oral 240 Output: Urine 0 Other: # Voids 0 # Bowel Movements 1 - Labs CBC & Chem 7: 12/28/16 06:35 12/28/16 06:35 Labs: Abnormal Lab Results - Last 24 Hours (Table) 12/28/16 12/28/16 12/28/16 Range/Units 11:41 16:31 20:36 POC Glucose (mg/dL) 177 H 134 H 176 H (75-99) mg/dL 12/29/16 Range/Units 05:38 POC Glucose (mg/dL) 134 H (75-99) mg/dL Microbiology - Last 24 Hours (Table) 12/27/16 14:53 Blood Culture - Preliminary Blood No Growth after 24 hours 12/28/16 00:39 Gram Stain - Preliminary Dialysate Body Fluid Culture - Preliminary 12/27/16 23:30 Urine Culture - Preliminary Urine,Voided Assessment and Plan Plan: Assessment: #1. End-stage renal disease maintained on peritoneal dialysis. #2. Mild fluid overload. #3. Red discoloration of the feet possibly related to cellulitis. Rule out DVT /ischemia. #4. Chronic kidney disease mineral bone disease. #5. Anemia of chronic kidney disease. #6. Chronic hypotension related to underlying cardiac status. #7. Systolic CHF with ejection fraction of less than 20%. #8. Moderate pulmonary hypertension. Plan: Continue with 2 L exchanges with 2.5% dextrose solution every 6 hours. Will to 2 exchanges with 4.25% solution. Maintain PhosLo with meals. Follow-up urine culture. 1 g IV vancomycin given 12/27. Now on rocephin. F/u LE uls results. Check left hip x-ray as she complains of pain.
--- NOTE | 2016-12-29 09:47 | PN ---
DATE OF SERVICE: 12/28/2016 REASON FOR FOLLOW UP: Bilateral feet redness and question of cellulitis. INTERVAL HISTORY: The patient is afebrile. She is still complaining of pain in the bilateral foot area. She denies significant chest pain. Breathing has improved. No abdominal pain or any diarrhea. On examination, blood pressure is 99/52 with a pulse of 101, temperature 97. She is 98% on 2 L nasal cannula. GENERAL DESCRIPTION: A middle-age female, lying in bed in no distress. RESPIRATORY SYSTEM: Unlabored breathing. Clear to auscultation anteriorly. HEART: S1, S2. Regular rate and rhythm. ABDOMEN: Soft. EXTREMITIES: Bilateral foot on the dorsum still seems to be discolored, red, but is cold to touch. LABS: Hemoglobin is 10.7, white count 6.1, BUN of 33, creatinine 7.07. The patient did have a UA that was positive. Culture is currently pending. DIAGNOSTIC IMPRESSION AND PLAN: 1. Bilateral foot redness, ( ) ischemic foot clinically rather than cellulitis. The patient did receive a dose of vancomycin. It should stay in the system for another 24 to 48 hours. Await arterial Doppler. 2. Positive urinalysis, however, the patient hardly makes any urine. Could be more likely urine staying there for a long time. Patient with no significant new symptoms. Did receive dose of Rocephin. Will hold any further antibiotic therapy. Plan of care discussed with attending physician.
[2016-12-29 11:02] LABS: Calcium 7.9 mg/dL (8.4-10.2); Magnesium 1.6 mg/dL (1.6-2.3); Potassium 4.5 mmol/L (3.5-5.1)
[2016-12-29] MEDS ORDERED: Magnesium Replacement Protocol 1 EACH MISC MISCELLANE PRN (11:26)
[2016-12-29 11:48] LABS: Glucose,Whole Blood 316 mg/dL (75-99)
[2016-12-29] MEDS: MAGNESIUM SULFATE-D5W PMX 1 GM in DEXTROSE/WATER 1 100ML.BAG IVPB SCH ×2 (12:19→14:41)
--- NOTE | 2016-12-29 12:19 | PN ---
61-year-old lady with history of end-stage renal disease on peritoneal dialysis who was admitted to the hospital with acute exacerbation of chronic systolic heart failure and pulmonary hypertension. She also has hypotension and is currently on Midodrine for the same. This morning she has had runs of nonsustained VT and AICD did not go off. Continuing the beta blockers, supplementing the magnesium and resume her Midodrine. On exam today, she is comfortable at rest, afebrile. Heart rate is 90 beats per minute. Blood pressure is 84/50. Respiratory rate 18. Chest exam reveals diminished air entry at the bases. Heart exam reveals first and second heart sounds. No gallop. Exam of extremities reveals trace edema. Peripheral pulses are felt. Labs show that the potassium is 4.5. Creatinine is 7.3. ASSESSMENT: 1. Acute exacerbation of chronic systolic heart failure. 2. End-stage renal disease on peritoneal dialysis. 3. Hypotension. 4. Nonsustained ventricular tachycardia. PLAN: We will continue with the current measures. I supplemented the potassium. We will continue the beta blockers.
[2016-12-29] MEDS ORDERED: MIDODRINE 5 MG TAB PO STA (12:34)
[2016-12-29 12:37] LABS: Glucose,Whole Blood 272 mg/dL (75-99)
[2016-12-29] MEDS: DIALYSIS (PERITONL) DEX 4.25% 2,000 ML INTRAPERIT SCH ×2 (12:53→17:40)
--- NOTE | 2016-12-29 14:07 | PN ---
DATE OF SERVICE: 12/28/2016 CHIEF COMPLAINT: Increased swelling of her lower extremities along with pain. INTERVAL HISTORY: Ms. Ibrahim is a 61-year-old female with a past medical history of COPD, atrial fibrillation and congestive heart failure, stroke/TIA, DVT, GERD, hypertension, hyperlipidemia, chronic kidney disease on peritoneal dialysis coming into the hospital with a chief complaint of increased edema of her lower extremities along with pain. Patient is also having generalized weakness and has also weight gain of almost 6 pounds as she is not able to get a negative fluid balance with peritoneal dialysis. Currently cardiology and nephrology are on board following the patient. Dr. Martínez is managing her peritoneal dialysis. Dr. Goyal was consulted as the patient was showing some signs of lower extremity cellulitis. Today the patient is sitting up in her bed, appears to be no acute distress. She states that her swelling in her extremities is improved but she is still having pain. REVIEW OF SYSTEMS: CONSTITUTIONAL: Denies having any fevers, chills, or rigors. Complains of generalized weakness and tiredness. RESPIRATORY: Positive for difficulty in breathing, which is at her baseline. CARDIOVASCULAR: No chest pain or palpitations. GI: No abdominal pain, nausea, vomiting, or diarrhea. Patient's medications have been reviewed. She is on: 1. [place]. 2. Ventolin. 3. Xanax. 4. PhosLo. 5. Colace. 6. Vitamin D2 supplements. 7. Ferrous sulfate. 8. Robitussin. 9. Dilaudid. 10. Ex-lax. 11. Sliding scale of insulin. 12. Lactulose. 13. Lidocaine gel. 14. Magnesium oxide. 15. Methimazole. 16. Metoprolol. 17. Multivitamin. 18. Nephrocaps. 19. Narcan. 20. Protonix. 21. Compazine. 22. Torsemide. On examination, patient's vital signs, temperature is 97.7, heart rate between 100 to 110, respiratory rate 18, blood pressure 95/56, saturating at 98% on 2 L of nasal cannula. HEAD: Atraumatic, normocephalic. EYES: Mild pallor. No icterus. NECK: No JVD. No thyromegaly. CARDIOVASCULAR: S1, S2 heard. LUNGS: Bilateral breath sounds are positive, slightly diminished at the lower lung bases with a few crackles ( ). ABDOMEN: Soft, nontender. No evidence of peritonitis. EXTREMITIES: Positive for pitting edema bilaterally, extremely tender to touch but no warmth. Cold to touch. Peripheral pulses are difficult to palpate due to edema and pain. SWEATBAND DRUMMER: Alert, awake, oriented x3. No focal deficits. MUSCULOSKELETAL: No joint swelling or deformity. The patient has a small cyst in upper mid back. PSYCHIATRIC: Appropriate mood and affect. The patient's labs: White count is 6.1, hemoglobin is 10.7, platelets of 141, sodium 141, potassium 4.9, chloride 100, bicarb 25, BUN 33, creatinine 7.07. ASSESSMENT AND PLAN: 1. Bilateral lower extremity swelling with pain probably related to her cardiorenal syndrome so we will get ABIs. Discussed with Dr. Goyal, who thinks it is less likely due to cellulitis as there is no warmth and the feet are cold to touch. 2. Fluid overload. 3. Chronic kidney disease on peritoneal dialysis. 4. Anemia of chronic disease. 5. Systolic congestive heart failure with ejection fraction of less than 20% not in acute exacerbation. 6. Moderate pulmonary hypertension. 7. Severe nonischemic cardiomyopathy. 8. Hypertension. 9. Hyperlipidemia. 10. Gastroesophageal reflux disease. 11. History of deep venous thrombosis. 12. History of stroke with right-sided weakness. 13. AICD in place. PLAN: The patient did receive a dose of vancomycin for possible lower extremity cellulitis. She also did receive one dose of ceftriaxone as her urine was cloudy when collected. We have urinalysis and urine culture pending. No signs of peritonitis as of now. The patient did get lower extremity arterial Doppler done the results of which are pending. Overall prognosis is guarded due to chronic medical conditions. Further recommendations to follow depending on the progress of the patient. The patient wants to be a NO CODE. MTDD
[2016-12-29 16:42] LABS: Glucose,Whole Blood 164 mg/dL (75-99)
[2016-12-29] MEDS: FERROUS SULFATE 325 MG TAB PO SCH (17:43)
[2016-12-29] MEDS: SODIUM CHLORIDE 0.9% 1,000 ML IV SCH (18:52)
--- NOTE | 2016-12-29 21:08 | XR ---
EXAMINATION TYPE: XR Hip Limited LT DATE OF EXAM: 12/29/2016 9:02 PM COMPARISON: NONE HISTORY: Left hip pain TECHNIQUE: 2 views FINDINGS: There is mild to moderate atherosclerotic vascular calcification. Proximal femur and hip chad int appear intact. I see no fracture. There is acetabular spurring. There is mild spurring on the fem oral head. IMPRESSION: Mild osteoarthritis. No fracture.
[2016-12-29 21:11] LABS: Glucose,Whole Blood 211 mg/dL (75-99)
[2016-12-29] MEDS: ALPRAZolam 0.5 MG TAB PO SCH (23:58)
[2016-12-29] MEDS: METOPROLOL SUCCINATE (ER) 25 MG TAB.ER.24H PO SCH (23:59)
[2016-12-30] MEDS: INSULIN LISPRO (humaLOG) 300 UNIT/3 ML VIAL SQ SCH ×5 (00:11→21:12)
[2016-12-30] MEDS: HYDROmorphone 1 MG/ML 1 ML SYRINGE IVP PRN ×3 (05:54→21:01)
[2016-12-30] MEDS: DIALYSIS DEX INTRAPERIT SCH ×4 (05:54→17:59)
--- NOTE | 2016-12-30 06:03 | PN ---
DATE OF SERVICE: 12/29/2016 INTERVAL HISTORY: Ms. Ibrahim is a 61-year-old female with a past medical history of COPD, atrial fibrillation, congestive heart failure, EF less than 20%, stroke, TIA, DVT, GERD, hypertension, hyperlipidemia, chronic kidney disease on peritoneal dialysis coming to the hospital with a chief complaint of increased edema of her lower extremities along with pain. Patient was also having generalized weakness and weight gain of almost 6 pounds. She was not able to get a negative fluid balance with peritoneal dialysis. Currently Nephrology on board and Cardiology on board adjusting her peritoneal dialysis and her medications. As there was a concern for lower extremity cellulitis, ID, Dr. Goyal, was consulted. Patient is currently has peritoneal dialysis and has been having negative fluid balance, but still has lower extremity edema. Patient did receive a dose of vancomycin and a dose of ceftriaxone, but Dr. Goyal thinks it is less likely that she has infection so currently she is not on any antibiotics. REVIEW OF SYSTEMS: CONSTITUTIONAL: She denies having any fever, chills, or rigors. Complains of generalized weakness and tiredness. RESPIRATORY; Positive for difficulty in breathing. CARDIOVASCULAR: No chest pain or palpitations. GI: No abdominal pain, nausea, vomiting, or diarrhea. Patient's medications have been reviewed. She is on [place], albuterol, Xanax, calcium acetate, Colace, vitamin D2, ferrous sulfate, Robitussin, Dilaudid, Atarax, sliding scale of insulin, lactulose, lidocaine. magnesium oxide, methimazole, metoprolol, midodrine, multivitamins, Nephrocaps, Protonix, Compazine and Demadex. On examination, patient's vital signs: Temperature is 97.6, heart rate between and 92 and 100, respiratory rate 18, blood pressure 84/57, saturating at 97% on 2 L of nasal cannula. Patient's head is atraumatic, normocephalic. EYES: Positive for mild pallor. No icterus. NECK: No JVD. No thyromegaly. CARDIOVASCULAR: S1, S2 heard. LUNGS: Bilateral breath sounds positive. She has a few crackles on bilateral lower lobes. ABDOMEN: Soft, nontender. Bowel sounds are positive. No evidence of peritonitis. EXTREMITIES: Positive for pitting edema bilaterally. Extremities are warm to touch. Peripheral pulses are difficult to appreciate due to pain and edema. LEAD NITRATE PROCESSOR: She is alert, awake, oriented x3. No focal deficits. MUSCULOSKELETAL: No joint swelling. The patient has a small cyst in her upper midback. PSYCHIATRIC: Appropriate mood and affect. PATIENT'S LABS: Hemoglobin is stable at 10.7, platelets of 141. Sodium 138, potassium 4.5, chloride 99, bicarb 26, BUN 34, creatinine 7.39. ASSESSMENT AND PLAN: 1. Bilateral lower extremity swelling, most likely secondary to cardiorenal syndrome. 2. Fluid overload. 3. Chronic kidney disease on peritoneal dialysis. 4. Anemia of chronic disease. 5. Acute exacerbation of congestive heart failure with ejection fraction less than 20%. 6. Moderate pulmonary hypertension. 7. Severe nonischemic cardiomyopathy. 8. Hypertension. 9. Hyperlipidemia. 10. Gastroesophageal reflux disease. 11. History of deep venous thrombosis in the past. 12. History of stroke with right-sided weakness. 13. AICD in place. PLAN: The plan is to continue the patient on peritoneal dialysis. The patient did get an arterial lower extremity Doppler. The results of which are still pending. Patient did get hip x-ray as she was complaining of left hip pain, which is showing mild osteoarthritis, but no fractures noticed. Overall prognosis is guarded due to chronic medical conditions. The patient wishes to be a NO CODE. Further recommendations depending on the progress of the patient.
[2016-12-30 06:05] LABS: Glucose,Whole Blood 229 mg/dL (75-99)
[2016-12-30] MEDS: CALCIUM ACETATE 667 MG CAP PO SCH ×3 (06:32→17:24)
[2016-12-30] MEDS: PANTOPRAZOLE 40 MG TABLET PO SCH (06:33)
[2016-12-30 08:04] LABS: Basophils # (A) 0.1 k/uL (0-0.2); Basophils % (A) 1 %; CH 29.3; Eosinophils # (A) 0.3 k/uL (0-0.7); Eosinophils % (A) 5 %; HCT 31.9 % (34.0-46.0); HDW 2.87; HGB 10.1 gm/dL (11.4-16.0); Hypochromasia Moderate; Luc # (Auto) 0.22; Luc % (Auto) 3; Lymphocytes # (A) 1.4 k/uL (1.0-4.8); Lymphocytes % (A) 21 %; MCH 30.1 pg (25.0-35.0); MCHC 31.7 g/dL (31.0-37.0); MCV 95.1 fL (80.0-100.0); Mean Platelet Volume 7.9; Monocytes # (A) 0.3 k/uL (0-1.0); Monocytes % (A) 5 %; Neutrophils # (A) 4.4 k/uL (1.3-7.7); Neutrophils % (A) 65 %; RBC 3.35 m/uL (3.80-5.40); RDW 14.7 % (11.5-15.5); WBC 6.7 k/uL (3.8-10.6); WBC (Perox) 7.26
[2016-12-30 08:12] LABS: Calcium 8.4 mg/dL (8.4-10.2); Potassium 5.1 mmol/L (3.5-5.1)
--- NOTE | 2016-12-30 09:21 | P.PN ---
Subjective Patient is seen in follow-up for end-stage renal disease. She is maintained on peritoneal dialysis. Patient presented with pain in her lower extremities. No issues with peritoneal dialysis overnight. Continues to complain of pain in her lower extremities. Denies any chest pain or shortness of breath. No vomiting or diarrhea. Denies abdominal pain. Vital signs are stable. General: The patient appeared well nourished and normally developed. HEENT: Head exam is unremarkable. Neck is without jugular venous distension. LUNGS: Lungs are clear to auscultation and percussion. Breath sounds decreased. HEART: Rate and Rhythm are regular. First and second heart sounds normal. No murmurs, rubs or gallops. ABDOMEN: Abdominal exam reveals normal bowel sounds. Non-tender and non- distended. No evidence of peritonitis. EXTREMITITES: Trace edema. Erythema noted. Objective - Vital Signs Vital signs: Vital Signs Temp 96.2 F L 12/30/16 07:47 Pulse 89 12/30/16 07:47 Resp 20 12/30/16 07:47 BP 94/54 12/30/16 07:47 Pulse Ox 95 12/30/16 07:47 Intake & Output 12/29/16 12/30/16 12/30/16 18:59 06:59 18:59 Intake Total 840 360 0 Balance 840 360 0 Weight 76.9 kg Intake: IV 240 360 Sodium Chloride 0.9% 1, 240 360 000 ml @ 30 mls/hr IV . Q24H [facility] Rx#:[id number] Oral 600 0 - Labs CBC & Chem 7: 12/30/16 06:10 12/30/16 06:10 Labs: Abnormal Lab Results - Last 24 Hours (Table) 12/29/16 12/29/16 12/29/16 Range/Units 10:23 11:46 12:24 RBC (3.80-5.40) m/uL Hgb (11.4-16.0) gm/dL Hct (34.0-46.0) % Plt Count (150-450) k/uL BUN 34 H (7-17) mg/dL Creatinine 7.39 H* (0.52-1.04) mg/dL Glucose 268 H (74-99) mg/dL POC Glucose (mg/dL) 316 H 272 H (75-99) mg/dL Calcium 7.9 L (8.4-10.2) mg/dL 12/29/16 12/29/16 12/30/16 Range/Units 16:41 21:10 06:03 RBC (3.80-5.40) m/uL Hgb (11.4-16.0) gm/dL Hct (34.0-46.0) % Plt Count (150-450) k/uL BUN (7-17) mg/dL Creatinine (0.52-1.04) mg/dL Glucose (74-99) mg/dL POC Glucose (mg/dL) 164 H 211 H 229 H (75-99) mg/dL Calcium (8.4-10.2) mg/dL 12/30/16 12/30/16 Range/Units 06:10 06:10 RBC 3.35 L (3.80-5.40) m/uL Hgb 10.1 L (11.4-16.0) gm/dL Hct 31.9 L (34.0-46.0) % Plt Count 145 L (150-450) k/uL BUN 39 H (7-17) mg/dL Creatinine 7.14 H* (0.52-1.04) mg/dL Glucose 211 H (74-99) mg/dL POC Glucose (mg/dL) (75-99) mg/dL Calcium (8.4-10.2) mg/dL Microbiology - Last 24 Hours (Table) 12/27/16 14:53 Blood Culture - Preliminary Blood No Growth after 48 hours 12/27/16 23:30 Urine Culture - Final Urine,Voided 12/28/16 00:39 Gram Stain - Preliminary Dialysate Body Fluid Culture - Preliminary Assessment and Plan Plan: Assessment: #1. End-stage renal disease maintained on peritoneal dialysis. #2. Mild fluid overload. #3. Red discoloration of the feet possibly related to cellulitis. Rule out DVT /ischemia. #4. Chronic kidney disease mineral bone disease. #5. Anemia of chronic kidney disease. #6. Chronic hypotension related to underlying cardiac status. #7. Systolic CHF with ejection fraction of less than 20%. #8. Moderate pulmonary hypertension. Plan: Continue with 2 L exchanges with 2.5% dextrose solution every 6 hours. Maintain PhosLo with meals. Follow-up urine culture. 1 g IV vancomycin given 12/27. Also received Rocephin this admission. F/u LE uls results.
[2016-12-30] MEDS: HYDROcodone/APAP 10-325MG 1 EACH TAB PO SCH ×4 (09:50→23:59)
[2016-12-30] MEDS: MAGNESIUM OXIDE 400 MG TAB PO SCH ×3 (09:52→21:01)
[2016-12-30] MEDS: METHIMAZOLE 5 MG TAB PO SCH (09:52)
[2016-12-30] MEDS: MIDODRINE 5 MG TAB PO SCH (09:52)
[2016-12-30] MEDS: TORSEMIDE 20 MG TAB PO SCH (09:52)
[2016-12-30] MEDS: FOLIC ACID-VIT B COMPLEX-VIT C 1 CAP PO SCH (09:52)
[2016-12-30 11:35] LABS: Glucose,Whole Blood 179 mg/dL (75-99)
--- NOTE | 2016-12-30 13:22 | PN ---
DATE OF SERVICE: 12/29/2016 REASON FOR FOLLOWUP: 1. Bilateral foot rash/erythema and a question of cellulitis. 2. Question of urinary tract infection. INTERVAL HISTORY: The patient is afebrile. She has been breathing comfortably. No significant chest pain. No abdominal pain. minimal pain in her foot area and some swelling in the legs. There is no skin breakdown. No drainage. On examination, blood pressure is 84/57 with the pulse 101, temperature 97.6. She is 97% on 2 L nasal cannula. General description is a middle-age female lying in bed in no distress. RESPIRATORY SYSTEM: Unlabored breathing. Clear to auscultation anteriorly. HEART: S1, S2. Regular rate and rhythm. ABDOMEN: Soft, no tenderness. Bilateral foot on the dorsum remains to be cold. No skin breakdown. No drainage. LABS: BUN of 34 with creatinine 7.39. Blood culture has been negative. Dialysate fluid is negative. The arterial Doppler report remains to be pending. DIAGNOSTIC IMPRESSION AND PLAN: 1. Patient with pain in bilateral foot area, which are cold and clammy more likely ischemic. Clinically doubt bacterial cellulitis. Awaiting the arterial Dopplers and await vascular surgery evaluation. 2. Patient with positive urine in a patient who is a dialysis patient. Does not urinate. More likely urine staying in bladder for a long time. Does not need any specific antibiotic therapy for the same. MTDD
--- NOTE | 2016-12-30 14:52 | P.PN ---
Subjective Principal diagnosis: CHF, pulmonary hypertension This is a pleasant 61-year-old female patient with a history of end-stage renal disease, systolic congestive heart failure and prior BiV pacemaker placement. She also has hypotension and is currently being treated with Midodrine. She was found to be having nonsustained VT and her metoprolol succinate was increased to 25 mg by mouth daily. She did complain of fluttering in the chest during time of nonsustained VT. she had a brief episode of wide-complex tachycardia unclear whether this is a VT by the rhythm strips. Her blood pressure remains on the low side with readings in the 80s systolic. Nephrology is on consult to manage peritoneal dialysis and is carefully diuresing the patient. Upon examination today, patient is sitting up at the side of the bed. She's had no further complaints of fluttering in her chest. She denies complaints of chest discomfort, orthopnea or PND. Objective - Vital Signs Vital signs: Vital Signs Temp 98.0 F 12/30/16 12:00 Pulse 84 12/30/16 13:02 Resp 18 12/30/16 12:00 BP 85/55 12/30/16 13:02 Pulse Ox 93 L 12/30/16 12:00 Intake & Output 12/29/16 12/30/16 12/30/16 18:59 06:59 18:59 Intake Total 840 360 222 Balance 840 360 222 Weight 76.9 kg Intake: IV 240 360 Sodium Chloride 0.9% 1, 240 360 000 ml @ 30 mls/hr IV . Q24H COUNT INCLUDES THE [facility] Rx#:[id number] Oral 600 222 - Exam PHYSICAL EXAMINATION: HEENT: Head is atraumatic, normocephalic. Pupils equal, round. Neck is supple. There is no elevated jugular venous pressure. HEART EXAMINATION: Heart sounds regular, S1 and S2 normal. No murmur or gallop heard. CHEST EXAMINATION: Lungs reveal diminished air entry bilaterally. No chest wall tenderness is noted on palpation or with deep breathing. ABDOMEN: Soft, nontender. Bowel sounds are heard. No organomegaly noted. EXTREMITIES: 1+ peripheral pulses with evidence of trace peripheral edema and no calf tenderness noted. NEUROLOGIC patient is awake, alert and oriented x3. . - Labs CBC & Chem 7: 12/30/16 06:10 12/30/16 06:10 Labs: Abnormal Lab Results - Last 24 Hours (Table) 12/29/16 12/29/16 12/30/16 Range/Units 16:41 21:10 06:03 RBC (3.80-5.40) m/uL Hgb (11.4-16.0) gm/dL Hct (34.0-46.0) % Plt Count (150-450) k/uL BUN (7-17) mg/dL Creatinine (0.52-1.04) mg/dL Glucose (74-99) mg/dL POC Glucose (mg/dL) 164 H 211 H 229 H (75-99) mg/dL 12/30/16 12/30/16 12/30/16 Range/Units 06:10 06:10 11:33 RBC 3.35 L (3.80-5.40) m/uL Hgb 10.1 L (11.4-16.0) gm/dL Hct 31.9 L (34.0-46.0) % Plt Count 145 L (150-450) k/uL BUN 39 H (7-17) mg/dL Creatinine 7.14 H* (0.52-1.04) mg/dL Glucose 211 H (74-99) mg/dL POC Glucose (mg/dL) 179 H (75-99) mg/dL Microbiology - Last 24 Hours (Table) 12/28/16 00:39 Gram Stain - Preliminary Dialysate Body Fluid Culture - Preliminary 12/27/16 14:53 Blood Culture - Preliminary Blood No Growth after 48 hours 12/27/16 23:30 Urine Culture - Final Urine,Voided Assessment and Plan Plan: Assessment and plan #1 acute on chronic systolic heart failure #[address] #3 hypotension #4 Nonsustained VT Will contact [facility] for device interrogation. Continue current medications at this time. Further recommendations to follow. The above dictated assessment and findings were discussed with signing physician. The impression and plan of care have been directed as dictated. Isabel Hebert, Nurse Practitioner, acting as scribe for signing physician.
[2016-12-30] MEDS: ALBUTEROL NEBULIZED 2.5 MG/3 ML INHALATION PRN (15:42)
--- NOTE | 2016-12-30 16:33 | P.GSCN ---
History of Present Illness History of present illness: 61 old white female, patient with multiple medical problem we were consulted for the pain in her both lower extremity according to patient she has bilateral lower extremity neuropathy and pain for the past 6 months a shunt has history of 4 hypertension, history of chronic renal failure, on peritoneal dialysis history of congestive heart failure, patient has a history of cardiomyopathy and placement of the AICD Surgical history patient had a bladder surgery, cholecystectomy, hysterectomy, peritoneal dialysis catheter for dialysis, Patient was seen in her room she is been complaining of some right hip pain so she has been complaining of some neuropathy and both lower extremity pain which is chronic in nature wrap vascular examination femorals are palpable 1+ bilateral posterior tibial dorsal pedis not palpable patient has some Brown induration of both lower extremity involving the feet no ischemic ulceration noted Physical exam patient has a chronic peripheral vascular disease involving mostly the femoral and infrapopliteal vessels by physical exam Plan is I will discuss with for further workup he will need angiography most likely is CT angiography if patient going home we'll do as an outpatient Past Medical History Past Medical History: Atrial Fibrillation, Chest Pain / Angina, Heart Failure, COPD, CVA/TIA, Deep Vein Thrombosis (DVT), GERD/Reflux, Hyperlipidemia, Hypertension, Memory Impairment, Renal Disease Additional Past Medical History / Comment(s): short term memory impairment;CHF- , UTI with sepsis-septic shock 10/2014; IDDM type II; back pain; neuropathy bilateral feet/legs; osteoporosis;DJD, fx sternum; blood clots/DVT, 2000 CVA with R sided weaknes, chronic kidney disease-peritoneal dialysis, 03/2016 L humerus fx, RLS, paroxysmal AFib, anemia multifactoral, cataracts bilaterally, anemia, rheumatic fever, urinary calculus , C Diff colitis, UTIs, UTI with sepsis/septic shock, chronic abdominal pain, falls. 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 Pt has received blood in past without reaction. Type of Cardiac Device: AICD Device Placement Date:: w Past Psychological History: No Psychological Hx Reported Additional Psychological History / Comment(s): PT LIVES AT HOME WITH HER RAYON TESTER OF 23 YEARS(GABINO). She has a daughter who is very involved with her care. She has [facility] home care nurse and PT/OT. She NO LONGER DRIVES-HER DAUGHTER TAKES HER TO APPTS AND DOES SHOPPING. Pt uses a walker or cane to ambulate most of the time now. Pt has home o2 at 2.5L/NC ATC, a nebilizer, and hospital bed. 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 Adult daughter is very helpful with day- to-day activity and helping her with her CAPD. No animal exposures. No experience. No international travel Smoking Status: Former smoker Past Alcohol Use History: None Reported Additional Past Alcohol Use History / Comment(s): Pt startes smoking in 1964 and quit in 2011 Past Drug Use History: None Reported Additional Drug Use History / Comment(s): Pt has hx of alcoholism. She has not drank alcohol for 25 yrs. - Past Family History Sister(s) Family Medical History: Cancer Additional Family Medical History / Comment(s): SISTER IN HER MID 40'S OF [place] LYMPHOMA. Father Family Medical History: Congestive Heart Failure (CHF), COPD, Deep Vein Thrombosis (DVT) Additional Family Medical History / Comment(s): ETOH ABUSE. FATHER AT AGE 67 OF EMPHYSEMA AND CHF AND ETOH. Mother Family Medical History: Cancer Additional Family Medical History / Comment(s): MOTHER AT AGE 53 YRS OF LEUKEMIA. Medications and Allergies Home Medications Medication Instructions Recorded Confirmed Type Insulin Glargine,Hum.rec.anlog 20 unit SQ HS 08/12/15 12/26/16 History [Lantus Solostar] Ferrous Sulfate [Iron (65 MG 325 mg PO AC-SUPPER 08/13/15 12/26/16 History Elemental)] Ergocalciferol [Vitamin D2 50,000 unit PO TH 04/01/16 12/26/16 History (DRISDOL)] Methimazole 5 mg PO DAILY 04/01/16 12/26/16 History Omeprazole [PriLOSEC] 20 mg PO DAILY PRN 05/10/16 12/26/16 History ALPRAZolam [Xanax] 1 mg PO HS 10/25/16 12/26/16 History Albuterol Nebulized [Ventolin 2.5 mg INHALATION RT-QID 10/25/16 12/26/16 History Nebulized] HYDROcodone/APAP 10-325MG [[place] 1 tab PO Q6H 10/25/16 12/26/16 History 10-325] Lidocaine 4% Cream [Lmx 4] 1 applic TOPICAL BID PRN 10/25/16 12/26/16 History Folic Acid-Vit B Complex-Vit C 1 cap PO DAILY 12/07/16 12/26/16 History [Nephrocaps] hydrOXYzine HCL [Atarax] 25 mg PO BID PRN 12/28/16 12/28/16 History Allergies Allergy/AdvReac Type Severity Reaction Status Date / Time ketorolac tromethamine Allergy Severe Rash/Hives Verified 12/26/16 15:52 [From Toradol] influenza virus vaccine, Allergy Intermediate Swelling Verified 12/26/16 15:52 specific [Influenza Virus Vacc,Specific] Surgical - Exam Vital Signs Temp Pulse Resp BP Pulse Ox 98.0 F 131 H 18 109/67 90 L 12/26/16 15:11 12/26/16 15:11 12/26/16 15:11 12/26/16 15:11 12/26/16 15:11 Results - Labs 12/30/16 06:10 12/30/16 06:10 Abnormal Lab Results - Last 24 Hours (Table) 12/29/16 12/29/16 12/30/16 Range/Units 16:41 21:10 06:03 RBC (3.80-5.40) m/uL Hgb (11.4-16.0) gm/dL Hct (34.0-46.0) % Plt Count (150-450) k/uL BUN (7-17) mg/dL Creatinine (0.52-1.04) mg/dL Glucose (74-99) mg/dL POC Glucose (mg/dL) 164 H 211 H 229 H (75-99) mg/dL 12/30/16 12/30/16 12/30/16 Range/Units 06:10 06:10 11:33 RBC 3.35 L (3.80-5.40) m/uL Hgb 10.1 L (11.4-16.0) gm/dL Hct 31.9 L (34.0-46.0) % Plt Count 145 L (150-450) k/uL BUN 39 H (7-17) mg/dL Creatinine 7.14 H* (0.52-1.04) mg/dL Glucose 211 H (74-99) mg/dL POC Glucose (mg/dL) 179 H (75-99) mg/dL Microbiology - Last 24 Hours (Table) 12/28/16 00:39 Gram Stain - Preliminary Dialysate Body Fluid Culture - Preliminary 12/27/16 14:53 Blood Culture - Preliminary Blood No Growth after 48 hours 12/27/16 23:30 Urine Culture - Final Urine,Voided Diabetes panel 12/30/16 Range/Units 06:10 Sodium 138 (137-145) mmol/L Potassium 5.1 (3.5-5.1) mmol/L Chloride 101 (98-107) mmol/L Carbon Dioxide 24 (22-30) mmol/L BUN 39 H (7-17) mg/dL Creatinine 7.14 H* (0.52-1.04) mg/dL Glucose 211 H (74-99) mg/dL Calcium 8.4 (8.4-10.2) mg/dL Thyroid panel 12/30/16 Range/Units 07:56 TSH 1.520 (0.465-4.680) mIU/L Calcium panel 12/30/16 Range/Units 06:10 Calcium 8.4 (8.4-10.2) mg/dL Pituitary panel 12/30/16 12/30/16 Range/Units 06:10 07:56 Sodium 138 (137-145) mmol/L Potassium 5.1 (3.5-5.1) mmol/L Chloride 101 (98-107) mmol/L Carbon Dioxide 24 (22-30) mmol/L BUN 39 H (7-17) mg/dL Creatinine 7.14 H* (0.52-1.04) mg/dL Glucose 211 H (74-99) mg/dL Calcium 8.4 (8.4-10.2) mg/dL TSH 1.520 (0.465-4.680) mIU/L Adrenal panel 12/30/16 Range/Units 06:10 Sodium 138 (137-145) mmol/L Potassium 5.1 (3.5-5.1) mmol/L Chloride 101 (98-107) mmol/L Carbon Dioxide 24 (22-30) mmol/L BUN 39 H (7-17) mg/dL Creatinine 7.14 H* (0.52-1.04) mg/dL Glucose 211 H (74-99) mg/dL Calcium 8.4 (8.4-10.2) mg/dL
[2016-12-30] MEDS: FERROUS SULFATE 325 MG TAB PO SCH (17:24)
[2016-12-30 17:35] LABS: Glucose,Whole Blood 182 mg/dL (75-99)
[2016-12-30] MEDS: SODIUM CHLORIDE 0.9% 1,000 ML IV SCH (18:33)
--- NOTE | 2016-12-30 18:41 | PN ---
DATE OF SERVICE: 12/30/2016 PRESENTING COMPLAINT: Pain lower extremity. INTERVAL HISTORY: This is a patient with multiple medical problems including on peritoneal dialysis presented with pain and swelling lower extremity. The patient did have an ultrasound, the results for some reason are still pending. Patient tolerating a diet. Having a bowel movement. Does feel weak and tired. Patient dialysate fluid is being adjusted per nephrology. Patient has got chronic shortness of breath for known multiple reasons. Patient also has an element of peripheral neuropathy. Patient also states the lower extremities been having some discoloration. Review of systems done for constitutional, cardiovascular, GI, pulmonary; relevant findings as above. Current medications are reviewed. On examination, temperature 98, pulse 100, respiration 18, blood pressure 108/55, pulse ox 93% on 2 liters. GENERAL APPEARANCE: Sitting at the edge of the bed, not in distress. EYES: Pupils equal. Conjunctivae normal. NECK: JVD unable to assess. Mass not palpable. RESPIRATORY: Effort normal. LUNGS: Diminished breath sounds. CARDIOVASCULAR: First and second sounds normal. Edema present. Some discoloration of the feet. ABDOMEN: Distended, soft. Liver and spleen not palpable. Mild tenderness. No guarding or rigidity. PSYCHIATRY: Alert and oriented x3. Mood and affect slightly low. NEUROLOGICAL: Pupils equal. Cranial nerves grossly intact. INVESTIGATIONS: White count 6.7, hemoglobin 10.1. Potassium 5.1. BUN 39, creatinine 7.14, Accu-Cheks are noted ASSESSMENT: 1. Acute fluid overload, probably from somewhat less ineffective peritoneal dialysis which has been a problem. 2. Chronic obstructive pulmonary disease in an ex-smoker. 3. Chronic congestive heart failure from systolic dysfunction; ejection fraction 20% to 25%. 4. End-stage kidney disease, on peritoneal dialysis. 5. Diabetes mellitus type 2, causing peripheral neuropathy, possibly flare-up of the same. 6. Strongly suspect peripheral artery disease in a patient with multiple problems. 7. Chronic hypoxic respiratory failure, on home oxygen 2.5 liters. 8. Essential hypertension. 9. Hyperlipidemia. 10. Sleep apnea. 11. Restless leg syndrome. 12. Pacemaker. 13. Chronically thrombosed portal vein. 14. Secondary hyperparathyroidism of renal bone disease. 15. Proximal atrial fibrillation. 16. Anemia, multifactorial, including renal disease. 17. Chronic functional abdominal pain. PLAN: I did speak to the nurse to get a hold of the results of the ultrasound and we will also get a vascular opinion. Though, given patient's multiple comorbidities, really any surgical interventions will be difficult and not really much of an option. We will ( ) just get a vascular opinion for lower extremity for possible peripheral artery disease flare-up.
[2016-12-30 20:32] LABS: Glucose,Whole Blood 217 mg/dL (75-99)
[2016-12-30] MEDS: AMIODARONE 200 MG TAB PO SCH (21:00)
[2016-12-30] MEDS: METOPROLOL SUCCINATE (ER) 25 MG TAB.ER.24H PO SCH (21:01)
[2016-12-30] MEDS: ALPRAZolam 0.5 MG TAB PO SCH ×2 (21:07→21:09)
[2016-12-31] MEDS: DIALYSIS DEX INTRAPERIT SCH ×2 (00:08→05:25)
[2016-12-31] MEDS: guaiFENesin-DM 100-10MG/5ML 10 ML CUP PO PRN (00:14)
[2016-12-31] MEDS: HYDROmorphone 1 MG/ML 1 ML SYRINGE IVP PRN (05:09)
[2016-12-31 06:27] LABS: Glucose,Whole Blood 169 mg/dL (75-99)
[2016-12-31] MEDS: HYDROcodone/APAP 10-325MG 1 EACH TAB PO SCH ×3 (06:27→17:05)
[2016-12-31] MEDS: CALCIUM ACETATE 667 MG CAP PO SCH ×3 (06:28→17:06)
[2016-12-31] MEDS: INSULIN LISPRO (humaLOG) 300 UNIT/3 ML VIAL SQ SCH ×4 (06:28→20:54)
[2016-12-31] MEDS: PANTOPRAZOLE 40 MG TABLET PO SCH (06:29)
[2016-12-31 07:49] LABS: Basophils # (A) 0.1 k/uL (0-0.2); Basophils % (A) 1 %; CH 29.3; CHCM 30.9; Eosinophils # (A) 0.4 k/uL (0-0.7); Eosinophils % (A) 6 %; HCT 32.6 % (34.0-46.0); HDW 2.96; HGB 10.2 gm/dL (11.4-16.0); Hypochromasia Moderate; Luc # (Auto) 0.22; Luc % (Auto) 3; Lymphocytes # (A) 1.1 k/uL (1.0-4.8); Lymphocytes % (A) 17 %; MCHC 31.4 g/dL (31.0-37.0); MCV 95.5 fL (80.0-100.0); Mean Platelet Volume 9.4; Monocytes # (A) 0.3 k/uL (0-1.0); Monocytes % (A) 5 %; Neutrophils # (A) 4.5 k/uL (1.3-7.7); Neutrophils % (A) 68 %; RBC 3.41 m/uL (3.80-5.40); RDW 14.8 % (11.5-15.5); WBC 6.6 k/uL (3.8-10.6); WBC (Perox) 7.14
[2016-12-31 08:09] LABS: Calcium 8.7 mg/dL (8.4-10.2); Potassium 5.1 mmol/L (3.5-5.1)
--- NOTE | 2016-12-31 08:49 | P.PN ---
Progress Note - Text 61-year-old white female, history of chronic renal failure on peritoneal dialysis history of coronary artery disease post AICD placement patient has history of peripheral neuropathy patient also history of stroke in the past affecting right side with recovery Femorals are 1+ posterior dorsal pedis not palpable patient has some chronic vascular symptoms is morning she is comfortable mild pain in the lower extremity I have discuss her in detail about her chronic vascular problem she does not want to go for an major surgical intervention according to patient she has only 15% functional heart have discuss about the angiography patient wants wants to wait and she does not want to go for an major surgical intervention if patient goes home we will check follow-up in my office to do some noninvasive study of the both lower extremity patient agreed I will discuss with Colleen morris
[2016-12-31 09:12] LABS: Manual Review Performed
[2016-12-31] MEDS: AMIODARONE 200 MG TAB PO SCH ×2 (10:00→20:24)
[2016-12-31] MEDS: TORSEMIDE 20 MG TAB PO SCH (10:00)
[2016-12-31] MEDS: METHIMAZOLE 5 MG TAB PO SCH (10:05)
[2016-12-31] MEDS: FOLIC ACID-VIT B COMPLEX-VIT C 1 CAP PO SCH (10:05)
[2016-12-31] MEDS: MAGNESIUM OXIDE 400 MG TAB PO SCH ×3 (10:05→20:25)
[2016-12-31] MEDS: MIDODRINE 5 MG TAB PO SCH (10:05)
--- NOTE | 2016-12-31 10:07 | P.PN ---
Subjective Patient is seen in follow-up for end-stage renal disease. She is maintained on peritoneal dialysis. Patient presented with pain in her lower extremities. No issues with peritoneal dialysis overnight. Continues to complain of pain in her lower extremities. Denies any chest pain or shortness of breath. No vomiting or diarrhea. Denies abdominal pain. Her weight has been going up. Vital signs are stable. General: The patient appeared well nourished and normally developed. HEENT: Head exam is unremarkable. Neck is without jugular venous distension. LUNGS: Lungs are clear to auscultation and percussion. Breath sounds decreased. HEART: Rate and Rhythm are regular. First and second heart sounds normal. No murmurs, rubs or gallops. ABDOMEN: Abdominal exam reveals normal bowel sounds. Non-tender and non- distended. No evidence of peritonitis. EXTREMITITES: Trace edema. Erythema noted. Objective - Vital Signs Vital signs: Vital Signs Temp 97.1 F L 12/31/16 08:00 Pulse 120 H 12/31/16 08:00 Resp 18 12/31/16 06:09 BP 116/68 12/31/16 08:00 Pulse Ox 97 12/31/16 08:00 Intake & Output 12/30/16 12/31/16 12/31/16 18:59 06:59 18:59 Intake Total 942 560 90 Output Total 0 Balance 942 560 90 Weight 77.7 kg Intake: IV 240 360 Sodium Chloride 0.9% 1, 240 360 000 ml @ 30 mls/hr IV . Q24H JENNY Rx#:[id number] Oral 702 200 90 Output: Urine 0 Other: # Voids 0 0 - Labs CBC & Chem 7: 12/31/16 07:26 12/31/16 07:26 Labs: Abnormal Lab Results - Last 24 Hours (Table) 12/30/16 12/30/16 12/30/16 Range/Units 11:33 17:14 20:31 RBC (3.80-5.40) m/uL Hgb (11.4-16.0) gm/dL Hct (34.0-46.0) % Plt Count (150-450) k/uL Sodium (137-145) mmol/L BUN (7-17) mg/dL Creatinine (0.52-1.04) mg/dL Glucose (74-99) mg/dL POC Glucose (mg/dL) 179 H 182 H 217 H (75-99) mg/dL 12/31/16 12/31/16 12/31/16 Range/Units 06:25 07:26 07:26 RBC 3.41 L (3.80-5.40) m/uL Hgb 10.2 L (11.4-16.0) gm/dL Hct 32.6 L (34.0-46.0) % Plt Count 52 L D (150-450) k/uL Sodium 135 L (137-145) mmol/L BUN 36 H (7-17) mg/dL Creatinine 6.87 H* (0.52-1.04) mg/dL Glucose 199 H (74-99) mg/dL POC Glucose (mg/dL) 169 H (75-99) mg/dL Microbiology - Last 24 Hours (Table) 12/27/16 14:53 Blood Culture - Preliminary Blood No Growth after 72 hours 12/28/16 00:39 Gram Stain - Preliminary Dialysate Body Fluid Culture - Preliminary Assessment and Plan Plan: Assessment: #1. End-stage renal disease maintained on peritoneal dialysis. #2. Mild fluid overload. #3. Peripheral vascular disease. #4. Chronic kidney disease mineral bone disease. #5. Anemia of chronic kidney disease. #6. Chronic hypotension related to underlying cardiac status. #7. Systolic CHF with ejection fraction of less than 20%. #8. Moderate pulmonary hypertension. Plan: I will change the peritoneal dialysis exchanges to 2 L every 4 hours with 4.25% solution. Maintain PhosLo with meals. Continue Midodrine. Vascular surgery following. Patient does not want any major interventions at this time.
[2016-12-31 10:14] LABS: Prothrombin Time 9.9 sec (9.0-12.0)
--- NOTE | 2016-12-31 10:15 | PN ---
DATE OF SERVICE: 12/30/2016 Reason for followup is bilateral foot discoloration with a question of cellulitis. INTERVAL HISTORY: The patient is afebrile, has been breathing comfortably. Patient denies any significant chest pain, cough or abdominal pain. Still complains of pain in the bilateral foot area. No nausea, no vomiting. On examination, blood pressure is 106/70 with a pulse of 92, temperature 97.8. She is 97% on 2 L nasal cannula. General description is a middle-age female, lying in bed in no distress. RESPIRATORY SYSTEM: Unlabored breathing. Clear to auscultation anteriorly. HEART: S1, S2. Regular rate and rhythm. ABDOMEN: Soft, no tenderness. Bilateral feet appear to be cold, some discoloration but no ulceration. LABS: Hemoglobin is 10.1, white count is 6.7 with a BUN of 39, creatinine is 7.14. DIAGNOSTIC IMPRESSION AND PLAN: 1. Patient with bilateral foot discoloration more likely due to underlying ischemia rather than cellulitis, no need for any antibiotics. 2. Patient's urine culture negative, no need for any antibiotics for the same. Also the peritoneal fluid culture is negative as well. Currently, the patient is not on systemic antibiotic. Will monitor closely off the antibiotics. Continue supportive care.
--- NOTE | 2016-12-31 11:32 | P.ARTDOP ---
Arterial Doppler LOWER EXTREMITY ARTERIAL DOPPLER: DATE OF SERVICE: 12/27/2016 Reason for study: Diabetes and suspected occlusive disease. Doppler waveforms: Multiphasic to the posterior tibial on both sides digital waveforms are significantly blunted.. Pulse volume recording: Mild distal blunting. Pressure gradients: Not really measurable. Ankle-brachial indices: Falsely elevated bilaterally. Impression: Normal proximal study. Significant blunting of digital waveform is probably related to distal disease secondary to diabetes and renal insufficiency. Some degree of vasospastic phenomenon could be in play. Clinical correlation recommended..
[2016-12-31 11:36] LABS: Glucose,Whole Blood 199 mg/dL (75-99)
--- NOTE | 2016-12-31 11:41 | P.PN ---
Subjective Principal diagnosis: CHF This is a pleasant 61-year-old female with known history of end-stage renal disease on peritoneal dialysis, systolic congestive heart failure, prior by the pacemaker, hypotension,non- ischemic cardiomyopathy, prior TIA, prior DVT , hypertension, hyperlipidemia, she mainly presented to the hospital with symptoms of lower extremity edema. Patient states that she had put on over 6 pounds of weight prior to coming to the hospital. Patient is currently on Demadex 60 mg daily, yesterday the patient was noted to have a run of nonsustained ventricular tachycardia and was initiated on oral amiodarone. She has had no further episodes of nonsustained VT since then. Her device was interrogated and is functioning appropriately, she was documented to have 1 run of nonsustained ventricular tachycardia. Blood pressure this morning 110/60 with a heart rate in the 80s. She is 98% on 2 L of oxygen. Hemoglobin today 10.2, potassium 5.1, BUN 36, creatinine 6.8. Patient is being maintained currently on peritoneal dialysis. Objective - Vital Signs Vital signs: Vital Signs Temp 96.7 F L 12/31/16 11:05 Pulse 88 12/31/16 11:05 Resp 18 12/31/16 11:05 BP 110/69 12/31/16 11:05 Pulse Ox 98 12/31/16 11:05 Intake & Output 12/30/16 12/31/16 12/31/16 18:59 06:59 18:59 Intake Total 942 560 90 Output Total 0 Balance 942 560 90 Weight 77.7 kg Intake: IV 240 360 Sodium Chloride 0.9% 1, 240 360 000 ml @ 30 mls/hr IV . Q24H JENNY Rx#:[id number] Oral 702 200 90 Output: Urine 0 Other: # Voids 0 0 - Exam PHYSICAL EXAMINATION: HEENT: Head is atraumatic, normocephalic. Pupils equal, round. Neck is supple. There is no elevated jugular venous pressure. HEART EXAMINATION: Heart S1, S2 normal. No murmur or gallop heard. CHEST EXAMINATION:[ Lungs are clear with decreased air entry bilaterally. ABDOMEN: Soft, nontender. Bowel sounds are heard. No organomegaly noted. EXTREMITIES: 1+ peripheral pulses with trace evidence of peripheral edema and no calf tenderness noted. Bilateral ear erythema noted. NEUROLOGIC patient is awake, alert and oriented -3. . - Labs CBC & Chem 7: 12/31/16 07:26 12/31/16 07:26 Labs: Abnormal Lab Results - Last 24 Hours (Table) 12/30/16 12/30/16 12/30/16 Range/Units 11:33 17:14 20:31 RBC (3.80-5.40) m/uL Hgb (11.4-16.0) gm/dL Hct (34.0-46.0) % Plt Count (150-450) k/uL Sodium (137-145) mmol/L BUN (7-17) mg/dL Creatinine (0.52-1.04) mg/dL Glucose (74-99) mg/dL POC Glucose (mg/dL) 179 H 182 H 217 H (75-99) mg/dL 12/31/16 12/31/16 12/31/16 Range/Units 06:25 07:26 07:26 RBC 3.41 L (3.80-5.40) m/uL Hgb 10.2 L (11.4-16.0) gm/dL Hct 32.6 L (34.0-46.0) % Plt Count 52 L D (150-450) k/uL Sodium 135 L (137-145) mmol/L BUN 36 H (7-17) mg/dL Creatinine 6.87 H* (0.52-1.04) mg/dL Glucose 199 H (74-99) mg/dL POC Glucose (mg/dL) 169 H (75-99) mg/dL Microbiology - Last 24 Hours (Table) 12/27/16 14:53 Blood Culture - Preliminary Blood No Growth after 72 hours 12/28/16 00:39 Gram Stain - Preliminary Dialysate Body Fluid Culture - Preliminary Assessment and Plan (1) Systolic CHF, acute on chronic Status: Acute (2) Hypotension Status: Acute (3) NSVT (nonsustained ventricular tachycardia) Status: Acute (4) Chronic a-fib Status: Acute (5) AICD (automatic cardioverter/defibrillator) present Status: Acute (6) End-stage renal disease on peritoneal dialysis Status: Acute (7) NICM (nonischemic cardiomyopathy) Status: Acute (8) Diabetes mellitus Status: Chronic Plan: From cardiology's perspective, we will recommend to continue the patient on amiodarone 400 mg by mouth twice a day for 2 more days and we will decrease the dose to 200 mg one tablet by mouth twice a day, continue other medications. DNP note has been reviewed, I agree with a documented findings and plan of care. Patient was seen and examined.
[2016-12-31] MEDS: DIALYSIS (PERITONL) DEX 4.25% 2,000 ML INTRAPERIT SCH ×3 (11:48→20:22)
[2016-12-31 16:49] LABS: Glucose,Whole Blood 296 mg/dL (75-99)
[2016-12-31] MEDS: FERROUS SULFATE 325 MG TAB PO SCH (17:06)
[2016-12-31] MEDS: SODIUM CHLORIDE 0.9% 1,000 ML IV SCH (19:58)
[2016-12-31] MEDS: PREGABALIN 25 MG CAP PO SCH (20:25)
[2016-12-31] MEDS: METOPROLOL SUCCINATE (ER) 25 MG TAB.ER.24H PO SCH (20:25)
[2016-12-31] MEDS: ALPRAZolam 0.5 MG TAB PO SCH (20:30)
[2016-12-31 20:35] LABS: Glucose,Whole Blood 212 mg/dL (75-99)
--- NOTE | 2016-12-31 23:10 | PN ---
DATE OF SERVICE: 12/31/2016 PRESENTING COMPLAINT: Tired. INTERVAL HISTORY: This patient with multiple medical problems continues on peritoneal dialysis that is being followed by Dr. Martínez. The patient also got a lower extremity pain felt to be from peripheral artery disease. Really she not a candidate for surgical intervention, nor does she want anything because of overall multiple medical problems and poor cardiac status. This is also reflected notes of Dr. Hogan from vascular surgery. Otherwise, the patient is tolerating a diet. Patient also has peripheral neuropathy. Review of systems done for constitutional, cardiovascular, GI, pulmonary; relevant findings as above. Current medications are reviewed. On examination, temperature 96.7, pulse 94, respiration 18, blood pressure 110/69, pulse ox 98% on 2L. GENERAL APPEARANCE: Lying in bed, not in distress. EYES: Pupils equal. Conjunctivae normal. NECK: JVD not raised. Mass not palpable. RESPIRATORY: Effort normal. LUNGS: Diminished breath sounds. CARDIOVASCULAR: First and second sounds normal. Some edema is present. ABDOMEN: Distended, soft. Liver and spleen not palpable. PSYCHIATRY: Alert and oriented x3. Mood and affect were normal. INVESTIGATIONS: White count 6.6, hemoglobin 10.2. Potassium 5.1. Accu-Cheks are noted. ASSESSMENT: 1. Acute fluid overload, probably from somewhat ineffective peritoneal dialysis, getting better. 2. Chronic obstructive pulmonary disease in an ex-smoker. 3. Chronic congestive heart failure from systolic dysfunction; ejection fraction 20% to 25%. 4. End-stage kidney disease, on peritoneal dialysis. 5. 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 6. Peripheral artery disease in a patient with multiple vasculopathy, including a stroke and heart trouble, not a candidate for any surgical intervention because of overall poor functional status. 7. Chronic hypoxic respiratory failure on home oxygen 2.5L. 8. Essential hypertension. 9. Hyperlipidemia. 10. Sleep apnea. 11. Restless leg syndrome. 12. Pacemaker. 13. Chronically thrombosed portal vein. 14. Secondary hyperparathyroidism of renal bone disease. 15. Paroxysmal atrial fibrillation. 16. Anemia, multifactorial, including from chronic renal disease. 17. Chronic functional abdominal pain. PLAN: Will add a very small dose of Lyrica 25 mg to see if that helps with the lower extremity pain, Otherwise, given multiple problems, the patient's overall prognosis is guarded. Follow.
[2017-01-01] MEDS: DIALYSIS (PERITONL) DEX 4.25% 2,000 ML INTRAPERIT SCH ×4 (00:41→12:16)
[2017-01-01] MEDS: HYDROcodone/APAP 10-325MG 1 EACH TAB PO SCH ×3 (01:28→13:37)
[2017-01-01 06:21] LABS: Glucose,Whole Blood 327 mg/dL (75-99)
[2017-01-01] MEDS: CALCIUM ACETATE 667 MG CAP PO SCH ×2 (06:22→11:50)
[2017-01-01] MEDS: INSULIN LISPRO (humaLOG) 300 UNIT/3 ML VIAL SQ SCH ×2 (06:22→11:50)
[2017-01-01] MEDS: PANTOPRAZOLE 40 MG TABLET PO SCH (06:23)
[2017-01-01] MEDS: PREGABALIN 25 MG CAP PO SCH (08:23)
[2017-01-01] MEDS: TORSEMIDE 20 MG TAB PO SCH (08:23)
[2017-01-01] MEDS: METHIMAZOLE 5 MG TAB PO SCH (08:23)
[2017-01-01] MEDS: AMIODARONE 200 MG TAB PO SCH (08:25)
[2017-01-01] MEDS: MAGNESIUM OXIDE 400 MG TAB PO SCH (08:25)
[2017-01-01] MEDS: MIDODRINE 5 MG TAB PO SCH (08:25)
[2017-01-01] MEDS: FOLIC ACID-VIT B COMPLEX-VIT C 1 CAP PO SCH (08:26)
[2017-01-01] MEDS ORDERED: ERGOCALCIFEROL 50,000 UNIT CAP PO SCH (09:00)
--- NOTE | 2017-01-01 09:47 | P.PN ---
Subjective Patient is seen in follow-up for end-stage renal disease. She is maintained on peritoneal dialysis. Patient presented with pain in her lower extremities. No issues with peritoneal dialysis overnight. She is currently on 4.5% exchanges and is maintaining a net negative fluid balance. Continues to complain of pain in her lower extremities. Denies any chest pain or shortness of breath. No vomiting or diarrhea. Denies abdominal pain. Heart rate is now trending down. Vital signs are stable. General: The patient appeared well nourished and normally developed. HEENT: Head exam is unremarkable. Neck is without jugular venous distension. LUNGS: Lungs are clear to auscultation and percussion. Breath sounds decreased. HEART: Rate and Rhythm are regular. First and second heart sounds normal. No murmurs, rubs or gallops. ABDOMEN: Abdominal exam reveals normal bowel sounds. Non-tender and non- distended. No evidence of peritonitis. EXTREMITITES: Trace edema. Erythema noted. Objective - Vital Signs Vital signs: Vital Signs Temp 97.2 F L 01/01/17 08:20 Pulse 83 01/01/17 08:44 Resp 16 01/01/17 08:44 BP 100/58 01/01/17 08:20 Pulse Ox 95 01/01/17 08:20 Intake & Output 12/31/16 01/01/17 01/01/17 18:59 06:59 18:59 Intake Total 450 560 80 Balance 450 560 80 Weight 76.4 kg Intake: IV 360 Sodium Chloride 0.9% 1, 360 000 ml @ 30 mls/hr IV . Q24H JENNY Rx#:[id number] Intake, IV Titration 150 Amount Sodium Chloride 0.9% 1, 150 000 ml @ 30 mls/hr IV . Q24H JENNY Rx#:[id number] Oral 300 200 80 Other: # Voids 0 0 - Labs CBC & Chem 7: 12/31/16 07:26 12/31/16 07:26 Labs: Abnormal Lab Results - Last 24 Hours (Table) 12/31/16 12/31/16 12/31/16 Range/Units 11:27 16:27 20:34 POC Glucose (mg/dL) 199 H 296 H 212 H (75-99) mg/dL 01/01/17 Range/Units 06:10 POC Glucose (mg/dL) 327 H (75-99) mg/dL Microbiology - Last 24 Hours (Table) 12/27/16 14:53 Blood Culture - Preliminary Blood No Growth after 96 hours 12/28/16 00:39 Gram Stain - Preliminary Dialysate Body Fluid Culture - Preliminary Assessment and Plan Plan: Assessment: #1. End-stage renal disease maintained on peritoneal dialysis. #2. Mild fluid overload. #3. Peripheral vascular disease. #4. Chronic kidney disease mineral bone disease. #5. Anemia of chronic kidney disease. #6. Chronic hypotension related to underlying cardiac status. #7. Systolic CHF with ejection fraction of less than 20%. #8. Moderate pulmonary hypertension. #9. 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 Hematology following. Plan: Continue with current peritoneal dialysis exchanges - 2 L every 4 hours with 4.25% solution. Maintain PhosLo with meals. Continue Midodrine. Vascular surgery following. Patient does not want any major interventions at this time. Stable to be discharged home from nephrology standpoint.
--- NOTE | 2017-01-01 10:49 | PCN ---
DATE OF PROCEDURE: This patient had pulse volume recording of both lower extremities. The right iliofemoral has mild pressure gradient noted. The patient has ( ) disease and the patient also has medial calcinosis. Toe pressures are increased and the patient has a lot of motion to measure the pressure on the right foot. The patient has on the left side, the patient has inflow occlusive disease involving the iliac and femoral artery and also the patient has infrapopliteal occlusive disease with unable to obtain any toe pressure on the left foot suggestive of severe infrapopliteal occlusive ( ) and left side has iliofemoral occlusive disease.
[2017-01-01 11:43] LABS: Glucose,Whole Blood 244 mg/dL (75-99)
[2017-01-01] MEDS: HYDROmorphone 1 MG/ML 1 ML SYRINGE IVP PRN (11:57)
[2017-01-01 13:01] VITALS: BP 87/57; PULSE 90; TEMP 97.6
--- NOTE | 2017-01-01 13:13 | P.PN ---
Subjective Principal diagnosis: CHF This is a pleasant 61-year-old female with known history of end-stage renal disease on peritoneal dialysis, systolic congestive heart failure, prior by the pacemaker, hypotension,non- ischemic cardiomyopathy, prior TIA, prior DVT , hypertension, hyperlipidemia, she mainly presented to the hospital with symptoms of lower extremity edema. Patient stated that she had put on over 6 pounds of weight prior to coming to the hospital. Patient is currently on Demadex 60 mg daily, patient overall is feeling well, denies any overt shortness of breath, denies any chest discomfort. No lab data available today. Patient being transferred to the medical surgical unit. Objective - Vital Signs Vital signs: Vital Signs Temp 97.6 F 01/01/17 12:23 Pulse 90 01/01/17 12:23 Resp 16 01/01/17 12:23 BP 87/57 01/01/17 12:23 Pulse Ox 95 01/01/17 09:10 Intake & Output 12/31/16 01/01/17 01/01/17 18:59 06:59 18:59 Intake Total 450 560 80 Balance 450 560 80 Weight 76.4 kg Intake: IV 360 Sodium Chloride 0.9% 1, 360 000 ml @ 30 mls/hr IV . Q24H JENNY Rx#:[id number] Intake, IV Titration 150 Amount Sodium Chloride 0.9% 1, 150 000 ml @ 30 mls/hr IV . Q24H JENNY Rx#:[id number] Oral 300 200 80 Other: # Voids 0 0 - Exam PHYSICAL EXAMINATION: HEENT: Head is atraumatic, normocephalic. Pupils equal, round. Neck is supple. There is no elevated jugular venous pressure. HEART EXAMINATION: Heart S1, S2 normal. No murmur or gallop heard. CHEST EXAMINATION:[ Lungs are clear with decreased air entry bilaterally. ABDOMEN: Soft, nontender. Bowel sounds are heard. No organomegaly noted. EXTREMITIES: 1+ peripheral pulses with trace evidence of peripheral edema and no calf tenderness noted. Bilateral ear erythema noted. NEUROLOGIC patient is awake, alert and oriented -3. . - Labs CBC & Chem 7: 12/31/16 07:26 12/31/16 07:26 Labs: Abnormal Lab Results - Last 24 Hours (Table) 12/31/16 12/31/16 01/01/17 Range/Units 16:27 20:34 06:10 POC Glucose (mg/dL) 296 H 212 H 327 H (75-99) mg/dL 01/01/17 Range/Units 11:42 POC Glucose (mg/dL) 244 H (75-99) mg/dL Microbiology - Last 24 Hours (Table) 12/28/16 00:39 Gram Stain - Final Dialysate Body Fluid Culture - Final 12/27/16 14:53 Blood Culture - Preliminary Blood No Growth after 96 hours Assessment and Plan (1) Systolic CHF, acute on chronic Status: Acute (2) Hypotension Status: Acute (3) NSVT (nonsustained ventricular tachycardia) Status: Acute (4) Chronic a-fib Status: Acute (5) AICD (automatic cardioverter/defibrillator) present Status: Acute (6) End-stage renal disease on peritoneal dialysis Status: Acute (7) NICM (nonischemic cardiomyopathy) Status: Acute (8) Diabetes mellitus Status: Chronic Plan: From cardiology's perspective, we will recommend to continue the patient on amiodarone 400 mg by mouth twice a day for 1 more days and we will decrease the dose to 200 mg one tablet by mouth twice a day, continue other medications. We will follow this patient with you now on an as-needed basis only, please don't hesitate to call with any questions. DNP note has been reviewed, I agree with a documented findings and plan of care. Patient was seen and examined.
[2017-01-01 14:56] VITALS: RESP 19
--- NOTE | 2017-01-01 20:16 | P.CONS ---
History of Present Illness - Reason for Consult Consult date: 01/01/17 Thrombocytopenia and anemia - History of Present Illness The patient is a 61-year-old lady with multiple medical problems. She has a known history of end-stage renal disease on peritoneal dialysis. The patient had presented to the hospital as she was developing redness discoloration of her feet with increasing pain as well as some numbness. She had also noted weight gain, with the urinary discomfort and frequency. She did receive a dose of vancomycin for possible cellulitis, but antibiotics were subsequently discontinued by infectious diseases. It was felt that her symptoms were due to vaso-occlusive disease. She was then evaluated by vascular surgery, with arterial Dopplers confirming severe vaso-occlusive disease on the left, as well as likely on the right, though evaluation of the right was hampered by patient motion. The chest x-ray was negative other than a small pleural effusion. The patient has very poor ejection fraction at about 20%, and tachycardia. She was felt to be a very high-risk candidate for major vascular intervention. After discussion of risks and benefit, the patient herself also declined any major interventions at this time. On admission and updated count had been normal at 186. Subsequently dropped to 141 and was then 145 on 12/30. Yesterday it had dropped to 52. Consult was therefore placed for further evaluation and recommendations. She also has a mild normochromic normocytic anemia with hemoglobin in the 10-11 range. A multiple labs, as well as imaging studies in the ear chart were reviewed. Computed tomography scan of the abdomen and pelvis in 04/26 and 05/27 had shown a somewhat small liver suspicious for cirrhotic change. Ultrasound of the abdomen in 08/26 had shown evidence of portal vein thrombosis that appeared to be chronic. Review previous labs had shown mildly low platelet counts in the 100-150 range in 11/28, 06/27, as well as 03/27. In 04/25 it had been as low as 68 transiently. During all these episodes, platelet count did subsequently recover back to normal. Anemia also appears to be mostly chronic with hemoglobin in the 10-12 range, with occasional increases into the normal range. No obvious bleeding has been noted. Per my discussion with nursing, there doesn't appear to have been any exposure to heparin during this visit. Review of Systems Constitutional: Reports fatigue, Reports weight gain Eyes: denies blurred vision, denies pain Ears: deny: decreased hearing, ear discharge, earache, tinnitus Ears, nose, mouth and throat: Denies headache, Denies sore throat Cardiovascular: Reports leg edema, Reports rapid heart beat, Reports shortness of breath Respiratory: Reports dyspnea Gastrointestinal: Denies abdominal pain, Denies diarrhea, Denies nausea, Denies vomiting Genitourinary: Reports urinary frequency Menstruation: Reports postmenopausal Musculoskeletal: Reports muscle weakness Musculoskeletal: bilateral: foot pain, foot swelling Integumentary: Reports color changes Neurological: Reports weakness Psychiatric: Denies anxiety, Denies depression Endocrine: Reports weight change Hematologic/Lymphatic: Reports as per HPI Past Medical History Past Medical History: Atrial Fibrillation, Chest Pain / Angina, Heart Failure, COPD, CVA/TIA, Deep Vein Thrombosis (DVT), GERD/Reflux, Hyperlipidemia, Hypertension, Memory Impairment, Renal Disease Additional Past Medical History / Comment(s): short term memory impairment;CHF- , UTI with sepsis-septic shock 10/2014; IDDM type II; back pain; neuropathy bilateral feet/legs; osteoporosis;DJD, fx sternum; blood clots/DVT, 2000 CVA with R sided weaknes, chronic kidney disease-peritoneal dialysis, 03/2016 L humerus fx, RLS, paroxysmal AFib, anemia multifactoral, cataracts bilaterally, anemia, rheumatic fever, urinary calculus , C Diff colitis, UTIs, UTI with sepsis/septic shock, chronic abdominal pain, falls. 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 Pt has received blood in past without reaction. 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 She has a daughter who is very involved with her care. She has [facility] home care nurse and PT/OT. She NO LONGER DRIVES-HER DAUGHTER TAKES HER TO APPTS AND DOES SHOPPING. Pt uses a walker or cane to ambulate most of the time now. Pt has home o2 at 2.5L/NC ATC, a nebilizer, and hospital bed. 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 Adult daughter is very helpful with day- to-day activity and helping her with her CAPD. No animal exposures. No experience. No international travel Smoking Status: Former smoker Past Alcohol Use History: None Reported Additional Past Alcohol Use History / Comment(s): Pt startes smoking in 1965 and quit in 2011 Past Drug Use History: None Reported Additional Drug Use History / Comment(s): Pt has hx of alcoholism. She has not drank alcohol for 25 yrs. - Past Family History Sister(s) Family Medical History: Cancer Additional Family Medical History / Comment(s): SISTER IN HER MID 40'S OF [place] LYMPHOMA. Father Family Medical History: Congestive Heart Failure (CHF), COPD, Deep Vein Thrombosis (DVT) Additional Family Medical History / Comment(s): ETOH ABUSE. FATHER AT AGE 67 OF EMPHYSEMA AND CHF AND ETOH. Mother Family Medical History: Cancer Additional Family Medical History / Comment(s): MOTHER AT AGE 53 YRS OF LEUKEMIA. Medications and Allergies Home Medications Medication Instructions Recorded Confirmed Type Insulin Glargine,Hum.rec.anlog 20 unit SQ HS 08/12/15 12/26/16 History [Lantus Solostar] Ferrous Sulfate [Iron (65 MG 325 mg PO AC-SUPPER 08/13/15 12/26/16 History Elemental)] Ergocalciferol [Vitamin D2 50,000 unit PO TH 04/01/16 12/26/16 History (DRISDOL)] Methimazole 5 mg PO DAILY 04/01/16 12/26/16 History Omeprazole [PriLOSEC] 20 mg PO DAILY PRN 05/10/16 12/26/16 History ALPRAZolam [Xanax] 1 mg PO HS 10/25/16 12/26/16 History Albuterol Nebulized [Ventolin 2.5 mg INHALATION RT-QID 10/25/16 12/26/16 History Nebulized] HYDROcodone/APAP 10-325MG [[place] 1 tab PO Q6H 10/25/16 12/26/16 History 10-325] Lidocaine 4% Cream [Lmx 4] 1 applic TOPICAL BID PRN 10/25/16 12/26/16 History Folic Acid-Vit B Complex-Vit C 1 cap PO DAILY 12/07/16 12/26/16 History [Nephrocaps] hydrOXYzine HCL [Atarax] 25 mg PO BID PRN 12/28/16 12/28/16 History Allergies Allergy/AdvReac Type Severity Reaction Status Date / Time ketorolac tromethamine Allergy Severe Rash/Hives Verified 12/26/16 15:52 [From Toradol] influenza virus vaccine, Allergy Intermediate Swelling Verified 12/26/16 15:52 specific [Influenza Virus Vacc,Specific] Physical Exam Vitals: Vital Signs Temp Pulse Pulse Resp BP BP BP 01/01/17 14:56 19 01/01/17 12:23 97.6 F 90 16 87/57 01/01/17 09:10 97.1 F L 86 18 119/73 01/01/17 08:44 83 16 01/01/17 08:20 97.2 F L 83 16 100/58 01/01/17 07:48 97.2 F L 83 16 84/52 01/01/17 05:15 97.3 F L 76 18 85/52 01/01/17 04:00 97.3 F L 76 18 85/52 01/01/17 01:25 97.9 F 78 18 90/59 01/01/17 00:00 97.9 F 78 18 87/57 90/59 12/31/16 20:55 98.1 F 86 18 95/66 12/31/16 20:00 98.1 F 86 18 95/66 Pulse Ox 01/01/17 14:56 94 L 01/01/17 12:23 01/01/17 09:10 95 01/01/17 08:44 01/01/17 08:20 95 01/01/17 07:48 95 01/01/17 05:15 90 L 01/01/17 04:00 90 L 01/01/17 01:25 93 L 01/01/17 00:00 93 L 12/31/16 20:55 96 12/31/16 20:00 96 Intake and Output 01/01/17 01/01/17 01/01/17 06:59 14:59 22:59 Intake Total 560 80 Balance 560 80 Intake: IV 360 Sodium Chloride 0.9% 1, 360 000 ml @ 30 mls/hr IV . Q24H JENNY Rx#:[id number] Oral 200 80 Other: # Voids 0 # Bowel Movements 0 Weight 76.4 kg - Constitutional General appearance: no acute distress - EENT Eyes: EOMI, PERRLA ENT: hearing grossly normal, normal oropharynx - Neck Neck: no lymphadenopathy Thyroid: bilateral: normal size - Respiratory Respiratory: bilateral: CTA - Cardiovascular Rhythm: regular Heart sounds: normal: S1, S2 Abnormal Heart Sounds: S3 Gallop - Gastrointestinal General gastrointestinal: normal bowel sounds, soft - Integumentary Integumentary: calor (Erythema, with scattered petechial type rash noted on both feet extending from the ankles to the toes) - Neurologic Neurologic: CNII-XII intact - Musculoskeletal Mild swelling, with color changes in the distal lower extremity starting from above the ankle and extending to the toes bilaterally. The skin in this area is very cold to touch with no pulses palpable. It is also quite tender. Musculoskeletal: generalized weakness - Psychiatric Psychiatric: A&O x's 3, appropriate affect Results CBC & Chem 7: 12/31/16 07:26 12/31/16 07:26 Labs: Abnormal Lab Results - Last 24 Hours (Table) 12/31/16 01/01/17 01/01/17 Range/Units 20:34 06:10 11:42 POC Glucose (mg/dL) 212 H 327 H 244 H (75-99) mg/dL Microbiology - Last 24 Hours (Table) 12/27/16 14:53 Blood Culture - Preliminary Blood No Growth after 120 hours 12/28/16 00:39 Gram Stain - Final Dialysate Body Fluid Culture - Final Comments: Arterial Doppler report reviewed Chest x-ray: report reviewed CT scan - abdomen: report reviewed CT scan - pelvis: report reviewed US - abdomen: report reviewed Assessment and Plan (1) Thrombocytopenia Narrative/Plan: This appears to be a chronic intermittent finding as noted in the HPI. Based on her clinical picture, the likely etiology is are splenic sequestration. The patient likely has some degree of splenic congestion, given chronic portal vein thrombosis. In this situation, increased congestion from fluid overload can cause increased splenic sequestration. Once additional condition is relieved, platelets are likely to recover. Another strong possibility in this patient could be increased consumption related to developing ischemic changes in bilateral lower extremities. If ischemia progresses, with progression to overt gangrene, platelet counts can be further affected. The case was discussed in detail with the nephrology service. At this time the patient counts are in a safe range. There was no history of any exposure to heparin. Given the acute drop, other conditions such as deficiency states are unlikely. The labs showed prior workup for paraproteinemia that was also negative. Therefore additional labs are not required at this time. From our standpoint patient can be discharged home. She will need monitoring of her CBC in the outpatient setting. That is being done on a regular basis anyway by nephrology. Status: Acute (2) Anemia Narrative/Plan: Anemia is fairly mild and has stabilize. There is no evidence of any overt bleeding. Anemia workup during her prior admissions has been negative. This appears to be most consistent with anemia of chronic kidney disease. Given overall safe levels, no acute intervention is required. Again anemia may worsen due to increasing inflammation if her lower extremity ischemia progresses. Status: Acute
--- NOTE | 2017-01-04 14:16 | DS ---
DATE OF ADMISSION: 12/26/2016 DATE OF DISCHARGE: 01/01/2017 FINAL DIAGNOSES: 1. Acute fluid overload from ineffective peritoneal dialysis, present on admission. 2. Chronic obstructive pulmonary disease in an ex-smoker. 3. Chronic congestive heart failure from systolic dysfunction; ejection rate 20% to 25%. 4. End-stage kidney disease, on peritoneal dialysis. 5. Diabetes mellitus type 2, causing peripheral neuropathy with acute flare-up. 6. Peripheral arterial disease in a patient with multiple vasculopathy, including stroke, heart disease. 7. Chronic hypoxic respiratory failure on home oxygen 2.5 L from underlying chronic obstructive pulmonary disease. 8. Essential hypertension. 9. Hyperlipidemia. 10. Sleep apnea. 11. Restless leg syndrome. 12. Pacemaker. 13. Chronically thrombosed portal vein. 14. Secondary hyperparathyroidism or renal bone disease. 15. Paroxysmal atrial fibrillation. 16. Anemia, multifactorial including from chronic renal disease. 17. Chronic functional abdominal pain. 18. 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 CONSULTATION: 1. Dr. Oliveira from Oncology. 2. Dr. Tylor Ho from Cardiology. 3. Dr. Martínez from Nephrology. 4. Dr. Hogan from Vascular Surgery. 5. Dr. Carter from Cardiology. HOSPITAL COURSE: This patient presented with fluid overload and also pain in the lower extremity Doppler studies did indicate evidence of peripheral artery disease but given patient's poor cardiac status and functional and patient has not been cleared for any intervention. Simply Lyrica was added for some peripheral neuropathy, pain. Patient's overall prognosis is guarded with her multiple comorbidities. Patient dialysate fluid was adjusted by Dr. Martínez from Nephrology. Day of discharge. LUNGS: Decreased breath sounds. CARDIOVASCULAR: First and second sounds, decreased edema. Patient is tolerating a diet. Having a bowel movement. DISCHARGE MEDICATIONS: 1. Lantus 20 units subQ q.h.s. 2. Iron 325 p.o. with supper. 3. Demadex 60 mg p.o. daily. 4. Vitamin D2 fifty thousand units on . 5. Methimazole 5 mg p.o. daily. 6. Prilosec 20 mg p.o. daily. 7. Magnesium oxide 250 mg p.o. t.i.d. 8. Xanax 1 mg p.o. q.h.s. 9. Ventolin 2.5 q.i.d. 10. Bliss 10 one tablet q.6. 11. Lidocaine 4% cream topical b.i.d. p.r.n. 12. Midodrine 5 mg p.o. daily. 13. Nephrocaps 1 capsule p.o. daily. 14. PhosLo 667 mg p.o. daily with meals. 15. Atarax 25 mg p.o. b.i.d. p.r.n. 16. Cordarone 200 mg p.o. b.i.d. 17. Toprol-XL 25 mg p.o. q.h.s. 18. Lyrica 25 mg p.o. daily. Additionally, patient has episode of nonsustained V. tach, for which amiodarone was added by Dr. Tylor Ho. Follow up with Dr. Kothari on 01/07/2017; Dr. Tylor Ho 01/09/2017 and with Nephrology appointment as before.
== END 2017-01-01 16:04 | disposition home health service (06) | DRG 291 ==
LOC: EC 15:07 → 6SEL 18:40 → 4MS4W 01-01 11:19
PROVIDERS: ADMIT Hospitalist; ATTEND Hospitalist
PROC: 3E1M39Z Irrigation of Peritoneal Cavity using Dialysate, Percutaneous Approach (ICD-10-PCS; principal; 2016-12-26)
PROC: B44HZZZ Ultrasonography of Bilateral Lower Extremity Arteries (ICD-10-PCS; 2016-12-27)
PROC: 4B02XTZ Measurement of Cardiac Defibrillator, External Approach (ICD-10-PCS; 2016-12-31)
DX: I13.2 Hypertensive heart and chronic kidney disease with heart failure and with stage 5 chronic kidney disease, or end stage renal disease (principal); N18.6 End stage renal disease; I81 Portal vein thrombosis; I47.2 Ventricular tachycardia; J96.11 Chronic respiratory failure with hypoxia; N25.81 Secondary hyperparathyroidism of renal origin; I95.89 Other hypotension; I27.2 Other secondary pulmonary hypertension; I50.23 Acute on chronic systolic (congestive) heart failure; I69.351 Hemiplegia and hemiparesis following cerebral infarction affecting right dominant side; D69.59 Other secondary thrombocytopenia; I42.8 Other cardiomyopathies; E11.22 Type 2 diabetes mellitus with diabetic chronic kidney disease; E11.42 Type 2 diabetes mellitus with diabetic polyneuropathy; E11.51 Type 2 diabetes mellitus with diabetic peripheral angiopathy without gangrene; I08.1 Rheumatic disorders of both mitral and tricuspid valves; I48.0 Paroxysmal atrial fibrillation; D63.1 Anemia in chronic kidney disease; J44.9 Chronic obstructive pulmonary disease, unspecified; M19.91 Primary osteoarthritis, unspecified site; G89.29 Other chronic pain; E78.5 Hyperlipidemia, unspecified; G47.30 Sleep apnea, unspecified; G25.81 Restless legs syndrome; M81.0 Age-related osteoporosis without current pathological fracture; K21.9 Gastro-esophageal reflux disease without esophagitis; F10.21 Alcohol dependence, in remission; H26.9 Unspecified cataract; I25.10 Atherosclerotic heart disease of native coronary artery without angina pectoris; Z99.81 Dependence on supplemental oxygen; Z99.2 Dependence on renal dialysis; Z86.19 Personal history of other infectious and parasitic diseases; Z87.891 Personal history of nicotine dependence; Z95.810 Presence of automatic (implantable) cardiac defibrillator; Z87.442 Personal history of urinary calculi; Z86.718 Personal history of other venous thrombosis and embolism; Z79.4 Long term (current) use of insulin; Z79.899 Other long term (current) drug therapy; Z82.49 Family history of ischemic heart disease and other diseases of the circulatory system
CPT/HCPCS: 36415; 71020; 73501; 80048; 80053; 81001; 82550; 82553; 83036; 83735; 83880; 84100; 84443; 84484; 85025; 85610; 85730; 87040; 87070; 87086; 87205; 89050; 93005; 93923; 94640; 96374; 99285

== ENCOUNTER 2017-01-05 16:06 | Emergency (ER) | payer MEDICARE, OTHER ==
[2017-01-05 16:23] VITALS: RESP 18; TEMP 98.4
[2017-01-05] MEDS ORDERED: HYDROmorphone 1 MG/ML 1 ML SYRINGE IVP STA (16:31)
--- NOTE | 2017-01-05 16:34 | ED ---
Fall HPI - General Chief Complaint: Fall Stated Complaint: FALL Time Seen by Provider: 01/05/17 16:25 Source: patient, family, RN notes reviewed Mode of arrival: ambulatory - History of Present Illness Initial Comments: 61-year-old female presents to the emergency department with a chief complaint of fall. Patient states she was at home and her grandson was helping her to bed. Patient states she went up to move moving off the bed and when she stood up she lost her balance and fell backwards and hit her back on the dresser. Patient has neuropathy in the legs patient has many chronic disorders. Patient states that she feels as if she lost her balance due to her neuropathy. Patient denies any trauma to the head. Patient states she did not lose consciousness. Patient had a chest pain or shortness of breath she denies any lightheadedness or dizziness before the fall. Patient states that she seemed to have lost her balance and she fell backwards. Patient states that she was concerned due to her back pain and rib pain from the fall so she thought that she should be evaluated. Patient states she has had many chronic health issues. Patient states that she is not currently having any other symptoms at this time.Patient denies any recent fever, chills, shortness of breath, chest pain, abdominal pain, nausea vomiting, numbness or tingling, dysuria or hematuria, constipation or diarrhea, headaches or visual changes, or any other current symptoms. - Related Data Home Medications Medication Instructions Recorded Confirmed Insulin Glargine,Hum.rec.anlog 20 unit SQ HS 08/12/15 01/05/17 [Lantus Solostar] Ferrous Sulfate [Iron (65 MG 325 mg PO AC-SUPPER 08/13/15 01/05/17 Elemental)] Ergocalciferol [Vitamin D2 50,000 unit PO TH 04/01/16 01/05/17 (DRISDOL)] Methimazole 5 mg PO DAILY 04/01/16 01/05/17 Omeprazole [PriLOSEC] 20 mg PO DAILY 05/10/16 01/05/17 ALPRAZolam [Xanax] 1 mg PO HS 10/25/16 01/05/17 Albuterol Nebulized [Ventolin 2.5 mg INHALATION RT-QID 10/25/16 01/05/17 Nebulized] HYDROcodone/APAP 10-325MG [[place] 1 tab PO Q6H 10/25/16 01/05/17 10-325] Lidocaine 4% Cream [Lmx 4] 1 applic TOPICAL BID PRN 10/25/16 01/05/17 Folic Acid-Vit B Complex-Vit C 1 cap PO DAILY 12/07/16 01/05/17 [Nephrocaps] hydrOXYzine HCL [Atarax] 25 mg PO BID PRN 12/28/16 01/05/17 Budesonide/Formoterol Fumarate 2 puff INHALATION RT-BID 01/05/17 01/05/17 [Symbicort 160-4.5 Mcg Inhaler] Previous Rx's Medication Instructions Recorded Torsemide [Demadex] 60 mg PO DAILY tab 08/20/15 Magnesium Oxide [Mag-Ox] 250 mg PO TID tab 08/25/16 Midodrine [ProAmatine] 5 mg PO DAILY #60 tab 10/25/16 Calcium Acetate [PhosLo] 667 mg PO TID-W/MEALS #90 cap 12/12/16 Amiodarone [Cordarone] 200 mg PO BID #60 tab 01/01/17 Metoprolol Succinate (ER) [Toprol 25 mg PO HS #30 tab.er.24h 01/01/17 XL] Pregabalin [Lyrica] 25 mg PO DAILY #30 cap 01/01/17 Allergies Allergy/AdvReac Type Severity Reaction Status Date / Time ketorolac tromethamine Allergy Severe Rash/Hives Verified 01/05/17 16:23 [From Toradol] influenza virus vaccine, Allergy Intermediate Swelling Verified 01/05/17 16:23 specific [Influenza Virus Vacc,Specific] Review of Systems ROS Statement: Those systems with pertinent positive or pertinent negative responses have been documented in the HPI. ROS Other: All systems not noted in ROS Statement are negative. Past Medical History Past Medical History: Atrial Fibrillation, Chest Pain / Angina, Heart Failure, COPD, CVA/TIA, Deep Vein Thrombosis (DVT), GERD/Reflux, Hyperlipidemia, Hypertension, Memory Impairment, Renal Disease Additional Past Medical History / Comment(s): short term memory impairment;CHF- , UTI with sepsis-septic shock 10/2014; IDDM type II; back pain; neuropathy bilateral feet/legs; osteoporosis;DJD, fx sternum; blood clots/DVT, 2001 CVA with R sided weaknes, chronic kidney disease-peritoneal dialysis, 03/2016 L humerus fx, RLS, paroxysmal AFib, anemia multifactoral, cataracts bilaterally, anemia, rheumatic fever, urinary calculus , C Diff colitis, UTIs, UTI with sepsis/septic shock, chronic abdominal pain, falls. History of Any Multi-Drug Resistant Organisms: None Reported Date of last positivie culture/infection: None MDRO Source:: None Past Surgical History: Adenoidectomy, AICD, Bladder Surgery, Cholecystectomy, Hysterectomy, Pacemaker, Tonsillectomy Additional Past Surgical History / Comment(s): AICD/pacer, colonoscopy with benign polyps removed, EGD with polyps removed from vocal cord; Benign R lung biopsy; bladder susp, peritoneal dialysis cath inserted , fecal transplant for cdiff 08/[address] [facility] Past Anesthesia/Blood Transfusion Reactions: No Reported Reaction Additional Past Anesthesia/Blood Transfusion Reaction / Comment(s): Pt has clausterphobia-doesn't like to be in room with door closed . Pt has received blood in past without reaction. 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 She has a daughter who is very involved with her care. She has [facility] home care nurse and PT/OT. She NO LONGER DRIVES-HER DAUGHTER TAKES HER TO APPTS AND DOES SHOPPING. Pt uses a walker or cane to ambulate most of the time now. Pt has home o2 at 2.5L/NC ATC, a nebilizer, and hospital bed. 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 Adult daughter is very helpful with day- to-day activity and helping her with her CAPD. No animal exposures. No experience. No international travel Smoking Status: Former smoker Past Alcohol Use History: None Reported Additional Past Alcohol Use History / Comment(s): Pt startes smoking in 1965 and quit in 2011 Past Drug Use History: None Reported Additional Drug Use History / Comment(s): Pt has hx of alcoholism. She has not drank alcohol for 25 yrs. - Past Family History Sister(s) Family Medical History: Cancer Additional Family Medical History / Comment(s): SISTER IN HER MID 40'S OF [place] LYMPHOMA. Father Family Medical History: Congestive Heart Failure (CHF), COPD, Deep Vein Thrombosis (DVT) Additional Family Medical History / Comment(s): ETOH ABUSE. FATHER AT AGE 67 OF EMPHYSEMA AND CHF AND ETOH. Mother Family Medical History: Cancer Additional Family Medical History / Comment(s): MOTHER AT AGE 53 YRS OF LEUKEMIA. General Exam - General Exam Comments Initial Comments: General: The patient is awake and alert, in no distress, and does not appear acutely ill. Eye: Pupils are equal, round and reactive to light, extra-ocular movements are intact; there is normal conjunctiva bilaterally. No signs of icterus. Ears, nose, mouth and throat: There are moist mucous membranes and no oral lesions. Neck: The neck is supple, there is no tenderness. Cardiovascular: There is a regular rate and rhythm. No murmur, rub or gallop is appreciated. Tenderness increased along the right lower rib cage Respiratory: Lungs are clear to auscultation, respirations are non-labored, breath sounds are equal. No wheezes, stridor, rales, or rhonchi. Gastrointestinal: Soft, non-distended, non-tender abdomen without masses or organomegaly noted. There is no rebound or guarding present. No CVA tenderness. Bowel sounds are unremarkable. Back: There is tenderness in the midline to the lumbar spine There is no obvious deformity. No rashes noted. Musculoskeletal: Normal ROM, patient does have feeling with bilateral lower extremities Neurological: CN II-XII intact, There are no obvious motor or sensory deficits. Coordination appears grossly intact. Speech is normal. Skin: Skin is warm and dry and no rashes or lesions are noted. Psychiatric: Cooperative, appropriate mood & affect, normal judgment. Limitations: physical limitation Course Vital Signs 01/05/17 16:17 Temperature 98.4 F Pulse Rate 105 H Respiratory 18 Rate Blood Pressure 106/60 O2 Sat by Pulse 95 Oximetry Medical Decision Making - Medical Decision Making 61-year-old female presents fall when trying to situate her bedsheet. This time we will do x-rays and give the patient pain control. At this time patient' s x-rays were reviewed and negative. At this time patient is feeling better with the medication. At this time we discussed continuing her home pain medication. We discussed follow-up. We did discuss when to follow-up for repeat x-rays and return parameters. The patient stated that she understood all questions have been answered. She will be discharged home. - Radiology Data Radiology results: report reviewed, image reviewed Disposition Clinical Impression: Fall, Contusion of rib on right side, Lumbar contusion Disposition: HOME SELF-CARE Condition: Stable Instructions: Fall Prevention for Older Adults (ED), Contusion in Adults (ED) Additional Instructions: Please use medication as discussed. Please follow up with family doctor if symptoms have not improved over the next two days. Please return to the emergency room if your symptoms increase or worsen or for any other concerns. Referrals: Alvin Kothari MD [Primary Care Provider] - 1-2 days Time of Disposition: 17:20
--- NOTE | 2017-01-05 17:00 | XR ---
EXAMINATION TYPE: XR lumbar spine 2 or 3V DATE OF EXAM: 01/05/2017 4:57 PM CLINICAL HISTORY: pain TECHNIQUE: Three views of the lumbar spine are submitted. COMPARISON: None. FINDINGS: There are 5 lumbar type vertebral bodies identified. The lumbar spine shows satisfactory alignment w ithout evidence of acute fracture or dislocation. Vertebral body heights are within normal limits. This mild scattered degenerative disc space narrowing. Facet joint arthropathy identified. The overl donny soft tissue appears unremarkable. IMPRESSION: No acute fracture or dislocation is seen in the lumbar spine. ICD 10 NO FRACTURE, INITIAL EVALUATION
--- NOTE | 2017-01-05 17:06 | XR ---
EXAMINATION TYPE: XR ribs RT w pa chest xray DATE OF EXAM: 01/05/2017 4:57 PM COMPARISON: 12/26/2016 HISTORY: Rib pain TECHNIQUE: 5 views FINDINGS: Heart is enlarged. There is no heart failure. There is no evidence of pleural effusion or p neumothorax. Right lung is clear of infiltrate. I see no displaced rib fracture. IMPRESSION: Negative right rib exam. Cardiomegaly.
[2017-01-05 17:32] VITALS: BP 110/60; PULSE 96
== END 2017-01-05 17:40 | disposition home or self-care (01) ==
LOC: EC 16:06
DX: S20.211A Contusion of right front wall of thorax, initial encounter (principal); S30.0XXA Contusion of lower back and pelvis, initial encounter; I48.91 Unspecified atrial fibrillation; I11.0 Hypertensive heart disease with heart failure; I50.9 Heart failure, unspecified; J44.9 Chronic obstructive pulmonary disease, unspecified; K21.9 Gastro-esophageal reflux disease without esophagitis; E78.5 Hyperlipidemia, unspecified; E11.40 Type 2 diabetes mellitus with diabetic neuropathy, unspecified; M81.0 Age-related osteoporosis without current pathological fracture; D64.9 Anemia, unspecified; Z87.891 Personal history of nicotine dependence; Z79.891 Long term (current) use of opiate analgesic; Z79.51 Long term (current) use of inhaled steroids; Z79.899 Other long term (current) drug therapy; Z88.7 Allergy status to serum and vaccine; Z88.6 Allergy status to analgesic agent; W01.0XXA Fall on same level from slipping, tripping and stumbling without subsequent striking against object, initial encounter; Y92.009 Unspecified place in unspecified non-institutional (private) residence as the place of occurrence of the external cause
CPT/HCPCS: 71101; 72100; 99284; 96374; J1170